=== PATIENT | female | born 1935 | race Caucasian/White ===

== ENCOUNTER → 2017-07-29 | Outpatient (CLI) | payer OTHER | LOC: RAD 11:14 | DX: M25.572 Pain in left ankle and joints of left foot (principal) ==

== ENCOUNTER → 2017-12-18 | Outpatient (CLI) | payer OTHER | LOC: MRI 11:58 | DX: I70.90 Unspecified atherosclerosis (principal); R60.0 Localized edema ==

== ENCOUNTER → 2018-03-09 | Outpatient (CLI) | payer OTHER | LOC: HYPER 06:41 | DX: I70.243 Atherosclerosis of native arteries of left leg with ulceration of ankle (principal); L97.321 Non-pressure chronic ulcer of left ankle limited to breakdown of skin; I73.9 Peripheral vascular disease, unspecified; I10 Essential (primary) hypertension; F17.200 Nicotine dependence, unspecified, uncomplicated ==

== ENCOUNTER → 2018-03-25 | Outpatient (CLI) | payer OTHER | LOC: HYPER 06:45 | DX: I70.243 Atherosclerosis of native arteries of left leg with ulceration of ankle (principal); L97.321 Non-pressure chronic ulcer of left ankle limited to breakdown of skin; I87.2 Venous insufficiency (chronic) (peripheral); I10 Essential (primary) hypertension; F17.200 Nicotine dependence, unspecified, uncomplicated; Z95.1 Presence of aortocoronary bypass graft ==

== ENCOUNTER → 2018-04-15 | Outpatient (CLI) | payer OTHER | LOC: HYPER 07:03 | DX: I70.243 Atherosclerosis of native arteries of left leg with ulceration of ankle (principal); L97.321 Non-pressure chronic ulcer of left ankle limited to breakdown of skin; I10 Essential (primary) hypertension; I25.10 Atherosclerotic heart disease of native coronary artery without angina pectoris; L84 Corns and callosities; F17.200 Nicotine dependence, unspecified, uncomplicated; Z95.1 Presence of aortocoronary bypass graft ==

== ENCOUNTER → 2018-05-12 | Outpatient (CLI) | payer OTHER | LOC: HYPER 06:40 | DX: I70.243 Atherosclerosis of native arteries of left leg with ulceration of ankle (principal); L97.321 Non-pressure chronic ulcer of left ankle limited to breakdown of skin; I10 Essential (primary) hypertension; L84 Corns and callosities; I25.10 Atherosclerotic heart disease of native coronary artery without angina pectoris; F17.200 Nicotine dependence, unspecified, uncomplicated; Z95.0 Presence of cardiac pacemaker ==

== ENCOUNTER 2018-05-23 11:16 | Emergency (ER) | payer OTHER ==
[~2018-05-23] VITALS: Ht 165.1 cm; Wt 53.1 kg
--- NOTE | ~2018-05-23 | EKG ---
[place] [address] [facility] [place] [address] ELECTROCARDIOGRAM REPORT Name: NEIDA TYSON Room #: [facility]#: [id number] Admission: 05/23/18 Attend Phys: Discharge: Date of : 34 Report #: [id number] THIS REPORT FOR: //name// [facility] ED Test Date: 2018-05-23 Test Time: 11:45:04 Pat Name: NEIDA TYSON Department: Room: Gender: F Pier Hand Helper: KRISTOPHER : 1935 Requested By: Ezio Donovan Order Number: [id number] MD: Darrel Ayoub Measurements Intervals [place] Rate: 58 P: 86 HI: 157 QRS: 35 QRSD: 97 T: 33 QT: 438 QTc: 431 Interpretive Statements Sinus bradycardia Probable left atrial enlargement Otherwise no significant abnormality Compared to ECG 11/24/2003 21:34:17 No significant change was found Electronically Signed On 05-23-2018 13:57:27 CDT by Darrel Ayoub [email or web address] <ELECTRONICALLY SIGNED> By: Darrel Ayoub MD, [facility] 05/23/18 1357 1145 1145 Darrel Ayoub MD, FACC /EPI
[2018-05-23 11:39] LABS: ABSOLUTE NEUTROPHILS 3.4 thou/uL (1.4-8.2); BASOPHILS 0.6 % (0.0-2.0); EOSINOPHILS 1.4 % (0.0-3.0); HEMATOCRIT 34.4 % (37.0-47.0); HEMOGLOBIN 11.5 gm/dL (12.0-15.0); LYMPHOCYTES 20.8 % (24.0-44.0); MCH 27.3 pg (26.0-34.0); MCHC 33.4 g/dL (28.0-37.0); MCV 81.8 fL (80.0-100.0); MONOCYTES 11.8 % (1.0-8.0); PLATELET COUNT 237 thou/uL (150-400); POLYS 65.4 % (36.0-66.0); RDW 16.1 % (10.5-14.5); WBC 5.3 thou/uL (4.0-11.0)
[2018-05-23 11:49] LABS: ANION GAP 8 mmol/L (7-16); BUN 19 mg/dL (7-18); CALCIUM 9.1 mg/dL (8.5-10.1); CHLORIDE 100 mmol/L (98-107); CO2 24 mmol/L (21-32); CREATININE 0.9 mg/dL (0.6-1.0); GLUCOSE 109 mg/dL (74-106); POTASSIUM 4.6 mmol/L (3.5-5.1); SODIUM 132 mmol/L (136-145)
[2018-05-23 11:50] LABS: URINE BILIRUBIN NEGATIVE (Negative); URINE BLOOD NEGATIVE (Negative); URINE CLARITY CLEAR; URINE COLOR YELLOW; URINE GLUCOSE-RANDOM* NEGATIVE (Negative); URINE KETONES 1+ (Negative); URINE LEUKOCYTES-REFLEX NEGATIVE (Negative); URINE NITRITE-REFLEX NEGATIVE (Negative); URINE PROTEIN (DIPSTICK) TRACE (Negative); URINE SPECIFIC GRAVITY 1.015 (1.005-1.035); URINE UROBILINOGEN 0.2 E.U./dl (0.2-1.0)
[2018-05-23 11:56] LABS: TROPONIN-I <0.06 ng/mL (<0.06)
[2018-05-23 15:47] VITALS: BP 155/87
== END 2018-05-23 15:49 | disposition home or self-care (01) ==
LOC: ER 11:16
PROVIDERS: Emergency Medicine
DX: E86.0 Dehydration (principal); F17.210 Nicotine dependence, cigarettes, uncomplicated

== ENCOUNTER → 2018-08-06 | Outpatient (CLI) | payer OTHER | LOC: HYPER 08:09 | DX: I70.243 Atherosclerosis of native arteries of left leg with ulceration of ankle (principal); L97.321 Non-pressure chronic ulcer of left ankle limited to breakdown of skin; L84 Corns and callosities; I10 Essential (primary) hypertension; F17.200 Nicotine dependence, unspecified, uncomplicated; Z95.828 Presence of other vascular implants and grafts ==

== ENCOUNTER → 2019-01-21 | Outpatient (CLI) | payer OTHER ==
[~2019-01-21] VITALS: Ht 162.6 cm; Wt 53.1 kg
[~2019-01-21] MED LIST: ASPIR 8181 MG PO; CENTRUM SILVER1 EAC4 PO; CLONIDINE0.1 PO; GABAPENTIN 100100 MG PO; NORVASC5 MG PO; PLAVIX 75 MG TA75 M1 PO; TYLENOL EXTRA500 MG PO
[2019-01-21 08:35] VITALS: BP 101/47
== END | disposition home or self-care (01) ==
LOC: SPEC 07:48
DX: I70.213 Atherosclerosis of native arteries of extremities with intermittent claudication, bilateral legs (principal); I70.1 Atherosclerosis of renal artery; I74.3 Embolism and thrombosis of arteries of the lower extremities; R00.1 Bradycardia, unspecified; Z98.890 Other specified postprocedural states; I10 Essential (primary) hypertension; Z87.891 Personal history of nicotine dependence

== ENCOUNTER 2019-04-16 07:38 | Inpatient (IN) | payer OTHER ==
[~2019-04-16] VITALS: Ht 162.6 cm; Wt 54.6 kg
--- NOTE | ~2019-04-16 | H ---
[facility] [place] [address] HISTORY AND PHYSICAL Name: NEIDA TYSON Room #: 210-P ADM IN M.R.#: [id number] Admission: 04/16/19 ������������������ Attend Phys: Blaine Long MD Discharge: ������������������ Date of : 34 Report #: [id number] THIS REPORT FOR: //name// CC: Chevy Long DATE OF SERVICE: 04/16/2019 ATTENDING PHYSICIAN: Dr. Long. CHIEF COMPLAINT: Feeling lightheaded and having episode of near passing out. HISTORY OF PRESENT ILLNESS: The patient is an 83-year-old lady with known history of severe peripheral vascular disease and hypertension, who was complaining of having intermittent dizziness for the last 2 days. She woke up the morning of 04/16 and while she was making coffee, she has felt like she was going to pass out and had episode of diaphoresis. She denied having any chest pain, but did report that she had to sit down and was feeling lightheaded. The patient was brought to the Emergency Room and noted to have atrial fibrillation. The patient does not give any prior history of AFib. In view of her new onset of AFib, she was admitted to the hospital and admitted to telemetry and started on a Cardizem drip. This morning, she is feeling fine. Denies having any breathing difficulty. PAST MEDICAL HISTORY: Significant for history of the knee arthritis, history of rib fracture, carotid artery stenosis, status post right endarterectomy, essential hypertension, left lateral ankle ulcer, mesenteric artery stenosis and peripheral vascular disease. PAST SURGICAL HISTORY: Tonsillectomy, adenectomy, carotid endarterectomy. ALLERGIES: She is not known to be allergic to medications. MEDICATIONS: She was currently on was mag oxide, Tylenol, amlodipine, aspirin, clonidine 0.1 mg twice a day, Plavix, gabapentin and multivitamin. SOCIAL HISTORY: The patient does smoke. She drinks alcohol daily. She lives alone independently. REVIEW OF SYSTEMS: She denied any cough, fever, nausea, vomiting or chest pain. The patient did complain of having dizziness, did not report any abdominal pain or any urinary symptoms. PHYSICAL EXAMINATION: GENERAL: Pleasant lady who was resting in bed, did not appear to be in distress. She is awake, alert to place and person. [address] [address] HISTORY AND PHYSICAL Name: NEIDA TYSON Room #: [address] [place] [address]#: [id number] Admission: 04/16/19 ������������������ Attend Phys: Blaine Long MD Discharge: ������������������ Date of : 34 Report #: [id number] VITAL SIGNS: She was febrile with a temperature 36.7, pulse of 72, which was irregular, respiratory rate 18, blood pressure 148/67, oxygen saturation 100% on room air. HEENT: Skull was atraumatic. There is no pallor, no icterus. Mucosa was moist. NECK: Supple. LUNGS: Clear to auscultation bilaterally, no wheeze or crackles. HEART: First and second heart sound, which is regular. ABDOMEN: Soft, nontender. Bowel sounds normally heard. EXTREMITIES: Did not reveal edema. NEUROLOGIC: Nonfocal. LABORATORY DATA: On admission showed a sodium of 136, potassium 4.6, chloride 101, bicarbonate 26, BUN of 21, creatinine of 1, glucose was 122. White cell count was 6.1, hemoglobin 13.3, hematocrit 40.3 and a platelet count of 247. EKG showed atrial fibrillation with a rate of 100, normal axis, normal intervals, and there are no acute ST-segment changes noted. Urine was clear. Chest x-ray was clear, no acute process was noted on chest x-ray. ASSESSMENT: 1. New onset of atrial fibrillation. 2. Hypertension. 3. Peripheral vascular disease. PLAN: To admit her to telemetry, started on Cardizem drip and have a cardiology consultation. ��������������������������������������������� ���������������������������������������� By: ��������������������������������������������� 1001 1032 Alfred Monzon MD /nt
[2019-04-16 07:39] VITALS: BP 142/103
[2019-04-16] MEDS ORDERED: MAGOX 400400 MG PO (07:48)
[2019-04-16 07:49] LABS: ABSOLUTE NEUTROPHILS 4.3 thou/uL (1.4-8.2); BASOPHILS 0.3 % (0.0-2.0); EOSINOPHILS 1.2 % (0.0-3.0); HEMATOCRIT 40.3 % (37.0-47.0); HEMOGLOBIN 13.3 gm/dL (12.0-15.0); LYMPHOCYTES 17.2 % (24.0-44.0); MCH 27.4 pg (26.0-34.0); MCHC 33.1 g/dL (28.0-37.0); MCV 82.6 fL (80.0-100.0); MONOCYTES 10.1 % (1.0-8.0); PLATELET COUNT 247 thou/uL (150-400); POLYS 71.2 % (36.0-66.0); RBC 4.88 mil/uL (4.20-5.00); RDW 16.1 % (10.5-14.5); WBC 6.1 thou/uL (4.0-11.0)
[2019-04-16 07:57] LABS: ANION GAP 9 mmol/L (7-16); BUN 21 mg/dL (7-18); CALCIUM 9.4 mg/dL (8.5-10.1); CHLORIDE 101 mmol/L (98-107); CO2 26 mmol/L (21-32); GLUCOSE 122 mg/dL (74-106); POTASSIUM 4.6 mmol/L (3.5-5.1); SODIUM 136 mmol/L (136-145)
[2019-04-16 08:05] LABS: TROPONIN-I <0.06 ng/mL (<0.06)
[2019-04-16 09:04] LABS: URINE BILIRUBIN NEGATIVE (Negative); URINE BLOOD TRACE (Negative); URINE CLARITY CLEAR; URINE COLOR YELLOW; URINE GLUCOSE-RANDOM* NEGATIVE (Negative); URINE KETONES NEGATIVE (Negative); URINE NITRITE-REFLEX NEGATIVE (Negative); URINE PROTEIN (DIPSTICK) NEGATIVE (Negative); URINE UROBILINOGEN 0.2 E.U./dl (0.2-1.0)
[2019-04-16 09:05] LABS: URINE LEUKOCYTES-REFLEX 1+ (Negative)
[2019-04-16 09:15] LABS: BACTERIA-REFLEX 1-9 Few /HPF (None Seen); CASTS None Seen /LPF (None Seen); CRYSTALS None Seen /LPF (None Seen); SQUAMOUS 0-3 Few /LPF (0-3); URINE RBC 0-2 Rare /HPF (0-2); URINE WBC-REFLEX 0-5 Rare /HPF (0-5)
[2019-04-16 10:22] VITALS: BP 127/53
[2019-04-16 11:00] VITALS: BP 156/64
[2019-04-16 16:00] VITALS: BP 115/56
--- NOTE | 2019-04-16 16:57 | 2DMMODE ---
[facility] [address] [place] [address] 2 D/M-MODE ECHOCARDIOGRAM Name: NEIDA TYSON Room #: 210-P ADM IN .R.#: [id number] ������������� Admission: 04/16/19 ������������� Attend Phys: Hammad Chamorro Discharge: ��� ������������� ��� Date of : 34 Date of Service: 04/16/19 1657 �� Report #: [id number] �������� ��������������������������������������������[id number] THIS REPORT FOR: //name// APPROVED REPORT Study performed: 04/16/2019 15:29:46 EXAM: Comprehensive 2D, Doppler, and color-flow Echocardiogram Patient Location: In-Patient Room #: 210 Status: routine BSA: 1.59 HR: 92 bpm BP: 127/53 mmHg Other Information Study Quality: Adequate Risk Factors: Cardiac Risk Factors: HTN, Smoking Indications Atrial Fibrillation 2D Dimensions IVSd: 8.72 (7-11mm) LVOT Diam: 18.57 (18-24mm) LVDd: 39.40 mm PWd: 9.23 (7-11mm) Ascending Ao: 21.40 (22-36mm) LVDs: 21.08 (25-40mm) Left Atrium: 30.16 (27-40mm) Aortic Root: 31.64 mm IVC: 19.00 mm Aortic Valve AoV Peak Dell.: 1.26 m/s AO Peak Gr.: 6.91 mmHg LVOT Max P.60 mmHg LVOT Max V: 0.95 m/s MACY Vmax: 2.04 cm2 Mitral Valve E/A Ratio: 3.6 MV Decel. Time: 176.66 ms MV E Max Dell.: 0.97 m/s MV A Dell.: 0.27 m/s MV PHT: 51.23 ms [facility] [place] [address] 2 D/M-MODE ECHOCARDIOGRAM Name: NEIDA TYSON Room #: 210-P [facility].#: [id number] ������������� Admission: 04/16/19 ������������� Attend Phys: Hammad Chamorro Discharge: ��� ������������� ��� Date of : 34 Date of Service: 04/16/19 1657 �� Report #: [id number] �������� ��������������������������������������������[id number] Pulmonary Valve PV Peak Dell.: 1.02 m/s PV Peak Gr.: 4.15 mmHg Pulmonary Vein P Vein S: 0.35 m/s P Vein D: 0.57 m/s P Vein S/D Ratio: 0.61 Tricuspid Valve TR Peak Dell.: 3.02 m/s TR Peak Gr.: 36.36 mmHg Left Ventricle The left ventricle is normal size. There is normal LV segmental wall motion. There is normal left ventricular wall thickness. The left ventricular systolic function is normal. The left ventricular ejection fraction is within the normal range. LVEF is >55%. The left ventricular diastolic function is normal. Right Ventricle The right ventricle is normal size. There is normal right ventricular wall thickness. The right ventricular systolic function is normal. Atria The left atrium size is normal. The interatrial septum is intact with no evidence for an atrial septal defect. The right atrium size is normal. Aortic Valve The aortic valve is not well visualized. No aortic regurgitation is present. There is no aortic valvular stenosis. Mitral Valve The mitral valve is normal in structure. Trace mitral regurgitation. No evidence of mitral valve stenosis. There is no evidence of mitral valve prolapse. Tricuspid Valve The tricuspid valve is normal in structure. There is no tricuspid valve stenosis. Trace tricuspid regurgitation with an estimated PAP of 39 mmHg. Pulmonic Valve Pulmonic valve is not well visualized. There is no pulmonic valvular regurgitation. [place] [id number] 2 D/M-MODE ECHOCARDIOGRAM Name: NEIDA TYSON Room #: 210-P [facility] IN .R.#: [id number] ������������� Admission: 04/16/19 ������������� Attend Phys: Hammad Chamorro Discharge: ��� ������������� ��� Date of : 33 Date of Service: 04/16/19 1657 �� Report #: [id number] �������� ��������������������������������������������[id number] [employer] The aortic root is normal in size. IVC is normal in size and collapses >50% with inspiration. Pericardium There is no pericardial effusion. Critical Notification Critical Value: No <Conclusion> The left ventricle is normal size. LVEF is >55%. The aortic valve is not well visualized. The mitral valve is normal in structure. The tricuspid valve is normal in structure. Trace tricuspid regurgitation with an estimated PAP of 39 mmHg. There is no pericardial effusion. ��������������������������������������������� <ELECTRONICALLY SIGNED> ���������������������������������������� By: Jean Carlos Lowe MD ��������������������������������������������� 04/16/191656 56 56 Jean Carlos Lowe MD /INF
--- NOTE | 2019-04-16 17:18 | NUR ---
83 YO FEMALE ADMITTED TO 210 FROM ED, VSS, AFIB ON TELE, ALERT AND ORIENTED X 4, COMPLAINS OF SYNCOPE WHEN STANDING UP, NO COMPLAINTS OF PAIN, WILL CONTINUE TO MONITOR
[2019-04-16 20:17] VITALS: BP 112/49
[2019-04-17] VITALS: BP 133/69
[2019-04-17 04:06] VITALS: BP 158/68
--- NOTE | 2019-04-17 05:05 | NUR ---
ASSUMED PT CARE AT 1900 WITH NO SIGN OF DISTRESS NOTED IN PT. PT IS LAYING IN BED COMFORTABLE. NO FAMILY AT BEDSIDE. PT IS ALERT AND ORIENTED, ROOM AIR. VITAL SIGNS STABLE. AFIB IS PRESENT AND CARDIZEM DRIP IS BEEN GIVE. NO SCHEDULE HS MEDS ADMINISTERED TO PT. NO COMPLAINTS OF PAIN BY PATIENT, FALL PRECAUTION IN PLACE. NO SIGN OF DISTRESS NOTED THROUGHOUT THE NIGHT, DENIES ANY NEEDS AT THIS TIME.
[2019-04-17 08:31] VITALS: BP 148/67
--- NOTE | 2019-04-17 14:13 | NUR ---
ASSUMED CARE AT 0700, SHIFT ASSESSMENT DONE, VSS. REMAINS ON CARDIZEM DRIP, STILL AFIB ON THE MONITOR, RATE CONTROLLED, OCCASIONAL TACYCARDIA WITH ACTIVITY. DENIES ANY NAUSEA, VOMITING, PAIN. CALLS APPROPRIATELY, ROOM AIR. WILL CONTINUE TO ASSESS AND ASSIST WITH ADLs NEEDED.
[2019-04-17 16:00] VITALS: BP 130/63
[2019-04-17 19:42] VITALS: BP 146/64
--- NOTE | 2019-04-18 05:03 | NUR ---
ASSUMED PT CARE AT 1900 WITH NO SIGN OF DISTRESS NOTED IN PT, PT IS ALERT AND ORIENTED AND DENIES ANY NEED AT THIS TIME. ASSESSMENT COMPLETED AND CHARTED. VITAL SIGNS STABLE. SCHEDULED MEDS ADMINISTERED TO PT. PT IS EDUCATED ON STRESS TEST TO BE DONE, PT VERBALIZES UNDERSTANDING. DENIES ANY FURTHER NEEDS AT THIS TIME.
[2019-04-18 05:16] VITALS: BP 130/62
[2019-04-18 07:16] VITALS: BP 141/72
[2019-04-18 08:00] VITALS: BP 139/75
--- NOTE | 2019-04-18 09:05 | EKG ---
[place] [address] [facility] [place] [address] ELECTROCARDIOGRAM REPORT Name: TRICIA TYSONN Rodriguez Room #: 210-P ADM IN M.R.#: [id number] ������������������ Admission: 04/16/19 ������������������ Attend Phys: Blaine Long MD Discharge: ������������������ Date of : 34 Report #: [id number] ����������������������������������������������������������������� [id number] THIS REPORT FOR: //name// [facility] ED Test Date: 2019-04-16 Test Time: 07:48:47 Pat Name: NEIDA TYSON Department: Room: 210 Gender: F Service Delivery Management Consultant: Rosanne BOND RN : 1935 Requested By: Ezio Donovan Order Number: [id number] MD: Darrel Ayoub Measurements Intervals [place] Rate: 105 P: [place]: QRS: 45 QRSD: 93 T: -80 QT: 309 QTc: 409 Interpretive Statements Atrial fibrillation Borderline repolarization abnormality Compared to ECG 05/23/2018 11:45:04 Sinus bradycardia no longer present Electronically Signed On 04-18-2019 9:04:44 CDT by Darrel Ayoub [email or web address] ��������������������������������������������� <ELECTRONICALLY SIGNED> ���������������������������������������� By: Darrel Ayoub MD, [facility] ��������������������������������������������� 04/18/19 0904 7 Darrel Ayoub MD, [facility] /EPI
[2019-04-18 15:28] VITALS: BP 115/51
[2019-04-18 17:49] VITALS: BP 115/51
--- NOTE | 2019-04-20 12:25 | D ---
[facility] [place] [address] DISCHARGE SUMMARY Name: NEIDA TYSON Room #: 210-P [facility] IN M.R.#: [id number] Admission: 04/16/19 ������������������ Attend Phys: Blaine Long MD Discharge: 04/18/19 ������������������ Date of : 34 Report #: [id number] THIS REPORT FOR: //name// CC: Chevy Long DATE OF SERVICE: 04/18/2019 FINAL DIAGNOSIS: Atrial fibrillation. HOSPITAL COURSE: The patient was admitted with tachycardia and was found to have atrial fibrillation. She had some mild prerenal azotemia with elevated BUN, but this was minimal in extent. She was treated medically and followed by the Cardiology Service. Echocardiogram and nuclear stress test were obtained, which were fairly unremarkable. Rate control was obtained and she was placed on Eliquis for stroke prevention. DISPOSITION: She is discharged to home with diet and activity as tolerated. Follow up with Dr. Davis in a week. MEDICATIONS: Tylenol, aspirin 81 mg, clonidine 0.1 mg b.i.d., Plavix 75 mg, gabapentin 100 mg, multivitamin, magnesium, amlodipine is discontinued and she will have verapamil 180 mg a day and Eliquis 5 mg twice a day. ��������������������������������������������� <ELECTRONICALLY SIGNED> ���������������������������������������� By: Blaine Long MD ��������������������������������������������� 04/20/19 1225 1031 1050 Blaine Long MD /nt
== END 2019-04-18 18:46 | disposition home or self-care (01) | DRG 310 ==
LOC: ER 07:38 → 2N 09:21 → EROBS 09:21 → 2N 10:39
PROVIDERS: Emergency Medicine; ADMIT Internal Medicine Geriatric Medicine
DX: I48.91 Unspecified atrial fibrillation (principal); I10 Essential (primary) hypertension; I73.9 Peripheral vascular disease, unspecified; F17.210 Nicotine dependence, cigarettes, uncomplicated; Z87.81 Personal history of (healed) traumatic fracture; Z79.02 Long term (current) use of antithrombotics/antiplatelets; Z79.82 Long term (current) use of aspirin; Z79.899 Other long term (current) drug therapy
CPT/HCPCS: 10081

== ENCOUNTER 2019-04-20 10:50 | Inpatient (IN) | payer OTHER ==
[2019-04-20] VITALS (33 sets, daily range): BP systolic 70–163; BP diastolic 31–98
[~2019-04-20] VITALS: Ht 162.6 cm; Wt 58.7 kg
--- NOTE | ~2019-04-20 | HC ---
[facility] [place] [address] CONSULTATION Name: NEIDA TYSON Room #: 246-P ADM IN M.R.#: [id number] Admission: 04/20/19 ������������������ Attend Phys: Blaine Long MD Discharge: ������������������ Date of : 34 Report #: [id number] THIS REPORT FOR: //name// CC: Chevy Long DATE OF SERVICE: 04/21/2019 SURGICAL CONSULTATION REASON FOR CONSULTATION: Weakness and hypotension and abnormal CT scan, possible hemorrhage in the abdomen. HISTORY OF PRESENT ILLNESS: The patient is an 83-year-old who is known to me. 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 The patient was recently hospitalized on Thursday, the . The patient came in because of feeling lightheaded and near syncopal episode. The patient was noted to have atrial fibrillation with RVR. The patient went home on Thursday on Eliquis and another medication. The patient was feeling good yesterday and she took her pills and then she started to feel bad. The patient also happened to be on aspirin and Plavix also. The patient started to see things and then had an episode of diarrhea. She has reportedly some back pain. She denies any abdominal pain, no nausea or vomiting. The patient came to the Emergency Room and apparently she was given fluid in the transport by EMS and also atropine. She was given some more fluids in the ER and then blood pressure was low 88/44. The patient was started on a pressor. The patient had a CT performed, which is quite extensive. There is some free fluid. The radiologist thought that there maybe a little bit of fluid in pelvis , but the CT scan was done without contrast. The patient is being on a new blood thinner. The nurse from the ICU called for evaluation. The patient was recommended to be typed and crossed just in case her hemoglobin drops and actually overnight her hemoglobin has stayed fine. White count is normal, lactic acid is normal. Her creatinine is fine. The patient this morning is feeling better, but she is still quite weak. She does not have any complaining of abdominal pain. She has not had any prior surgeries to speak of except for cataracts. The patient does smoke and then she does drink couple of small scotch. PHYSICAL EXAMINATION: GENERAL: The patient is alert and oriented. She is not in distress. LUNGS: Clear. ABDOMEN: She is soft, nondistended, nontender. No guarding or rigidity. Laboratory was evaluated and her hemoglobin is stable at 10.2, white count 9000, platelets are 210. Creatinine 0.9, BUN 20. The patient did not require any pressors. After talking to the nurse from the [address] [address] CONSULTATION Name: NEIDA TYSON Room #: 246-P ADM IN M.R.#: [id number] Admission: 04/20/19 ������������������ Attend Phys: Blaine Long MD Discharge: ������������������ Date of : 34 Report #: [id number] ICU, about 5 o'clock she weaned her off the pressors. She did have significant hypotension early afternoon yesterday. I am not quite sure maybe she was quite dehydrated. 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 Unfortunately, he did pass away last year in September. She is still pretty active. She did have some difficulty last Thursday and hospitalized with diagnosis of atrial fibrillation with rapid ventricular response. The patient sent home on verapamil and Eliquis. She is also on Plavix and aspirin, which does raise the possibility that she has some bleeding may be possible spontaneous bleeding. I do not see anything in bleeding in the retroperitoneum. She does have some ascites. It is hard to tell that is blood. The patient's hemoglobin has not dropped any, so I doubt that she has had any bleeding complication. I do not find anything on exam to suggest any acute process. No evidence of peritonitis. She did have an episode of diarrhea. I do not know if it is worth doing a colonoscopy. GI is here looking at her. My impression was discussed with GI and also Dr. Edy Davis. At this point, I do not think a contrast CT scan of the abdomen and pelvis much. We will follow. ��������������������������������������������� ���������������������������������������� By: ��������������������������������������������� 1034 1519 Vlad Morgan MD /nt
[~2019-04-20 10:50] MED LIST changes: +MAGOX 400400 MG PO
[2019-04-20 11:30] LABS: BASOPHILS 0.3 % (0.0-2.0); EOSINOPHILS 0.3 % (0.0-3.0); HEMOGLOBIN 9.7 gm/dL (12.0-15.0); LYMPHOCYTES 9.2 % (24.0-44.0); MCH 27.2 pg (26.0-34.0); MCHC 32.5 g/dL (28.0-37.0); MCV 83.8 fL (80.0-100.0); MONOCYTES 8.7 % (1.0-8.0); PLATELET COUNT 219 thou/uL (150-400); POLYS 81.5 % (36.0-66.0); RBC 3.57 mil/uL (4.20-5.00); RDW 16.3 % (10.5-14.5); WBC 7.3 thou/uL (4.0-11.0)
[2019-04-20 11:32] LABS: ANION GAP 10 mmol/L (7-16); BUN 24 mg/dL (7-18); CALCIUM 8.2 mg/dL (8.5-10.1); CHLORIDE 101 mmol/L (98-107); CO2 23 mmol/L (21-32); CREATININE 1.1 mg/dL (0.6-1.0); GLUCOSE 155 mg/dL (74-106); POTASSIUM 4.5 mmol/L (3.5-5.1); SODIUM 134 mmol/L (136-145)
[2019-04-20 11:32] LABS: URINE BILIRUBIN NEGATIVE (Negative); URINE BLOOD NEGATIVE (Negative); URINE CLARITY CLEAR; URINE COLOR YELLOW; URINE GLUCOSE-RANDOM* NEGATIVE (Negative); URINE KETONES NEGATIVE (Negative); URINE LEUKOCYTES-REFLEX NEGATIVE (Negative); URINE NITRITE-REFLEX NEGATIVE (Negative); URINE PROTEIN (DIPSTICK) NEGATIVE (Negative); URINE UROBILINOGEN 0.2 E.U./dl (0.2-1.0)
[2019-04-20 11:37] LABS: APTT 25.4 Seconds (24.5-32.8); INR 1.1; PROTIME 11.3 Seconds (9.3-11.4)
[2019-04-20 11:42] LABS: ALBUMIN 2.9 g/dL (3.4-5.0); MAGNESIUM 1.9 mg/dL (1.8-2.4); SGOT 67 U/L (15-37); SGPT 56 U/L (30-65); TOTAL BILIRUBIN 0.3 mg/dL (<0.1-1.0); TOTAL PROTEIN 5.9 g/dL (6.4-8.2); TROPONIN-I <0.06 ng/mL (<0.06)
[2019-04-20] MEDS ORDERED: ELIQUIS5 MG PO (11:51)
[2019-04-20] MEDS ORDERED: CLONIDINE HCL0.1 MG PO (11:51)
[2019-04-20] MEDS ORDERED: VERAPAMIL HCL180 M2 PO (11:51)
--- NOTE | 2019-04-20 13:37 | NUR ---
PER SHALOM IN ICU, JALEESA WILL BE RN; OFF UNIT PRIOR TO ROOM ASSIGNMENT; JALEESA WILL CALL ME BACK ONCE RETURNS TO ICU
--- NOTE | 2019-04-20 18:42 | NUR ---
ORDER VERIFIED. CONSENT OBTAINED. TL PICC PLACED TO R BASILIC VEIN WITH U.S GUIDANCE PER HOSPITAL P&P. LIDOCAINE 2ML SQ GIVEN. VEIN ACCESSED WITH 1 STICK. GUIDEWIRE ADVANCED EASILY. VEIN DILATED. GUIDEWIRE REMOVED INTACT. LINE TRIMMED TO 40CM. LINE PLACED WITH 3CM EXTERNAL. CXR OBTAINED. LINE IN THE SVC. PICC OK TO USE
[2019-04-20 18:46] LABS: HEMATOCRIT 31.6 % (37.0-47.0); HEMOGLOBIN 10.4 gm/dL (12.0-15.0); MCH 27.3 pg (26.0-34.0); MCV 82.9 fL (80.0-100.0); RBC 3.82 mil/uL (4.20-5.00); RDW 16.3 % (10.5-14.5); WBC 10.9 thou/uL (4.0-11.0)
[2019-04-20 18:53] LABS: CALCIUM 7.7 mg/dL (8.5-10.1); CREATININE 1.4 mg/dL (0.6-1.0); POTASSIUM 4.8 mmol/L (3.5-5.1)
--- NOTE | 2019-04-20 19:30 | NUR ---
Pt was admitted to the ICU from ED. Reported low back pain of 10/10. Dr Long was notified and CT Scan of Abd/Pelvis was obtained. Dr Long notified of results and additional orders obtained. Pt was medicated with one dose of Fentanyl 12.5 mg IV with minimal pain relief. Consults called. Weaning Levopehd gtt down. Report given to RN assuming care.
[2019-04-21] VITALS (40 sets, daily range): BP systolic 120–194; BP diastolic 34–89
[2019-04-21 00:16] LABS: HEMATOCRIT 28.6 % (37.0-47.0); HEMOGLOBIN 9.5 gm/dL (12.0-15.0)
[2019-04-21 05:36] LABS: HEMOGLOBIN 10.2 gm/dL (12.0-15.0); MCH 27.4 pg (26.0-34.0); MCHC 32.9 g/dL (28.0-37.0); MCV 83.2 fL (80.0-100.0); RBC 3.73 mil/uL (4.20-5.00); RDW 16.2 % (10.5-14.5)
[2019-04-21 05:44] LABS: CALCIUM 7.5 mg/dL (8.5-10.1); CREATININE 0.9 mg/dL (0.6-1.0); POTASSIUM 4.3 mmol/L (3.5-5.1)
--- NOTE | 2019-04-21 07:28 | EKG ---
[place] [address] [facility] [place] [address] ELECTROCARDIOGRAM REPORT Name: TRICIA TYSONN Rodriguez Room #: 246-P ADM IN M.R.#: [id number] ������������������ Admission: 04/20/19 ������������������ Attend Phys: Blaine Long MD Discharge: ������������������ Date of : 34 Report #: [id number] ����������������������������������������������������������������� [id number] THIS REPORT FOR: //name// [facility] ED Test Date: 2019-04-20 Test Time: 10:57:32 Pat Name: NEIDA TYSON Department: Room: 246 Gender: F Van Loader: LILA : 1935 Requested By: Santiago Casarez Order Number: [id number] MD: Darrel Ayoub Measurements Intervals [place] Rate: 53 P: [place]: QRS: 48 QRSD: 111 T: 40 QT: 511 QTc: 480 Interpretive Statements Atrial fibrillation RSR' in V1 or V2, probably normal variant Compared to ECG 04/16/2019 07:48:47 Heart rate has slowed Electronically Signed On 04-21-2019 7:28:24 CDT by Darrel Ayoub [email or web address] ��������������������������������������������� <ELECTRONICALLY SIGNED> ���������������������������������������� By: Darrel Ayoub MD, [facility] ��������������������������������������������� 04/21/19 0728 1057 105 Darrel Ayoub MD, [facility] /EPI
--- NOTE | 2019-04-21 07:43 | NUR ---
PT ADMITTED YESTERDAY AFTERNOON. PT INITALLY ON LEVO GTT FOR BP SUPPORT, BUT WAS TURNED OFF AT 2049 LAST NIGHT AND WAS NOT REQUIRED AGAIN. PT IS NOW HYPERTENSIVE. SPOKE WITH DR. CLEVELAND FOR ID CONSULT, ORDERS FOR VANC, STOOL CX, AND C-DIFF ORDERED. PT DID NOT HAVE A BM OVERNIGHT. PT DENIES NAUSEA AND PAIN, AND REPORTS "FEELING BETTER" THAN WHEN SHE CAME TO THE HOSPITAL. WILL CONTINUE TO MONITOR.
--- NOTE | 2019-04-21 09:48 | H ---
[facility] [place] [address] HISTORY AND PHYSICAL Name: NEIDA TYSON Room #: 246-P [facility] IN .R.#: [id number] Admission: 04/20/19 ������������������ Attend Phys: Blaine Long MD Discharge: ������������������ Date of : 34 Report #: [id number] THIS REPORT FOR: //name// CC: Chevy Long DATE OF SERVICE: 04/20/2019 CHIEF COMPLAINT: Weakness. HISTORY OF PRESENT ILLNESS: The patient is an 83-year-old female who came back to the Emergency Room today with weak and dizzy spell. There was an apparent complaint of abdominal pain and diarrhea that started this morning and she was dizzy. She felt a very dry mouth and was just weak all over. She had a recent stay for rapid atrial fibrillation and was just discharged with anticoagulation including Eliquis and rate control of verapamil. She denied any fever, chills, productive cough or dysuria. PAST MEDICAL HISTORY: Hypertension, peripheral artery disease. 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 She had a carotid endarterectomy. PAST SURGICAL HISTORY: As above. FAMILY HISTORY: Noncontributory. SOCIAL HISTORY: She lives at home. No chronic alcohol use. She has a 30-shev-rfoh history of smoking, but quit several years ago. ALLERGIES: None. MEDICATIONS: Eliquis 5 mg twice a day, verapamil ER 180 mg a day, clonidine 0.1 mg a day, magnesium, Tylenol, aspirin, Plavix 75 mg, Neurontin 100 mg at bedtime, multivitamin. REVIEW OF SYSTEMS: She just complains of feeling weak all over. No headache, chest pain, shortness of breath. Denies current nausea, abdominal pain, dysuria, syncope. OBJECTIVE: VITAL SIGNS: Temperature 35.4, pulse 44, respirations 13, blood pressure 88/44, O2 sat 98% on room air. GENERAL: She is awake, but drowsy, resting in bed, appears weak, recognizes me. HEAD AND NECK: She has dry mucus membranes, some pallor of the lips. LUNGS: Clear bilateral. HEART: Bradycardic, regular. No murmur. [facility] [address] [place] [address] HISTORY AND PHYSICAL Name: NEIDA TYSON Room #: 246-P [facility] IN ..#: [id number] Admission: 04/20/19 ������������������ Attend Phys: Blaine Long MD Discharge: ������������������ Date of : 34 Report #: [id number] ABDOMEN: Soft, normoactive bowel sounds. No rebound or guarding. EXTREMITIES: No cyanosis, clubbing or edema. NEUROLOGIC: She moves all extremities. She is aware of being at the hospital. LABORATORY REVIEW: Urinalysis was negative. White count normal, hemoglobin 9.7. Coagulation studies normal. Creatinine 1.1, lactic acid was 2. LFTs were normal. Troponin was negative. Blood and urine cultures are pending. Chest x-ray shows diffuse interstitial opacities similar to a few days ago and similar to 2 years ago. ASSESSMENT: 1. Hypotension. 2. Bradycardia. 3. Atrial fibrillation with slow ventricular response. 4. History of peripheral vascular disease. 5. History of hypertension. PLAN: She will be admitted to ICU. She received 3 liters of IV fluid in the ER and remains hypotensive. Levophed will be initiated, this may be a medication effect. She did give initial reports of abdominal symptoms and KUB will be ordered for now. Cardiology service is consulted. ��������������������������������������������� <ELECTRONICALLY SIGNED> ���������������������������������������� By: Blaine Long MD ��������������������������������������������� 04/21/19 0948 1325 1336 Blaine Long MD /nt
[2019-04-21 10:34] LABS: % SATURATION 6 % (20-39); IRON 19 ug/dL (50-170); TIBC 344 ug/dL (250-450)
--- NOTE | 2019-04-21 15:07 | NUR ---
INITIAL ASSESSMENT: SW reviewed chart. Pt was admitted from home due to weakness/abdominal pain/ diarrhea. Pt was recently discharged home on 04/18 after being admitted for A-fib. Pt discharged home on Eliquis. Eliquis is currently on hold for possible EGD/colonoscopy per GI. SW met with pt at bedside. Introduced role of SW. Pt is alert/orientated x 4. Pt reports she lives at home alone. Pt has 7 steps to enter her home from the garage. 7 steps up to her bedroom and then 7 steps up to the loft. Prior to admission, pt was independent with ADLs. No use of DME. No hx of service or SNF/Rehab placement. Pt's spouse recently . Pt's sons, Soham and Romain are supportive and involved in pt's care. Pt's PCP is Dr. Inocente Davis. Pt's goal is to return home when medically stable. SW is following to assist as needed with discharge planning.
--- NOTE | 2019-04-21 16:06 | NUR ---
1510 DR JUAREZ PAGED, PT STILL REQUIRING 5LNC SATS 92%, FINE CRACKES IN BILAT POSTERIOR BASES, COUGHING UP BLOOD TINGED SPUTUM. AWAITING RETURN CALL. 1525 LARRY RETURNED PAGE, ORDERS TO GIVE 40MG LASIX IVP, AND DRAW BMP 1800.
--- NOTE | 2019-04-21 17:46 | NUR ---
PT ALERT AND ORIENTED X4, BP ELEVATED AT TIMES, CARDIOLOGY ON THE CASE, NOTIFIED OF ELEVATED PRESSURES. NO COMPLAINTS OF PAIN. DISCUSSED WITH FAMILY PLANS FOR GI SCOPE 04/22/19, FAMILY AND PT AGREES WITH PLAN. WILL CONTINUE TO MONITOR.
[2019-04-21 17:53] LABS: CALCIUM 8.2 mg/dL (8.5-10.1); CREATININE 0.7 mg/dL (0.6-1.0); POTASSIUM 3.4 mmol/L (3.5-5.1)
[2019-04-22] VITALS (20 sets, daily range): BP systolic 107–182; BP diastolic 35–81
--- NOTE | 2019-04-22 03:44 | NUR ---
ASSUMED CARE OF PT AT 1900 YESTERDAY. REPLACED PT'S POTASSIUM WITH 40 MEQ OF KCL, GIVEN PO. INITIALLY PT WAS C/O LOWER BACK PAIN. ORDER FOR FENTANYL ONETIME OBTAINED AND GIVEN. PT REPORTED PAIN RELIEF AND DENIED PAIN THE REST OF THE NIGHT. PT ON 5L O2 NC, PT'S O2 SAT HAS IMPROVED, NOW RANGING FROM 94-98%. HEART RHYTHM IS SINUS WITH PACs AND PVCs. BP HAS BEEN ELEVATED INTERMITTENTLY THROUGHOUT THE NIGHT, BUT LOWERS WITHOUT MEDICATION AND IS STABLE. PT IS SCHEDULED TO HAVE FLEX SIG DONE TODAY, CONSENT FOR PROCEDURE HAS BEEN SIGNED. ENEMAS ARE TO BE GIVEN AROUND 1000, A FEW HOURS PRIOR TO THE PROCEDURE. WILL CONTINUE TO MONITOR.
[2019-04-22 05:28] LABS: HEMATOCRIT 30.1 % (37.0-47.0); HEMOGLOBIN 10.2 gm/dL (12.0-15.0); MCH 27.7 pg (26.0-34.0); MCV 81.6 fL (80.0-100.0); RBC 3.69 mil/uL (4.20-5.00); WBC 9.5 thou/uL (4.0-11.0)
[2019-04-22 05:40] LABS: CALCIUM 8.1 mg/dL (8.5-10.1); CREATININE 0.6 mg/dL (0.6-1.0)
--- NOTE | 2019-04-22 07:46 | EKG ---
[address] [address] ELECTROCARDIOGRAM REPORT Name: CARISSAGUSTAVOSELENANEIDA J Room #: 246-P ADM IN M.R.#: [id number] ������������������ Admission: 04/20/19 ������������������ Attend Phys: Blaine Long MD Discharge: ������������������ Date of : 34 Report #: [id number] ����������������������������������������������������������������� [id number] THIS REPORT FOR: //name// [facility] Test Date: 2019-04-21 Test Time: 09:38:43 Pat Name: NEIDA TYSON Department: Room: 246 P Gender: F Critical Care Specialist: KATELIN : 1935 Requested By: Maryjo Cabello Order Number: [id number] MD: Darrel Ayoub Measurements Intervals [place] Rate: 81 P: 77 IA: 156 QRS: 30 QRSD: 89 T: 27 QT: 389 QTc: 452 Interpretive Statements Sinus rhythm Atrial premature complex Probable left atrial enlargement Nonspecific ST segment abnormality Compared to ECG 04/20/2019 10:57:32 Atrial premature complex(es) now present Atrial fibrillation no longer present Electronically Signed On 04-22-2019 7:46:31 CDT by Darrel Ayoub [email or web address] ��������������������������������������������� <ELECTRONICALLY SIGNED> ���������������������������������������� By: Darrel Ayoub MD, [facility] ��������������������������������������������� 04/22/19 0746 0938 0938 Darrel Ayoub MD, [facility] /EPI
--- NOTE | 2019-04-22 15:50 | NUR ---
SW reviewed chart. Pt to have flex-sig today and will transfer out of ICU. PT ordered to evaluate pt. Plan is for pt to discharge home when medically stable. SW is following to assist as needed with discharge planning.
--- NOTE | 2019-04-22 17:14 | NUR ---
PT IS ALERT AND ORIENTED X4. LUNGS ARE CLEAR TO DIMINISHED. ON 2 LITERS OXYGEN WATCHING TV THIS EVENING. SINUS RHYTHM ON THE TRANSFER WORKER. STABLE BLOOD PRESSURE AND VITALS. FAMILY AT BEDSIDE TO DAY. PEÑA TO DD WITH HORACE URINE PRESENT. FLEX SIG THIS AM WITH ENEMAS PRIOR TO GOING TO GI LAB. NO ISSUES OR CONCERNS NOTED AT THIS TIME. WILL TRANSFER TO ROOM 201 AND REPORT GIVEN TO RN TO ASSUME CARE OF PT
--- NOTE | 2019-04-22 17:48 | NUR ---
TO UNIT BY WC FROM ICU, REPORT FROM DIXIE CHRISTINA. NO COMPLAINTS. SR PER TELE. O2 AT 2L PER NC. SITTING UP AT SIDE OF THE BED FOR DINNER. VSS. WILL CONTINUE TO MONITOR.
[2019-04-23 04:12] VITALS: BP 151/56
[2019-04-23 05:10] LABS: HEMATOCRIT 31.6 % (37.0-47.0); HEMOGLOBIN 10.4 gm/dL (12.0-15.0); MCHC 32.9 g/dL (28.0-37.0); MCV 82.2 fL (80.0-100.0); RBC 3.85 mil/uL (4.20-5.00); RDW 15.9 % (10.5-14.5); WBC 7.2 thou/uL (4.0-11.0)
--- NOTE | 2019-04-23 05:18 | NUR ---
ASSUMED PATIENT CARE AT 1900. REVIEWED LABS, MEDS, ORDERS, AND CARE PLAN. PATIENT IS AAOX4 AND NOTED TO BE ON 2 L NC. PATIENT RESTED WELL THROUGHOUT THE NIGHT AND NO ACUTE EVENTS OCCURRED DURING THIS SHIFT. HOURLY ROUNDING AND ASSESSMENTS COMPLETED. PATIENT PROGRESSING TOWARD GOAL.
[2019-04-23 05:27] LABS: CALCIUM 8.2 mg/dL (8.5-10.1); CREATININE 0.6 mg/dL (0.6-1.0); POTASSIUM 3.8 mmol/L (3.5-5.1)
[2019-04-23 07:07] VITALS: BP 151/40
--- NOTE | 2019-04-23 09:36 | NUR ---
ASSUMED CARE OF PT APPROX 0715, A&0X4, IS NOT IMPULSIVE, AMB AT HOME INDEPENDENTLY, SBA HERE FOR SAFETY REASONS. BED ALARM ENGAGED NONETHELESS. SEE INTERVENTION FOR ASSESSMENT, ON 2L HERE, SATS AT 93%, ENCOURAGED HER WITH THE DEEP BREATHING, SLOW EXHALE AND WILL CONTINUE TO MONITOR. ENCOURAGED HER TO USE CALL LIGHT FOR ANY NEEDS. NSR PVC 70S THIS A.M.
[2019-04-23 11:36] VITALS: BP 171/50
[2019-04-23 16:10] VITALS: BP 171/61
--- NOTE | 2019-04-23 18:21 | NUR ---
PT AMBULATED IN HALLS FOR ABOUT TEN MINUTES, NO NEED FOR 02, NORVASC ORDERED FOR HTN LATE AFTERNOON. PT IN GOOD SPIRITS
[2019-04-23 19:30] VITALS: BP 141/63
--- NOTE | 2019-04-24 03:43 | NUR ---
ASSESSMENTS CHARTED. PATIENT RESTING DURING SHIFT. WAITING FOR BIOPSY RESULTS FROM FLEX SIG. SINUS RHYTHM DURING SHIFT.
[2019-04-24 04:06] VITALS: BP 166/58
[2019-04-24 05:18] LABS: CALCIUM 8.5 mg/dL (8.5-10.1); CREATININE 0.6 mg/dL (0.6-1.0); MAGNESIUM 1.5 mg/dL (1.8-2.4); POTASSIUM 3.3 mmol/L (3.5-5.1)
[2019-04-24 07:16] VITALS: BP 150/50
[2019-04-24 17:17] VITALS: BP 155/60
--- NOTE | 2019-04-24 17:39 | NUR ---
ASSUMED CARE OF PT AT SHIFT CHANGE. ASSESSMENTS CHARTED. MEDS GIVEN PER MAR. PT ALERT AND ORIENTED, VSS, DENIES PAIN, O2 SATS WNL ON 2L, PT WEENED TO RA PER DR ORDERS, TOLERATING WELL, PT NOW ON RA. NO S/SX OF CARD OR RESP DISTRESS NOTED, DENIES SOB. PEÑA REMOVED PER PHYSICIAN ORDERS, PT UP SBA AND WALKED AROUND UNIT TOLERATING WELL. APPETITE FAIR, DENIES CONCERNS AT THIS TIME. PT HOPEFUL FOR DC TOMORROW. WILL CONT TO MONITOR AND FOLLOW POC.
[2019-04-24 19:15] VITALS: BP 158/53; BP 184/49
[2019-04-25 04:15] VITALS: BP 153/54
[2019-04-25 06:43] LABS: CALCIUM 8.8 mg/dL (8.5-10.1); CREATININE 0.7 mg/dL (0.6-1.0); MAGNESIUM 1.9 mg/dL (1.8-2.4)
--- NOTE | 2019-04-25 08:45 | NUR ---
ASSESSMENTS CHARTED. PATIENT UP TO BATHROOM ON HER OWN WITH STAFF STANDING BY. PATIENT HAD BOWEL MOVEMENT DURING SHIFT, BUT NO HAT WAS IN THE TOLIET FOR A LAB SAMPLE. HAT CURRENTLY IN PLACE. PATIENT IS PLANNING TO GO HOME TODAY,
--- NOTE | 2019-04-25 12:10 | NUR ---
SW reviewed chart and spoke with nursing. Pt was transferred to CCU from ICU and is progressing towards goals for discharge. Plan is for pt to dc home when medically stable. No SW needs identified at this time, but is available to assist should needs arise.
[2019-04-25] MEDS ORDERED: ELIQUIS2.5 MG PO (12:53)
[2019-04-25] MEDS ORDERED: AMLODIPINE BESY10 MG PO (12:54)
[2019-04-25] MEDS ORDERED: METOPROLOL SUCC25 M1 PO (12:54)
[2019-04-25 13:42] VITALS: BP 153/54
--- NOTE | 2019-04-25 16:01 | NUR ---
assessment as charted - meds as per dec - no co's of pain or nausea. jennifer diet and fluids. up ad timi in room - seen by [hys therapy and released from [facility] and was staeady to be up. pt home this afternoon - picc line and monitor removed - instrcution re home meds/ care and follow up given to patient stated understanding of instruction given. left uniot via wheelchair - home vie pvt vehicle accompanied by son. pt to cotton picker scripts on the way out at pharmacy. no co's at time of d.c.
--- NOTE | 2019-04-26 09:52 | D ---
[facility] [place] [address] [address] [place] [address] DISCHARGE SUMMARY Name: NEIDA TYSON Room #: 201-P [facility] IN M.R.#: [id number] Admission: 04/20/19 ������������������ Attend Phys: Blaine Long MD Discharge: 04/25/19 ������������������ Date of : 34 Report #: [id number] THIS REPORT FOR: //name// CC: Chevy Long FINAL DIAGNOSES: 1. Hypotensive episode. 2. Bradycardia. 3. Syncope. 4. Atrial fibrillation. 5. Hypertension. 6. Anemia of chronic disease. 7. Pulmonary edema. HOSPITAL COURSE: The patient was admitted to ICU through ER with hypotensive, bradycardic episode. Initial impression was that this was medication related to a new dose of verapamil for AFib and her clonidine. She was treated with IV fluid resuscitation and pressors for a brief period. Overnight, heart rate and blood pressure stabilized. She received about 4 liters of fluid and developed pulmonary edema. She received additional doses of IV Lasix during the course of her stay for this and showed improvement. She was weaned off oxygen 24 hours prior to discharge approximately. Multiple consultants saw her and through workup and those related notes, sepsis, colitis and intra-abdominal hemorrhage were all ruled out. She had no other interval complication. PHYSICAL EXAMINATION: GENERAL: On the day of discharge, she was awake and alert. VITAL SIGNS: Stable. Heart rate was in the 60s, blood pressure was 130/60, O2 sat 92% on room air. LUNGS: Clear. HEART: Regular. ABDOMEN: Soft, normoactive bowel sounds. EXTREMITIES: No edema. DISPOSITION: She is going to be discharged to home with diet and activity as tolerated. Follow up with Dr. Davis at the end of the month. She will follow up with [facility] on 05/06/2019. DISCHARGE MEDICATIONS: Eliquis 2.5 mg a day, metoprolol XL 25 mg half tab daily, amlodipine 10 mg daily, aspirin 81 mg daily, gabapentin 100 mg at [address] [address] DISCHARGE SUMMARY Name: MARBELLANEIDA J Room #: 201-P [facility].#: [id number] Admission: 04/20/19 ������������������ Attend Phys: Blaine Long MD Discharge: 04/25/19 ������������������ Date of : 34 Report #: [id number] bedtime, Tylenol as needed, multivitamin daily, magnesium 400 mg daily. She is instructed to discontinue verapamil, clonidine, Plavix. ��������������������������������������������� <ELECTRONICALLY SIGNED> ���������������������������������������� By: Blaine Long MD ��������������������������������������������� 04/26/19 0952 1300 1354 Blaine Long MD /nt
--- NOTE | 2019-04-26 11:06 | PATH ---
[facility] [address] [address] PATHOLOGY RPT PROCEDURE Name: DREWNEIDA RIVERA Room #: 201-P DIS IN M.R.#: [id number] ������������������ Admission: 04/20/19 ������������������ Date of : 34 Discharge: 04/25/19 Report #: [id number] Path Case #: [id number] [facility] Accession Number: [id number] . 01 Material submitted: . PART A: colon - BX POLYP AT TRANSVERSE COLON. Modifiers: transverse PART B: colon - RANDOM COLON BX R/O COLITIS PART C: rectum - POLYP AT RECTUM . 01 Clinical history: . Colon polyp, rectal polyp, colitis. . 02 Diagnosis: A. Polyp, transverse colon, endoscopic biopsy: - Tubular adenoma arising in a background of serrated polyp. - Negative for high grade dysplasia. . B. Large intestinal mucosa, random colon rule out colitis, endoscopic biopsy: - Mild acute colitis. - Negative for microscopic colitis. - Negative for dysplasia or malignancy. . C. Polyp, rectal polyp, endoscopic biopsy: - Hyperplastic polyp. - Negative for dysplasia. LB/04/25/2019 . 02 Comment: Sections of the colonic mucosa designated "random colon" show focal cryptitis, and a moderately cellular lamina propria composed predominantly of lymphocytes and plasma cells and occasional eosinophils. Surface ulceration is not present. There are no crypt abscesses, granulomas or viral inclusions. The process affects all the fragments with a similar intensity. Given the description, the differential diagnosis includes mild non-specific acute colitis, acute self limited episode of colitis, early infectious-type of colitis, early inflammatory bowel disease, focal acute diverticulitis, as well as medication induced colitis. Please correlate clinically and follow-up as indicated. (IUV/db; 04/25/2019) . 02 Electronically signed: . Wanda Brown MD, Pathologist NPI- [id number] . 01 Gross description: . A. Received in formalin labeled "Neida Monterroso, biopsy polyp at [address] [address] PATHOLOGY RPT PROCEDURE Name: NEIDA MONTERROSO Room #: 201-P DIS IN M.R.#: [id number] ������������������ Admission: 04/20/19 ������������������ Date of : 34 Discharge: 04/25/19 Report #: [id number] Path Case #: [id number] transverse colon" is a 1.6 x 0.5 x 0.1 cm aggregate of rogers-brown mucosa fragments. The specimen is submitted in A1. . B. Received in formalin labeled "Neida Monterroso, random colon BX rule out colitis" is a 0.5 x 0.4 x 0.1 cm aggregate of rogers-brown mucosa fragments. The specimen is submitted in B1. . C. Received in formalin labeled "Neida Monterroso, polyp at rectum" is a 0.6 x 0.4 x 0.3 cm fragment of rogers-brown nodular mucosa. The specimen is submitted in C1. ([facility]; 04/24/2019) SYC/SYC . 02 Pathologist provided ICD-10: D12.3, K52.9, K62.1 . 02 CPT . 408633, 174773, 564612 Specimen Comment: A courtesy copy of this report has been sent to Specimen Comment: [phone], , . Specimen Comment: Report sent to ,DR CLEVELAND / DR JUAREZ Performed at: [address] [facility], [place] [id number] MD Bernardo Meadows MD Phone: [phone] Performed at: [address] [id number] MD Wanda Brown MD Phone: [phone]
--- NOTE | 2019-04-27 10:38 | P ---
[facility] [place] [address] [address] [place] [address] PROCEDURE REPORT Name: NEIDA TYSON Room #: 201-P [facility] IN M.R.#: [id number] Admission: 04/20/19 ������������������ Attend Phys: Blaine Long MD Discharge: 04/25/19 ������������������ Date of : 34 Report #: [id number] THIS REPORT FOR: //name// CC: Chevy Long MD DATE OF SERVICE: 04/22/2019 PROCEDURE PERFORMED: Flexible sigmoidoscopy with biopsies. HISTORY OF PRESENT ILLNESS: The patient is an 83-year-old female who was admitted with hypotension, diarrhea, and bradycardia. CT scan of the abdomen and pelvis showed a large amount of stool in the cecum, also possible colitis. The patient denies any rectal bleeding, denies any abdominal pain. Her diarrhea has actually resolved. Plan is for flexible sigmoidoscopy. DESCRIPTION OF PROCEDURE: The risks and benefits of the procedure were explained to the patient, those risks including but not limited to bleeding, perforation and the risk of sedation. She understood these risks and gave informed consent. Sedation was given using propofol per anesthesia. Next, a digital rectal exam was initially performed, which was normal. Next, using a standard Olympus colonoscope, the scope was placed in the patient's anus and advanced under direct vision to the ascending colon. The prep was poor in the ascending colon, although I could see the ileocecal valve. The areas that were visualized in the ascending colon were normal. In the transverse colon, there was a 5 mm sessile polyp. This was removed with cold forceps, otherwise normal. The descending and sigmoid colon were normal. Random biopsies were obtained to rule out the possibility of microscopic colitis. There was no evidence of colitis throughout the exam today. In the rectum, there was a 6 mm sessile polyp. This was removed by snare cautery. On retroflexion, small nonbleeding internal hemorrhoids were noted. External hemorrhoids were also noted. The scope was then withdrawn and the procedure terminated. The patient tolerated the procedure well. IMPRESSION: 1. Two small colonic polyps. 2. No evidence of colitis. 3. Small internal hemorrhoids and medium-sized external hemorrhoids, nonbleeding. RECOMMENDATIONS: 1. Await biopsy results. 2. Advance diet. [address] [address] PROCEDURE REPORT Name: MARBELLANEIDA J Room #: 201-P DIS IN .R.#: [id number] Admission: 04/20/19 ������������������ Attend Phys: Blaine Long MD Discharge: 04/25/19 ������������������ Date of : 34 Report #: [id number] Thank you for allowing me to participate in her care. ��������������������������������������������� <ELECTRONICALLY SIGNED> ���������������������������������������� By: Buzz Oakes MD ��������������������������������������������� 04/27/19 1038 1351 38 Buzz Oakes MD /nt
--- NOTE | 2019-04-27 14:01 | HC ---
[facility] [place] [address] [place] [address] CONSULTATION Name: NEIDA TYSON Room #: 201-P [facility] IN M.R.#: [id number] Admission: 04/20/19 ������������������ Attend Phys: Blaine Long MD Discharge: 04/25/19 ������������������ Date of : 34 Report #: [id number] THIS REPORT FOR: //name// CC: Chevy Long DATE OF SERVICE: 04/21/2019 REASON FOR CONSULTATION: I was asked to evaluate concerning possible colitis and sepsis. HISTORY OF PRESENT ILLNESS: The patient is an 83-year-old, underlying history of peripheral vascular disease, hypertension who was diagnosed with atrial fibrillation last week. She was treated with anticoagulation and placed on verapamil. Initially did well on this program. She did state that she doubled the dose of Eliquis yesterday, took all of her medications in the morning and within 2 hours, she developed lightheadedness with some nausea, mild upset stomach and one episode of diarrhea with bowel incontinence. She called 911, was found to be bradycardic, hypotensive and brought into the Emergency Room. She was fluid resuscitated. Placed in Intensive Care Unit. Did receive low dose vasopressors for a short period of time. She has had no cough or sputum production. No chest pain or palpitations. The nausea has resolved. No further stools. No dysuria or frequency. No blood in her urine or stool. No rashes or decubiti. No palpable adenopathy. No arthritis symptoms. No seizure symptoms or unilateral weakness. REVIEW OF SYSTEMS: A 10-point review of systems was negative other than what has been described above. ALLERGIES: None. MEDICATIONS: As noted on her MAR, now on enteral vancomycin and meropenem. PAST MEDICAL HISTORY: Hypertension, peripheral vascular disease, mesenteric and celiac stents, carotid endarterectomy, atrial fibrillation. FAMILY HISTORY: Noncontributory. SOCIAL HISTORY: Smoker of cigarettes. No significant alcohol intake. PHYSICAL EXAMINATION: GENERAL: She was alert and cooperative, sitting up in a chair. VITAL SIGNS: Afebrile, blood pressure now is stable. Pulse is 76, respirations 25, blood pressure 166/53, pulse ox of 92% on 8 liters of oxygen. When she presented, she was on no oxygen. [address] [address] CONSULTATION Name: NEIDA TYSON Room #: 201-P [facility] IN .R.#: [id number] Admission: 04/20/19 ������������������ Attend Phys: Blaien Long MD Discharge: 04/25/19 ������������������ Date of : 34 Report #: [id number] SKIN: Without rash or decubitus. No peripheral edema. No palpable adenopathy. HEENT: Eyes unremarkable with no scleral icterus or conjunctivitis. Mouth without mucositis. NECK: Supple. LUNGS: Decreased breath sounds in the bases posteriorly. HEART: Regular without appreciable murmur, gallop or rub. ABDOMEN: Soft, nontender, no hepatosplenomegaly or mass. EXTREMITIES: Without clubbing or cyanosis. NEUROLOGIC: Cranial nerves intact. Strength in upper and lower extremities is normal. Mood normal. BACK: Nontender. No CVA tenderness. GENITORECTAL: Not performed. LABORATORY STUDIES: Sodium 133, potassium 4.3, bicarbonate 23 and creatinine 0.9. AST 67, ALT 56, alkaline phosphatase 80, bilirubin 0.3, lactate was 2. BNP 5183. Hemoglobin 10, platelet count 210,000, white count 9000 with 81% segs. TSH 5. Urinalysis unremarkable. Blood cultures were negative to date. CT scan showed small bilateral effusions with some atelectasis. Diffuse colonic thickening consistent with edema. Small amount of peritoneal fluid. Compression fractures, L1 through L4, anasarca throughout the abdomen. IMPRESSION: An 83-year-old with: 1. Acute change in condition after taking multiple medications including verapamil and her anticoagulation medications in addition to clonidine and Neurontin. I am suspecting that this was more a hypotensive episode relative to her medication use. Seems to have improved following admission. Now, we are dealing with more fluid shifts. I did obtain a repeat chest x-ray, which showed evidence of bilateral infiltrates, most consistent with edema. Although she had one stool, I do not get the sense we are dealing with colitis or other infectious process. She has had no fever, her white count is normal and she was not toxic at this point. 2. Atrial fibrillation. 3. Peripheral vascular disease. 4. Tobacco use. RECOMMENDATION: We will continue monitoring in the Intensive Care Unit until fluid management has been addressed. I have discussed with attending and General Surgery. Diuresis will be started. We will discontinue her antibiotics. Follow serial chest x-rays. ��������������������������������������������� <ELECTRONICALLY SIGNED> ���������������������������������������� By: Edy Davis MD ��������������������������������������������� 04/27/19 1401 1041 1252 Edy Davis MD /nt
== END 2019-04-25 14:59 | disposition home or self-care (01) | DRG 315 ==
LOC: ER 10:50 → ICU 13:06 → EROBS 13:06 → ICU 13:50 → 2N 04-22 17:27 → ENTRNSPT 04-25 14:39 → EDTRNSPTSTS 04-25 14:53 → 2N 04-25 14:59
PROVIDERS: Emergency Medicine; Nurse Practitioner; Surgery; ADMIT Internal Medicine Geriatric Medicine
DX: I95.9 Hypotension, unspecified (principal); E87.1 Hypo-osmolality and hyponatremia; R18.8 Other ascites; E46 Unspecified protein-calorie malnutrition; J81.1 Chronic pulmonary edema; I48.91 Unspecified atrial fibrillation; R00.1 Bradycardia, unspecified; I10 Essential (primary) hypertension; I73.9 Peripheral vascular disease, unspecified; F17.210 Nicotine dependence, cigarettes, uncomplicated; D63.8 Anemia in other chronic diseases classified elsewhere; K63.5 Polyp of colon; K64.8 Other hemorrhoids; K64.4 Residual hemorrhoidal skin tags; R19.7 Diarrhea, unspecified; Z80.0 Family history of malignant neoplasm of digestive organs; Z90.89 Acquired absence of other organs; Z72.89 Other problems related to lifestyle; Z79.899 Other long term (current) drug therapy; Z79.82 Long term (current) use of aspirin; Z79.01 Long term (current) use of anticoagulants; Z68.22 Body mass index [BMI] 22.0-22.9, adult
CPT/HCPCS: 10078; 10081; 27000; 62110; 62900; 70005

== ENCOUNTER → 2019-12-15 | Outpatient (CLI) | payer OTHER ==
[~2019-12-15] MED LIST changes: +AMLODIPINE BESY10 MG PO; +CLONIDINE HCL0.1 MG PO; +ELIQUIS2.5 MG PO; +ELIQUIS5 MG PO; +METOPROLOL SUCC25 M1 PO; +VERAPAMIL HCL180 M2 PO
== END ==
LOC: SJCVC 11:39
DX: I48.0 Paroxysmal atrial fibrillation (principal); I73.9 Peripheral vascular disease, unspecified; K55.1 Chronic vascular disorders of intestine; I10 Essential (primary) hypertension; D68.59 Other primary thrombophilia; F17.200 Nicotine dependence, unspecified, uncomplicated; Z79.899 Other long term (current) drug therapy

== ENCOUNTER → 2019-12-27 | Outpatient (CLI) | payer OTHER | LOC: SJCVCIMAG 08:32 | DX: I65.23 Occlusion and stenosis of bilateral carotid arteries (principal); I48.91 Unspecified atrial fibrillation; I73.9 Peripheral vascular disease, unspecified; I10 Essential (primary) hypertension; K55.1 Chronic vascular disorders of intestine ==

== ENCOUNTER → 2020-03-20 | Outpatient (CLI) | payer OTHER | LOC: HYPER 09:02 | DX: I70.233 Atherosclerosis of native arteries of right leg with ulceration of ankle (principal); L97.312 Non-pressure chronic ulcer of right ankle with fat layer exposed; L84 Corns and callosities; I10 Essential (primary) hypertension; H26.9 Unspecified cataract; F17.200 Nicotine dependence, unspecified, uncomplicated; Z79.01 Long term (current) use of anticoagulants; Z95.828 Presence of other vascular implants and grafts ==

== ENCOUNTER → 2020-03-27 | Outpatient (CLI) | payer OTHER | LOC: HYPER 09:17 | DX: L97.312 Non-pressure chronic ulcer of right ankle with fat layer exposed (principal); L84 Corns and callosities; I73.9 Peripheral vascular disease, unspecified; I10 Essential (primary) hypertension; F17.200 Nicotine dependence, unspecified, uncomplicated; Z95.5 Presence of coronary angioplasty implant and graft ==

== ENCOUNTER → 2020-04-10 | Outpatient (CLI) | payer OTHER | LOC: HYPER 09:49 | PROVIDERS: ATTEND Emergency Medicine | DX: I70.233 Atherosclerosis of native arteries of right leg with ulceration of ankle (principal); L97.312 Non-pressure chronic ulcer of right ankle with fat layer exposed; L84 Corns and callosities; I10 Essential (primary) hypertension; H26.9 Unspecified cataract; F17.200 Nicotine dependence, unspecified, uncomplicated; Z79.01 Long term (current) use of anticoagulants; Z95.828 Presence of other vascular implants and grafts ==

== ENCOUNTER → 2020-04-17 | Outpatient (CLI) | payer OTHER | LOC: HYPER 10:13 | PROVIDERS: ATTEND Emergency Medicine | DX: I70.233 Atherosclerosis of native arteries of right leg with ulceration of ankle (principal); L97.312 Non-pressure chronic ulcer of right ankle with fat layer exposed; L84 Corns and callosities; I10 Essential (primary) hypertension; H26.9 Unspecified cataract; F17.200 Nicotine dependence, unspecified, uncomplicated; Z95.828 Presence of other vascular implants and grafts; Z79.01 Long term (current) use of anticoagulants ==

== ENCOUNTER → 2020-04-24 | Outpatient (CLI) | payer OTHER | LOC: HYPER 08:05 | PROVIDERS: ATTEND Emergency Medicine | DX: I70.233 Atherosclerosis of native arteries of right leg with ulceration of ankle (principal); L97.312 Non-pressure chronic ulcer of right ankle with fat layer exposed; H26.9 Unspecified cataract; I10 Essential (primary) hypertension; F17.200 Nicotine dependence, unspecified, uncomplicated; Z95.828 Presence of other vascular implants and grafts ==

== ENCOUNTER → 2020-05-01 | Outpatient (CLI) | payer OTHER | LOC: HYPER 06:32 | PROVIDERS: ATTEND Emergency Medicine | DX: I70.233 Atherosclerosis of native arteries of right leg with ulceration of ankle (principal); L97.312 Non-pressure chronic ulcer of right ankle with fat layer exposed; H26.9 Unspecified cataract; I10 Essential (primary) hypertension; F17.200 Nicotine dependence, unspecified, uncomplicated; Z95.828 Presence of other vascular implants and grafts ==

== ENCOUNTER → 2020-05-08 | Outpatient (CLI) | payer OTHER | LOC: HYPER 10:29 | PROVIDERS: ATTEND Emergency Medicine | DX: I70.233 Atherosclerosis of native arteries of right leg with ulceration of ankle (principal); L97.312 Non-pressure chronic ulcer of right ankle with fat layer exposed; L84 Corns and callosities; I10 Essential (primary) hypertension; H26.9 Unspecified cataract; F17.200 Nicotine dependence, unspecified, uncomplicated; Z95.828 Presence of other vascular implants and grafts; Z79.01 Long term (current) use of anticoagulants ==

== ENCOUNTER → 2020-05-15 | Outpatient (CLI) | payer OTHER | LOC: HYPER 10:58 | PROVIDERS: ATTEND Emergency Medicine | DX: I70.233 Atherosclerosis of native arteries of right leg with ulceration of ankle (principal); L97.312 Non-pressure chronic ulcer of right ankle with fat layer exposed; L84 Corns and callosities; I10 Essential (primary) hypertension; H26.9 Unspecified cataract; F17.200 Nicotine dependence, unspecified, uncomplicated; Z79.01 Long term (current) use of anticoagulants; Z95.828 Presence of other vascular implants and grafts ==

== ENCOUNTER → 2020-05-22 | Outpatient (CLI) | payer OTHER | LOC: HYPER 10:59 | PROVIDERS: ATTEND Emergency Medicine | DX: I70.233 Atherosclerosis of native arteries of right leg with ulceration of ankle (principal); L97.312 Non-pressure chronic ulcer of right ankle with fat layer exposed; H26.9 Unspecified cataract; I10 Essential (primary) hypertension; F17.200 Nicotine dependence, unspecified, uncomplicated; Z95.828 Presence of other vascular implants and grafts ==

== ENCOUNTER → 2020-05-30 | Outpatient (CLI) | payer OTHER | LOC: HYPER 10:28 | PROVIDERS: ATTEND Emergency Medicine | DX: I70.233 Atherosclerosis of native arteries of right leg with ulceration of ankle (principal); L97.312 Non-pressure chronic ulcer of right ankle with fat layer exposed; L84 Corns and callosities; I10 Essential (primary) hypertension; H26.9 Unspecified cataract; F17.200 Nicotine dependence, unspecified, uncomplicated ==

== ENCOUNTER → 2020-06-13 | Outpatient (CLI) | payer OTHER | LOC: HYPER 10:28 | PROVIDERS: ATTEND Emergency Medicine | DX: I70.233 Atherosclerosis of native arteries of right leg with ulceration of ankle (principal); L97.312 Non-pressure chronic ulcer of right ankle with fat layer exposed; H26.9 Unspecified cataract; I10 Essential (primary) hypertension; F17.200 Nicotine dependence, unspecified, uncomplicated; Z95.820 Peripheral vascular angioplasty status with implants and grafts ==

== ENCOUNTER → 2020-06-20 | Outpatient (CLI) | payer OTHER | LOC: HYPER 10:44 | PROVIDERS: ATTEND Emergency Medicine | DX: I70.233 Atherosclerosis of native arteries of right leg with ulceration of ankle (principal); L97.312 Non-pressure chronic ulcer of right ankle with fat layer exposed; I10 Essential (primary) hypertension; H26.9 Unspecified cataract; F17.200 Nicotine dependence, unspecified, uncomplicated; Z95.828 Presence of other vascular implants and grafts ==

== ENCOUNTER → 2020-07-04 | Outpatient (CLI) | payer OTHER ==
[~2020-07-04] MED LIST changes: +CLONIDINE HCL0.2 M2 PO; +MECLIZINE HCL25 MG PO
== END ==
LOC: HYPER 10:24
PROVIDERS: ATTEND Emergency Medicine
DX: I70.233 Atherosclerosis of native arteries of right leg with ulceration of ankle (principal); L97.312 Non-pressure chronic ulcer of right ankle with fat layer exposed; H26.9 Unspecified cataract; I10 Essential (primary) hypertension; F17.200 Nicotine dependence, unspecified, uncomplicated; Z95.828 Presence of other vascular implants and grafts

== ENCOUNTER 2020-07-05 08:56 | Emergency (ER) | payer OTHER ==
[~2020-07-05] VITALS: Ht 162.6 cm; Wt 51.3 kg
--- NOTE | ~2020-07-05 | EMS ---
[address] [address] EMS Patient Care Report Name: NEIDA TYSON Room #: PRE M.R.#: [id number] Admission: Attend Phys: Discharge: Date of : 34 Report #: [id number] THIS REPORT FOR: //name// Report Transmitted: 07/05/2020 08:37 EMS Care Summary [facility] MED-ACT Incident [id number] @ 07/05/2020 08:02 Incident Location [address] [place] [address] Patient NEIDA TYSON Female, 84 Years 1935 Patient Address [address] [place] [address] Patient History Hypertension (HTN), Patient Allergies No known allergies, Patient Medications Tylenol, Eliquis, Amlodipine, Clonidine, Magnesium Oxide, Gabapentin, Other, Chief Complaint "I feel so dizzy" Disposition Transported No Lights/[place] Dispatch Reason Sick Person Transported To [facility] Narrative upon our arrival located pt seated inside living area with FD at her side. pt explained she had been dizzy for the past week, increasingly so this morning. pt confirmed she had been NPO since the previous day at 17:30 in anticipation of an appointment today. pt relayed while preparing for the appointment she [facility] [address] [place] [address] EMS Patient Care Report Name: NEIDA TYSON Room #: PRE Ana#: [id number] Admission: Attend Phys: Discharge: Date of : 34 Report #: [id number] found herself to be increasingly dizzy, specifically while ambulatory within her home. pt denied any syncope in addition to RUSSELL, visual changes, CP, dyspnea, or general weakness. v/s obtained in addition to blood glucose. pt assisted in gathering her belongings and ambulated to EMS cot where she was secured in a POC with appropriate seatbelts applied. 412 Lead EKG obtained in EMS unit. pt expressed increased sensation of dizziness with movement of her head side to side. pt talkative during transport without further complaint. pt reported resolve of dizziness en route. report called to ED without incident. upon arrival report given to ED DIXIE Horne without incident. pt assisted to ED bed 8 with rails upx2 and staff at her side. Initial Vitals @08:23P: 60,SpO2: 99, @08:44P: 61,SpO2: 85, @08:22P: 65,R: 18,BP: 140/55,GCS: 15,SpO2: 97,Revised Trauma: 12, @08:34P: 61,R: 18,BP: 128/69,GCS: 15,SpO2: 96,Revised Trauma: 12, @08:14P: 60,R: 18,BP: 112/62,Pain: 0/10,GCS: 15,Temp: 95.8F,SpO2: 96,Revised Trauma: 12, @08:44P: 60,R: 18,BP: 116/44,GCS: 15,SpO2: 93,Revised Trauma: 12, @PTAP: 60,R: 18,BP: 110/60,GCS: 15,Glucose: 118,Revised Trauma: 12, Assessments @08:22MENTAL:Person Oriented,Place Oriented,Time Oriented,Event Oriented,SKIN:HEENT:Eyes: No Abnormalities,LUNG SOUNDS:ABDOMEN:PELVIS//GI:EXTREMITIES:Right Leg: Other,PULSE:Radial: 2+ Normal,NEURO: Impression Dizziness Procedures @08:2312-Lead ECGResponse: UnchangedSucceeded@08:4412-Lead ECG@08:15Surgical Mask on PatientResponse: Unchanged Timeline ENGINEERING VICE PRESIDENT,BP: 110/60 M,PULSE: 60,RR: 18 R,SPO2: Ox,ETCO2: ,B,PAIN: ,GCS: 15, 08:01,Call Received 08:01,Psap Call 08:02,Dispatched 08:04,En Route 08:10,On Scene 08:13,At Patient 08:14,BP: 112/62 M,PULSE: 60,RR: 18 R,SPO2: 96 Ox,ETCO2: ,BG: ,PAIN: 0,GCS: 15, 08:15,Surgical Mask on Patient,Response: Unchanged 08:22,BP: 140/55 M,PULSE: 65,RR: 18 R,SPO2: 97 Ox,ETCO2: ,BG: ,PAIN: ,GCS: 15, 08:23,12-Lead ECG,Response: UnchangedSucceeded, [facility] [address] [place] [address] EMS Patient Care Report Name: NEIDA TYSON Room #: PRE M.R.#: [id number] Admission: Attend Phys: Discharge: Date of : 34 Report #: [id number] 08:23,BP: / M,PULSE: 60,RR: R,SPO2: 99 Ox,ETCO2: ,BG: ,PAIN: ,GCS: , 08:27,Depart Scene 08:34,BP: 128/69 M,PULSE: 61,RR: 18 R,SPO2: 96 Ox,ETCO2: ,BG: ,PAIN: ,GCS: 15, 08:44,12-Lead ECG, 08:44,BP: / M,PULSE: 61,RR: R,SPO2: 85 Ox,ETCO2: ,BG: ,PAIN: ,GCS: , 08:44,BP: 116/44 M,PULSE: 60,RR: 18 R,SPO2: 93 Ox,ETCO2: ,BG: ,PAIN: ,GCS: 15, 08:52,At Destination 09:12,Call Closed Disclaimer v1.1 Copyright 2020 [employer] This EMS Care Summary contains data elements from the applicable legal record (which may be displayed differently). It is designed to provide pertinent information for the following purposes: continuity of care, clinical quality, and state data reporting. The complete legal record is available to ED staff and administrators of the receiving hospital in [employer]'s Patient Tracker. All data is provided "as is."
[~2020-07-05 08:56] MED LIST changes: -CLONIDINE HCL0.2 M2 PO; -MECLIZINE HCL25 MG PO
[2020-07-05 09:17] LABS: ABSOLUTE NEUTROPHILS 7.5 thou/uL (1.4-8.2); BASOPHILS 0.3 % (0.0-2.0); EOSINOPHILS 0.4 % (0.0-3.0); HEMOGLOBIN 14.1 gm/dL (12.0-15.0); MCH 32.1 pg (26.0-34.0); MCHC 34.4 g/dL (28.0-37.0); MCV 93.3 fL (80.0-100.0); MONOCYTES 6.4 % (1.0-8.0); PLATELET COUNT 264 thou/uL (150-400); POLYS 85.9 % (36.0-66.0); RBC 4.39 mil/uL (4.20-5.00); RDW 13.6 % (10.5-14.5); WBC 8.7 thou/uL (4.0-11.0)
[2020-07-05 09:24] LABS: ANION GAP 8 mmol/L (7-16); BUN 16 mg/dL (7-18); CALCIUM 9.4 mg/dL (8.5-10.1); CHLORIDE 99 mmol/L (98-107); CO2 29 mmol/L (21-32); CREATININE 1.2 mg/dL (0.6-1.0); GLUCOSE 94 mg/dL (74-106); POTASSIUM 4.4 mmol/L (3.5-5.1); SODIUM 136 mmol/L (136-145)
--- NOTE | 2020-07-05 09:28 | EKG ---
[facility] [place] [address] [place] [address] ELECTROCARDIOGRAM REPORT Name: NEIDA TYSON Room #: PRE [facility]..#: [id number] Admission: Attend Phys: Discharge: Date of : 34 Report #: [id number] THIS REPORT FOR: cc: Chevy Davis MD, Christopher B. MD Lundgren,Darrel Soriano MD [facility] ~ THIS REPORT FOR: //name// [facility] ED Test Date: 2020-07-05 Test Time: 09:02:09 Pat Name: NEIDA TYSON Department: Room: Gender: F Corporate Director Of Pharmacy: FATMATA AN : 1935 Requested By: Rob Timmons Order Number: [id number] MD: Darrel Ayoub Measurements Intervals [place] Rate: 64 P: 84 HI: 156 QRS: 27 QRSD: 95 T: 49 QT: 421 QTc: 435 Interpretive Statements Sinus rhythm Left atrial enlargement RSR' in V1 or V2, probably normal variant Compared to ECG 04/21/2019 09:38:43 RSR' in V1 or V2 now present Atrial premature complex(es) no longer present Electronically Signed On 07-05-2020 9:28:05 CDT by Darrel Ayoub [email or web address] <ELECTRONICALLY SIGNED> By: Darrel Ayoub MD, [facility] 07/05/20927 1 1 Darrel Ayoub MD, [facility] /EPI
[2020-07-05 09:34] LABS: SGOT 25 U/L (15-37); SGPT 26 U/L (30-65); TOTAL BILIRUBIN 0.6 mg/dL (0.2-1.0); TOTAL PROTEIN 8.4 g/dL (6.4-8.2); TROPONIN-I <0.06 ng/mL (<0.06)
[2020-07-05] MEDS ORDERED: CLONIDINE HCL0.2 M2 PO (10:41)
[2020-07-05 12:13] LABS: URINE BILIRUBIN NEGATIVE (Negative); URINE BLOOD NEGATIVE (Negative); URINE CLARITY CLEAR; URINE COLOR YELLOW; URINE GLUCOSE-RANDOM* NEGATIVE (Negative); URINE KETONES TRACE (Negative); URINE LEUKOCYTES-REFLEX TRACE (Negative); URINE NITRITE-REFLEX NEGATIVE (Negative); URINE PROTEIN (DIPSTICK) TRACE (Negative); URINE UROBILINOGEN 0.2 E.U./dl (0.2-1.0)
[2020-07-05] MEDS ORDERED: MECLIZINE HCL25 MG PO (14:25)
[2020-07-05 15:45] VITALS: BP 133/53
== END 2020-07-05 15:45 | disposition home or self-care (01) ==
LOC: ER 08:56
PROVIDERS: Emergency Medicine
DX: R42 Dizziness and giddiness (principal); I10 Essential (primary) hypertension; I48.91 Unspecified atrial fibrillation; I73.9 Peripheral vascular disease, unspecified; F17.210 Nicotine dependence, cigarettes, uncomplicated; Z98.51 Tubal ligation status; Z79.899 Other long term (current) drug therapy

== ENCOUNTER → 2020-07-18 | Outpatient (CLI) | payer OTHER ==
[~2020-07-18] MED LIST changes: +CLONIDINE HCL0.2 M2 PO; +MECLIZINE HCL25 MG PO
== END ==
LOC: HYPER 09:45
PROVIDERS: ATTEND Emergency Medicine
DX: I70.233 Atherosclerosis of native arteries of right leg with ulceration of ankle (principal); L97.312 Non-pressure chronic ulcer of right ankle with fat layer exposed; L97.212 Non-pressure chronic ulcer of right calf with fat layer exposed; I87.8 Other specified disorders of veins; I10 Essential (primary) hypertension; H26.9 Unspecified cataract; F17.200 Nicotine dependence, unspecified, uncomplicated; Z95.828 Presence of other vascular implants and grafts

== ENCOUNTER → 2020-07-18 | Outpatient (CLI) | payer OTHER | LOC: SJCVCIMAG 13:53 → SJCVC 13:53 | PROVIDERS: ATTEND Emergency Medicine | DX: I70.8 Atherosclerosis of other arteries (principal); L97.929 Non-pressure chronic ulcer of unspecified part of left lower leg with unspecified severity; K55.1 Chronic vascular disorders of intestine; D68.59 Other primary thrombophilia; R42 Dizziness and giddiness; I11.9 Hypertensive heart disease without heart failure; I73.9 Peripheral vascular disease, unspecified; I48.91 Unspecified atrial fibrillation; Z72.0 Tobacco use; Z79.899 Other long term (current) drug therapy ==

== ENCOUNTER → 2020-07-23 | Outpatient (CLI) | payer OTHER ==
[~2020-07-23] VITALS: Ht 162.6 cm; Wt 51.3 kg
[~2020-07-23] MED LIST changes: +AMOXICILLIN 50500 MG PO; +NORVASC5 M1 PO; +PLAVIX 75 MG TA75 MG PO
[2020-07-23 09:00] VITALS: BP 119/35
[2020-07-23 09:20] LABS: HEMATOCRIT 36.6 % (37.0-47.0); HEMOGLOBIN 12.5 gm/dL (12.0-15.0); MCH 31.5 pg (26.0-34.0); MCHC 34.2 g/dL (28.0-37.0); MCV 92.1 fL (80.0-100.0); RBC 3.97 mil/uL (4.20-5.00); RDW 13.1 % (10.5-14.5); WBC 8.2 thou/uL (4.0-11.0)
[2020-07-23 09:29] LABS: CALCIUM 9.3 mg/dL (8.5-10.1); CREATININE 1.2 mg/dL (0.6-1.0); POTASSIUM 4.3 mmol/L (3.5-5.1)
--- NOTE | 2020-07-23 18:03 | CATHLAB ---
[facility] [place] [address] [address] [place] [address] INVASIVE PROCEDURE REPORT Name: TRICIA TYSONBrooke Frias Room #: REG ANSHUL Escalante.#: [id number] Admission: 07/23/20 Attend Phys: Blaine Barr MD Discharge: Date of : 34 Report #: [id number] THIS REPORT FOR: cc: Chevy Davis MD, Christopher B. MD Mancuso, Gerald M. MD [facility] ~ APPROVED REPORT Study performed: 07/23/2020 13:02:28 Patient Details Patient Status: Out-Patient Room #: The patient is a 84 year-old female Event Personnel Javi Sanchez Pearler, Erick Peñaloza RN RN, Jacklyn Vizcarra RT(R) Procedures Performed Left Heart Cath w/or w/o Coronaries [id number] [facility] Hemostasis w/ Mynx 66280 Initial Mod Sed Same Phys/QHP Gr5y [id number] 11351 Mod Sed Same Phys/QHP Ea [id number] Indication Chest pain Procedure Narrative A 6f sheath was inserted into the LFA^. Coronary angiography was performed using coronary diagnostic catheters. The right coronary system was accessed and visualized with a JR4 catheter. The left coronary system was accessed and visualized with a JL4 catheter. The left ventricle was accessed and visualized with a STR PIG catheter. Left ventriculogram was performed in 30 degree projection. There was no hematoma. Intraoperative Conscious Sedation Sedation start time: 1326 Case end Time: 1350 Fentanyl mcg Versed 0.5 mg Fluoro Time: 19.80 minutes Dose: DAP 97603.07 cGycm2 787 mGy Contrast Type and Amount: Visipaque 116 ml [facility] [address] [place] [address] INVASIVE PROCEDURE REPORT Name: NEIDA TYSON Room #: REG [facility]#: [id number] Admission: 07/23/20 Attend Phys: Blaien Barr, Discharge: Date of : 34 Report #: [id number] Hemodynamics The aortic pressure is 178/53 mmHg with a mean of 85 mmHg. The left ventricular pressure is 173/10 mmHg with a mean of mmHg. The left ventricular end diastolic pressure is 29 mmHg. PCI Technique Lesion Percutaneous coronary intervention was performed on the Mid sup femoral. Conclusion #1. Normal left ventricular size and systolic function EF 60% #2 moderately heavily calcified left main with mild irregularity giving rise to LAD and circumflex #3 the LAD proximal calcification diffusely diseased distally smaller caliber attenuated vessel at the apex moderately large diagonal branch widely patent #4 circumflex OM nondominant mildly diseased #5 dominant right coronary with mild irregularities and heavily calcified proximal and mid vessel but not occlusive PDA LINDA well preserved Recommendations and plan: Continue aggressive risk factor modification. Peripheral intervention to follow per Dr. Barr. Will follow-up. <ELECTRONICALLY SIGNED> By: Javi Sanchez MD, [facility] 07/23/201802 02 02 Javi Sanchez MD, [facility] /INF
== END | disposition home or self-care (01) ==
LOC: CATH 07:48
PROVIDERS: ATTEND Nuclear Medicine Nuclear Cardiology
DX: R07.9 Chest pain, unspecified (principal); I25.10 Atherosclerotic heart disease of native coronary artery without angina pectoris; I70.238 Atherosclerosis of native arteries of right leg with ulceration of other part of lower leg; L97.919 Non-pressure chronic ulcer of unspecified part of right lower leg with unspecified severity; I70.1 Atherosclerosis of renal artery; I10 Essential (primary) hypertension; I48.91 Unspecified atrial fibrillation; F17.210 Nicotine dependence, cigarettes, uncomplicated; Z98.890 Other specified postprocedural states; Z79.899 Other long term (current) drug therapy; Z98.51 Tubal ligation status; Z79.01 Long term (current) use of anticoagulants; Z82.49 Family history of ischemic heart disease and other diseases of the circulatory system; Z87.19 Personal history of other diseases of the digestive system

== ENCOUNTER → 2020-07-26 | Outpatient (CLI) | payer OTHER | LOC: HYPER 09:47 | PROVIDERS: ATTEND Emergency Medicine | DX: I70.233 Atherosclerosis of native arteries of right leg with ulceration of ankle (principal); L97.312 Non-pressure chronic ulcer of right ankle with fat layer exposed; L97.211 Non-pressure chronic ulcer of right calf limited to breakdown of skin; H26.9 Unspecified cataract; I10 Essential (primary) hypertension; I87.8 Other specified disorders of veins; F17.200 Nicotine dependence, unspecified, uncomplicated; Z95.828 Presence of other vascular implants and grafts ==

== ENCOUNTER → 2020-08-02 | Outpatient (CLI) | payer OTHER | LOC: HYPER 09:30 | PROVIDERS: ATTEND Emergency Medicine | DX: I70.233 Atherosclerosis of native arteries of right leg with ulceration of ankle (principal); L97.312 Non-pressure chronic ulcer of right ankle with fat layer exposed; L97.211 Non-pressure chronic ulcer of right calf limited to breakdown of skin; H26.9 Unspecified cataract; I10 Essential (primary) hypertension; F17.200 Nicotine dependence, unspecified, uncomplicated; Z95.820 Peripheral vascular angioplasty status with implants and grafts ==

== ENCOUNTER → 2020-08-09 | Outpatient (CLI) | payer OTHER | LOC: HYPER 10:38 | PROVIDERS: ATTEND Emergency Medicine | DX: I70.232 Atherosclerosis of native arteries of right leg with ulceration of calf (principal); L97.212 Non-pressure chronic ulcer of right calf with fat layer exposed; I70.233 Atherosclerosis of native arteries of right leg with ulceration of ankle; L97.312 Non-pressure chronic ulcer of right ankle with fat layer exposed; I70.238 Atherosclerosis of native arteries of right leg with ulceration of other part of lower leg; L97.811 Non-pressure chronic ulcer of other part of right lower leg limited to breakdown of skin; L84 Corns and callosities; I10 Essential (primary) hypertension; H26.9 Unspecified cataract; Z95.828 Presence of other vascular implants and grafts; F17.200 Nicotine dependence, unspecified, uncomplicated; Z79.01 Long term (current) use of anticoagulants ==

== ENCOUNTER → 2020-08-16 | Outpatient (CLI) | payer OTHER | LOC: HYPER 10:18 | PROVIDERS: ATTEND Emergency Medicine | DX: I70.233 Atherosclerosis of native arteries of right leg with ulceration of ankle (principal); L97.312 Non-pressure chronic ulcer of right ankle with fat layer exposed; I70.232 Atherosclerosis of native arteries of right leg with ulceration of calf; L97.211 Non-pressure chronic ulcer of right calf limited to breakdown of skin; L84 Corns and callosities; I10 Essential (primary) hypertension; H26.9 Unspecified cataract; F17.200 Nicotine dependence, unspecified, uncomplicated; Z95.828 Presence of other vascular implants and grafts; Z79.01 Long term (current) use of anticoagulants ==

== ENCOUNTER → 2020-08-23 | Outpatient (CLI) | payer OTHER | LOC: HYPER 10:01 | PROVIDERS: ATTEND Emergency Medicine | DX: I70.233 Atherosclerosis of native arteries of right leg with ulceration of ankle (principal); L97.312 Non-pressure chronic ulcer of right ankle with fat layer exposed; L97.211 Non-pressure chronic ulcer of right calf limited to breakdown of skin; R21 Rash and other nonspecific skin eruption; R60.0 Localized edema; H26.9 Unspecified cataract; I10 Essential (primary) hypertension; F17.200 Nicotine dependence, unspecified, uncomplicated; Z95.828 Presence of other vascular implants and grafts ==

== ENCOUNTER → 2020-08-30 | Outpatient (CLI) | payer OTHER | LOC: HYPER 10:13 | PROVIDERS: ATTEND Emergency Medicine | DX: I70.233 Atherosclerosis of native arteries of right leg with ulceration of ankle (principal); L97.312 Non-pressure chronic ulcer of right ankle with fat layer exposed; L97.211 Non-pressure chronic ulcer of right calf limited to breakdown of skin; R21 Rash and other nonspecific skin eruption; R60.0 Localized edema; H26.9 Unspecified cataract; I10 Essential (primary) hypertension; F17.200 Nicotine dependence, unspecified, uncomplicated; Z95.828 Presence of other vascular implants and grafts ==

== ENCOUNTER → 2020-09-06 | Outpatient (CLI) | payer OTHER | LOC: HYPER 10:17 | PROVIDERS: ATTEND Emergency Medicine | DX: I70.233 Atherosclerosis of native arteries of right leg with ulceration of ankle (principal); L97.312 Non-pressure chronic ulcer of right ankle with fat layer exposed; I70.238 Atherosclerosis of native arteries of right leg with ulceration of other part of lower leg; L97.811 Non-pressure chronic ulcer of other part of right lower leg limited to breakdown of skin; L84 Corns and callosities; R21 Rash and other nonspecific skin eruption; R60.0 Localized edema; H26.9 Unspecified cataract; Z79.01 Long term (current) use of anticoagulants; Z95.828 Presence of other vascular implants and grafts ==

== ENCOUNTER → 2020-09-13 | Outpatient (CLI) | payer OTHER | LOC: HYPER 10:00 | PROVIDERS: ATTEND Emergency Medicine | DX: I70.233 Atherosclerosis of native arteries of right leg with ulceration of ankle (principal); L97.312 Non-pressure chronic ulcer of right ankle with fat layer exposed; I70.238 Atherosclerosis of native arteries of right leg with ulceration of other part of lower leg; L97.811 Non-pressure chronic ulcer of other part of right lower leg limited to breakdown of skin; L84 Corns and callosities; R21 Rash and other nonspecific skin eruption; R60.0 Localized edema; H26.9 Unspecified cataract; I10 Essential (primary) hypertension; F17.200 Nicotine dependence, unspecified, uncomplicated; Z79.01 Long term (current) use of anticoagulants; Z95.828 Presence of other vascular implants and grafts ==

== ENCOUNTER → 2020-10-04 | Outpatient (CLI) | payer OTHER | LOC: HYPER 09-27 15:16 | PROVIDERS: ATTEND Emergency Medicine | DX: I70.233 Atherosclerosis of native arteries of right leg with ulceration of ankle (principal); L97.312 Non-pressure chronic ulcer of right ankle with fat layer exposed; I70.238 Atherosclerosis of native arteries of right leg with ulceration of other part of lower leg; L97.811 Non-pressure chronic ulcer of other part of right lower leg limited to breakdown of skin; R60.0 Localized edema; L84 Corns and callosities; I10 Essential (primary) hypertension; H26.9 Unspecified cataract; Z79.01 Long term (current) use of anticoagulants; Z95.828 Presence of other vascular implants and grafts ==

== ENCOUNTER → 2020-10-11 | Outpatient (CLI) | payer OTHER | LOC: HYPER 10:54 | PROVIDERS: ATTEND Emergency Medicine | DX: I70.233 Atherosclerosis of native arteries of right leg with ulceration of ankle (principal); L97.312 Non-pressure chronic ulcer of right ankle with fat layer exposed; I70.238 Atherosclerosis of native arteries of right leg with ulceration of other part of lower leg; L97.811 Non-pressure chronic ulcer of other part of right lower leg limited to breakdown of skin; L84 Corns and callosities; R60.0 Localized edema; I10 Essential (primary) hypertension; H26.9 Unspecified cataract; Z79.01 Long term (current) use of anticoagulants; Z95.828 Presence of other vascular implants and grafts ==

== ENCOUNTER → 2020-10-30 | Outpatient (CLI) | payer OTHER | LOC: SJCVCIMAG 10-23 09:43 | PROVIDERS: ATTEND Internal Medicine Cardiovascular Disease | DX: I70.203 Unspecified atherosclerosis of native arteries of extremities, bilateral legs (principal); L97.929 Non-pressure chronic ulcer of unspecified part of left lower leg with unspecified severity; I25.10 Atherosclerotic heart disease of native coronary artery without angina pectoris; I48.91 Unspecified atrial fibrillation; I77.9 Disorder of arteries and arterioles, unspecified; I10 Essential (primary) hypertension; K55.1 Chronic vascular disorders of intestine; F17.200 Nicotine dependence, unspecified, uncomplicated; Z95.828 Presence of other vascular implants and grafts; Z79.899 Other long term (current) drug therapy ==

== ENCOUNTER → 2020-11-01 | Outpatient (CLI) | payer OTHER | LOC: HYPER 10:17 | PROVIDERS: ATTEND Emergency Medicine | DX: I70.233 Atherosclerosis of native arteries of right leg with ulceration of ankle (principal); L97.312 Non-pressure chronic ulcer of right ankle with fat layer exposed; I70.238 Atherosclerosis of native arteries of right leg with ulceration of other part of lower leg; L97.811 Non-pressure chronic ulcer of other part of right lower leg limited to breakdown of skin; R60.0 Localized edema; L84 Corns and callosities; I10 Essential (primary) hypertension; H26.9 Unspecified cataract; F17.200 Nicotine dependence, unspecified, uncomplicated; Z95.828 Presence of other vascular implants and grafts; Z79.01 Long term (current) use of anticoagulants ==

== ENCOUNTER → 2020-11-08 | Outpatient (CLI) | payer OTHER | LOC: MRI 14:11 | PROVIDERS: ATTEND Emergency Medicine | DX: G40.009 Localization-related (focal) (partial) idiopathic epilepsy and epileptic syndromes with seizures of localized onset, not intractable, without status epilepticus (principal) ==

== ENCOUNTER → 2020-11-08 | Outpatient (CLI) | payer OTHER | LOC: HYPER 09:50 | PROVIDERS: ATTEND Emergency Medicine | DX: I70.233 Atherosclerosis of native arteries of right leg with ulceration of ankle (principal); L97.312 Non-pressure chronic ulcer of right ankle with fat layer exposed; I70.238 Atherosclerosis of native arteries of right leg with ulceration of other part of lower leg; L97.811 Non-pressure chronic ulcer of other part of right lower leg limited to breakdown of skin; R60.0 Localized edema; I10 Essential (primary) hypertension; H26.9 Unspecified cataract; F17.200 Nicotine dependence, unspecified, uncomplicated; Z95.828 Presence of other vascular implants and grafts ==

== ENCOUNTER → 2020-11-15 | Outpatient (CLI) | payer OTHER | LOC: HYPER 10:59 | PROVIDERS: ATTEND Emergency Medicine | DX: I70.233 Atherosclerosis of native arteries of right leg with ulceration of ankle (principal); L97.312 Non-pressure chronic ulcer of right ankle with fat layer exposed; I70.238 Atherosclerosis of native arteries of right leg with ulceration of other part of lower leg; L97.811 Non-pressure chronic ulcer of other part of right lower leg limited to breakdown of skin; R60.0 Localized edema; I10 Essential (primary) hypertension; H26.9 Unspecified cataract; F17.200 Nicotine dependence, unspecified, uncomplicated; Z95.828 Presence of other vascular implants and grafts ==

== ENCOUNTER → 2020-11-22 | Outpatient (CLI) | payer OTHER | LOC: HYPER 14:09 | PROVIDERS: ATTEND Emergency Medicine | DX: I70.233 Atherosclerosis of native arteries of right leg with ulceration of ankle (principal); L97.312 Non-pressure chronic ulcer of right ankle with fat layer exposed; I70.238 Atherosclerosis of native arteries of right leg with ulceration of other part of lower leg; L97.811 Non-pressure chronic ulcer of other part of right lower leg limited to breakdown of skin; R60.0 Localized edema; I10 Essential (primary) hypertension; H26.9 Unspecified cataract; F17.200 Nicotine dependence, unspecified, uncomplicated; Z95.828 Presence of other vascular implants and grafts ==

== ENCOUNTER → 2020-11-29 | Outpatient (CLI) | payer OTHER | LOC: HYPER 11:39 | PROVIDERS: ATTEND Emergency Medicine | DX: I70.233 Atherosclerosis of native arteries of right leg with ulceration of ankle (principal); L97.312 Non-pressure chronic ulcer of right ankle with fat layer exposed; I70.238 Atherosclerosis of native arteries of right leg with ulceration of other part of lower leg; L97.811 Non-pressure chronic ulcer of other part of right lower leg limited to breakdown of skin; R60.0 Localized edema; I10 Essential (primary) hypertension; H26.9 Unspecified cataract; F17.200 Nicotine dependence, unspecified, uncomplicated; Z95.828 Presence of other vascular implants and grafts ==

== ENCOUNTER → 2020-12-06 | Outpatient (CLI) | payer OTHER | LOC: HYPER 09:41 | PROVIDERS: ATTEND Emergency Medicine | DX: I70.233 Atherosclerosis of native arteries of right leg with ulceration of ankle (principal); L97.312 Non-pressure chronic ulcer of right ankle with fat layer exposed; I70.238 Atherosclerosis of native arteries of right leg with ulceration of other part of lower leg; L97.811 Non-pressure chronic ulcer of other part of right lower leg limited to breakdown of skin; R60.0 Localized edema; I10 Essential (primary) hypertension; H26.9 Unspecified cataract; F17.200 Nicotine dependence, unspecified, uncomplicated; Z95.828 Presence of other vascular implants and grafts ==

== ENCOUNTER → 2020-12-13 | Outpatient (CLI) | payer OTHER | LOC: HYPER 09:45 | PROVIDERS: ATTEND Emergency Medicine | DX: I70.233 Atherosclerosis of native arteries of right leg with ulceration of ankle (principal); L97.312 Non-pressure chronic ulcer of right ankle with fat layer exposed; I70.238 Atherosclerosis of native arteries of right leg with ulceration of other part of lower leg; L97.811 Non-pressure chronic ulcer of other part of right lower leg limited to breakdown of skin; L84 Corns and callosities; R60.0 Localized edema; I10 Essential (primary) hypertension; H26.9 Unspecified cataract; F17.200 Nicotine dependence, unspecified, uncomplicated; Z95.828 Presence of other vascular implants and grafts ==

== ENCOUNTER → 2020-12-20 | Outpatient (CLI) | payer OTHER | LOC: HYPER 09:43 | PROVIDERS: ATTEND Emergency Medicine | DX: I70.233 Atherosclerosis of native arteries of right leg with ulceration of ankle (principal); L97.312 Non-pressure chronic ulcer of right ankle with fat layer exposed; L84 Corns and callosities; R60.0 Localized edema; I10 Essential (primary) hypertension; H26.9 Unspecified cataract; F17.200 Nicotine dependence, unspecified, uncomplicated; Z95.828 Presence of other vascular implants and grafts ==

== ENCOUNTER → 2020-12-27 | Outpatient (CLI) | payer OTHER | LOC: HYPER 13:00 | PROVIDERS: ATTEND Emergency Medicine | DX: I70.233 Atherosclerosis of native arteries of right leg with ulceration of ankle (principal); L97.312 Non-pressure chronic ulcer of right ankle with fat layer exposed; L84 Corns and callosities; R60.0 Localized edema; I10 Essential (primary) hypertension; H26.9 Unspecified cataract; F17.200 Nicotine dependence, unspecified, uncomplicated; Z95.828 Presence of other vascular implants and grafts ==

== ENCOUNTER → 2021-01-03 | Outpatient (CLI) | payer OTHER | LOC: HYPER 13:38 | PROVIDERS: ATTEND Emergency Medicine | DX: I70.233 Atherosclerosis of native arteries of right leg with ulceration of ankle (principal); L97.312 Non-pressure chronic ulcer of right ankle with fat layer exposed; R60.0 Localized edema; L84 Corns and callosities; I10 Essential (primary) hypertension; H26.9 Unspecified cataract; F17.200 Nicotine dependence, unspecified, uncomplicated; Z72.89 Other problems related to lifestyle; Z79.01 Long term (current) use of anticoagulants; Z79.899 Other long term (current) drug therapy; Z95.828 Presence of other vascular implants and grafts ==

== ENCOUNTER → 2021-01-10 | Outpatient (CLI) | payer OTHER | LOC: HYPER 12:22 | PROVIDERS: ATTEND Emergency Medicine | DX: I70.233 Atherosclerosis of native arteries of right leg with ulceration of ankle (principal); L97.312 Non-pressure chronic ulcer of right ankle with fat layer exposed; R60.0 Localized edema; L84 Corns and callosities; I10 Essential (primary) hypertension; H26.9 Unspecified cataract; F17.200 Nicotine dependence, unspecified, uncomplicated; Z72.89 Other problems related to lifestyle; Z79.01 Long term (current) use of anticoagulants; Z79.899 Other long term (current) drug therapy; Z85.828 Personal history of other malignant neoplasm of skin ==

== ENCOUNTER → 2021-01-24 | Outpatient (CLI) | payer OTHER | LOC: HYPER 08:59 | PROVIDERS: ATTEND Emergency Medicine | DX: I70.233 Atherosclerosis of native arteries of right leg with ulceration of ankle (principal); L97.312 Non-pressure chronic ulcer of right ankle with fat layer exposed; R60.0 Localized edema; L84 Corns and callosities; I10 Essential (primary) hypertension; H26.9 Unspecified cataract; F17.200 Nicotine dependence, unspecified, uncomplicated; Z72.89 Other problems related to lifestyle; Z79.01 Long term (current) use of anticoagulants; Z79.899 Other long term (current) drug therapy; Z85.828 Personal history of other malignant neoplasm of skin ==

== ENCOUNTER → 2021-01-29 | Outpatient (CLI) | payer OTHER | LOC: SJCVCIMAG 07:22 | PROVIDERS: ATTEND Internal Medicine Cardiovascular Disease | DX: I65.23 Occlusion and stenosis of bilateral carotid arteries (principal); I70.202 Unspecified atherosclerosis of native arteries of extremities, left leg; T82.856D Stenosis of peripheral vascular stent, subsequent encounter; K55.9 Vascular disorder of intestine, unspecified; I77.9 Disorder of arteries and arterioles, unspecified; I48.91 Unspecified atrial fibrillation; I25.10 Atherosclerotic heart disease of native coronary artery without angina pectoris; I10 Essential (primary) hypertension; F17.200 Nicotine dependence, unspecified, uncomplicated; Z95.828 Presence of other vascular implants and grafts; Z98.890 Other specified postprocedural states; Z79.899 Other long term (current) drug therapy; Y83.8 Other surgical procedures as the cause of abnormal reaction of the patient, or of later complication, without mention of misadventure at the time of the procedure ==

== ENCOUNTER → 2021-01-31 | Outpatient (CLI) | payer OTHER | LOC: HYPER 08:45 | PROVIDERS: ATTEND Emergency Medicine | DX: I70.233 Atherosclerosis of native arteries of right leg with ulceration of ankle (principal); L97.312 Non-pressure chronic ulcer of right ankle with fat layer exposed; R60.0 Localized edema; L84 Corns and callosities; I10 Essential (primary) hypertension; H26.9 Unspecified cataract; F17.200 Nicotine dependence, unspecified, uncomplicated; Z72.89 Other problems related to lifestyle; Z79.01 Long term (current) use of anticoagulants; Z85.828 Personal history of other malignant neoplasm of skin ==

== ENCOUNTER → 2021-02-07 | Outpatient (CLI) | payer OTHER | LOC: HYPER 14:43 | PROVIDERS: ATTEND Emergency Medicine | DX: I70.233 Atherosclerosis of native arteries of right leg with ulceration of ankle (principal); L97.312 Non-pressure chronic ulcer of right ankle with fat layer exposed; R60.0 Localized edema; L84 Corns and callosities; I10 Essential (primary) hypertension; H26.9 Unspecified cataract; F17.200 Nicotine dependence, unspecified, uncomplicated; Z79.01 Long term (current) use of anticoagulants; Z79.899 Other long term (current) drug therapy; Z95.828 Presence of other vascular implants and grafts ==

== ENCOUNTER → 2021-02-14 | Outpatient (CLI) | payer OTHER | LOC: HYPER 07:41 | PROVIDERS: ATTEND Emergency Medicine | DX: I70.233 Atherosclerosis of native arteries of right leg with ulceration of ankle (principal); L97.312 Non-pressure chronic ulcer of right ankle with fat layer exposed; R60.0 Localized edema; L84 Corns and callosities; I10 Essential (primary) hypertension; H26.9 Unspecified cataract; F17.200 Nicotine dependence, unspecified, uncomplicated; Z79.01 Long term (current) use of anticoagulants; Z95.828 Presence of other vascular implants and grafts ==

== ENCOUNTER 2021-02-21 09:29 | Inpatient (IN) | payer OTHER ==
[~2021-02-21] VITALS: Ht 162.6 cm; Wt 54.5 kg
--- NOTE | ~2021-02-21 | EMS ---
[address] [address] EMS Patient Care Report Name: NEIDA TYSON Room #: REG RICARDO Perez#: [id number] Admission: 02/21/21 Attend Phys: Discharge: Date of : 34 Report #: [id number] THIS REPORT FOR: //name// Report Transmitted: 02/21/2021 11:15 EMS Care Summary [facility] MED-ACT Incident [id number] @ 02/21/2021 08:36 Incident Location [address] [place] [address] Patient NEIDA TYSON Female, 85 Years 1935 Patient Address [address] [place] [address] Patient History Hypertension (HTN),Atrial Fibrillation, Patient Allergies Verapamil, Patient Medications Diltiazem, Eliquis, Clopidogrel, Gabapentin, Clonidine, Amlodipine, Chief Complaint Dizziness Disposition Transported No Lights/[place] Dispatch Reason Allergic Reaction/[place] Transported To [facility] Narrative [id number] dispatched to above address for Allergic reaction, Code 1 response. upon arrival we found and 85 year old female sitting in a chair. She stated she was prescribed Diltiazem yesterday by her fiber designer for chronic A-fib. She took the prescribed dose last night and this morning. After taking it this morning [facility] [address] [place] [address] EMS Patient Care Report Name: NEIDA TYSON [id number] Admission: 02/21/21 Attend Phys: Discharge: Date of : 34 Report #: [id number] she began feeling lightheaded and weak. Pt stated she had a similar reaction 2 years ago to Verapamil. Assessment and treatment as noted. Pt stood and sat on stretcher, loaded in ambulance. Vitals and 4-lead monitored throughout transport. Normal saline fluid bolus given for hypotension. Pt insisted on transport to [facility] which was about a [address] Pt was made aware of the risks of not going to a closer facility due to her vital signs. She remained stable throughout transport. Pt transported to [facility] per her request. She arrived alert with stable vitals. Care transferred to REVENUE CYCLE ADMINISTRATOR in room 8. Initial Vitals @09:17P: 45,R: 16,BP: 93/52,SpO2: 98, @09:08P: 49,R: 16,BP: 79/38,SpO2: 97, @08:52P: 47,R: 16,SpO2: 91,PA Suspected: false @08:59P: 46,R: 16,BP: 82/47,SpO2: 92, @08:49R: 16,BP: 59/34,SpO2: 92, @08:48R: 16,SpO2: 93,PA Suspected: false @08:47P: 46,R: 16,BP: 55/32,Pain: 0/10,GCS: 15,Temp: 97.2F,Glucose: 146,SpO2: 92,Revised Trauma: 10, @09:25P: 43,R: 16,BP: 80/45,Pain: 0/10,GCS: 15,SpO2: 96,Revised Trauma: 11, Assessments @08:46MENTAL:Person Oriented,Time Oriented,Event Oriented,Place Oriented,SKIN:Pale,HEENT:Neck/Airway: No Abnormalities,LUNG SOUNDS:General: Nausea,ABDOMEN:General: Nausea,PELVIS//GI:No Abnormalities,EXTREMITIES:Left Arm: No Abnormalities,Right Arm: No Abnormalities,Left Leg: No Abnormalities,Right Leg: No Abnormalities,PULSE:NEURO: Impression Hypotension Procedures @09:00Surgical Mask on PatientResponse: Unchanged@09:04General Comments@08:5212-Lead ECGResponse: UnchangedSucceeded@09:01Normal Saline (.9% NaCl) 400cc (18 ga) Site: Antecubital-RightResponse: ImprovedSucceeded@09:04Oxygen FlowRate: 2 Device: Nasal Cannula (NC) Response: ImprovedSucceeded Timeline 08:35,Call Received 08:35,Psap Call 08:36,Dispatched 08:37,En Route [address] [address] EMS Patient Care Report Name: NEIDA TYSON Room #: REG Ana#: [id number] Admission: 02/21/21 Attend Phys: Discharge: Date of : 34 Report #: [id number] 08:43,On Scene 08:45,At Patient 08:47,BP: 55/32 M,PULSE: 46,RR: 16 R,SPO2: 92 Ox,ETCO2: ,B,PAIN: 0,GCS: 15, 08:48,BP: / M,PULSE: ,RR: 16 R,SPO2: 93 Ox,ETCO2: ,BG: ,PAIN: ,GCS: , 08:49,BP: 59/34 M,PULSE: ,RR: 16 R,SPO2: 92 Ox,ETCO2: ,BG: ,PAIN: ,GCS: , 08:52,12-Lead ECG,Response: UnchangedSucceeded, 08:52,BP: / M,PULSE: 47,RR: 16 R,SPO2: 91 Ox,ETCO2: ,BG: ,PAIN: ,GCS: , 08:59,BP: 82/47 M,PULSE: 46,RR: 16 R,SPO2: 92 Ox,ETCO2: ,BG: ,PAIN: ,GCS: , 09:00,Surgical Mask on Patient,Response: Unchanged 09:01,Normal Saline (.9% NaCl) 400cc 18 ga Site: Antecubital-Right,Response: ImprovedSucceeded, 09:03,Depart Scene 09:04,Oxygen FlowRate: 2 Device: Nasal Cannula (NC) Response: ImprovedSucceeded, 09:04,General Comments, 09:08,BP: 79/38 M,PULSE: 49,RR: 16 R,SPO2: 97 Ox,ETCO2: ,BG: ,PAIN: ,GCS: , 09:17,BP: 93/52 M,PULSE: 45,RR: 16 R,SPO2: 98 Ox,ETCO2: ,BG: ,PAIN: ,GCS: , 09:25,BP: 80/45 M,PULSE: 43,RR: 16 R,SPO2: 96 Ox,ETCO2: ,BG: ,PAIN: 0,GCS: 15, 09:25,At Destination 09:45,Call Closed Disclaimer v1.1 Copyright 2020 [employer] This EMS Care Summary contains data elements from the applicable legal record (which may be displayed differently). It is designed to provide pertinent information for the following purposes: continuity of care, clinical quality, and state data reporting. The complete legal record is available to ED staff and administrators of the receiving hospital in [employer]'s Patient Tracker. All data is provided "as is."
[2021-02-21 09:30] VITALS: BP 92/38
[2021-02-21 10:01] LABS: BASOPHILS 0.7 % (0.0-2.0); EOSINOPHILS 0.4 % (0.0-3.0); HEMATOCRIT 29.8 % (37.0-47.0); HEMOGLOBIN 9.6 gm/dL (12.0-15.0); LYMPHOCYTES 11.3 % (24.0-44.0); MCH 27.5 pg (26.0-34.0); MCHC 32.1 g/dL (28.0-37.0); MCV 85.6 fL (80.0-100.0); MONOCYTES 13.3 % (1.0-8.0); PLATELET COUNT 288 thou/uL (150-400); POLYS 74.3 % (36.0-66.0); RBC 3.48 mil/uL (4.20-5.00); RDW 14.7 % (10.5-14.5)
[2021-02-21 10:07] LABS: ANION GAP 11 mmol/L (7-16); BUN 20 mg/dL (7-18); CHLORIDE 98 mmol/L (98-107); CO2 22 mmol/L (21-32); CREATININE 1.1 mg/dL (0.6-1.0); GLUCOSE 153 mg/dL (74-106); POTASSIUM 4.4 mmol/L (3.5-5.1); SODIUM 131 mmol/L (136-145)
[2021-02-21 10:14] LABS: ALBUMIN 2.8 g/dL (3.4-5.0); SGOT 37 U/L (15-37); SGPT 36 U/L (14-59); TOTAL BILIRUBIN 0.4 mg/dL (0.2-1.0); TOTAL PROTEIN 6.2 g/dL (6.4-8.2); TROPONIN-I <0.06 ng/mL (<0.06)
[2021-02-21 10:18] LABS: APTT 27.2 Seconds (24.5-32.8); INR 1.09; PROTIME 11.8 Seconds (10.5-12.1)
--- NOTE | 2021-02-21 13:03 | EKG ---
[place] [address] [facility] [place] [address] ELECTROCARDIOGRAM REPORT Name: DREWMIGUELSELNEANEIDA Rodriguez Room #: REG [facility]#: [id number] Admission: 02/21/21 Attend Phys: Discharge: Date of : 34 Report #: [id number] [facility] ED Test Date: 2021-02-21 Test Time: 09:35:39 Pat Name: NEIDA TYSON Department: Room: Gender: F [employer] Senior Project Manager: DIXIE BIRD : 1935 Requested By: Blaine Garcia Order Number: [id number] MD: Agustín Jacobs Measurements Intervals [place] Rate: 49 P: MT: QRS: 41 QRSD: 98 T: 54 QT: 520 QTc: 470 Interpretive Statements Atrial fibrillation Borderline low voltage, extremity leads Compared to ECG 07/05/2020 09:02:09 Sinus rhythm no longer present Atrial abnormality no longer present Electronically Signed On 02-21-2021 13:03:40 CDT by Agustín Jacobs [email or web address] <ELECTRONICALLY SIGNED> By: Agustín Jacobs MD, [facility] 02/21/21 1303 0935 4 Agustín Jacobs MD, FACC /EPI
[2021-02-21 13:28] VITALS: BP 140/51
[2021-02-21 13:42] VITALS: BP 118/59
--- NOTE | 2021-02-21 14:33 | NUR ---
RECEIVED PT FROM ER. PT HAS 2 ADULT SONS WITH HER. PT WAS LEFT BY ER XFR TEAM WITHOUT RN NOTICE. PT HAS DOPAMINE DRIP, FLUIDS, AND AMIODARONE GTT. FALL PRECAUTIONS IN PLACE.
[2021-02-21 15:12] LABS: % SATURATION 6 % (20-39); IRON 20 ug/dL (50-170); TIBC 348 ug/dL (250-450)
[2021-02-21 16:00] LABS: FOLIC ACID 45.2 ng/mL (8.6-58.9)
[2021-02-21 19:48] VITALS: BP 120/50
[2021-02-21 23:32] VITALS: BP 141/64
[2021-02-21 23:50] VITALS: BP 141/64
[2021-02-22] VITALS (7 sets, daily range): BP systolic 104–1151; BP diastolic 59–77
--- NOTE | 2021-02-22 03:05 | NUR ---
PATIENT OBSERVED GOING INTO ACCELERATED SUSTAINED ATRIAL FIB INTO 130-140'S. CARDIOLOGY CONTACTED WITH ORDERS RECEIVED FOR IV PUSH LOPRESSOR WHICH HAS BEEN EFFECTIVE FOR RATE CONTROL. FOLLOW UP BLOOD PRESSURES HAVE BEEN SATISFACTORY. PATIENT ALSO EXHIBITED CRACKLES WITH ORDERS RECEIVED FOR IV LASIX AND PEÑA CATHETER. MINIMAL URINARY OUTPUT SO FAR. CONTINUE PLAN OF CARE.
[2021-02-22 05:04] LABS: ABSOLUTE NEUTROPHILS 13.1 thou/uL (1.4-8.2); BASOPHILS 0.1 % (0.0-2.0); HEMATOCRIT 33.3 % (37.0-47.0); HEMOGLOBIN 10.7 gm/dL (12.0-15.0); LYMPHOCYTES 2.7 % (24.0-44.0); MCH 27.4 pg (26.0-34.0); MCHC 32.1 g/dL (28.0-37.0); MCV 85.5 fL (80.0-100.0); MONOCYTES 8.1 % (1.0-8.0); PLATELET COUNT 317 thou/uL (150-400); POLYS 89.1 % (36.0-66.0); RDW 15.2 % (10.5-14.5); WBC 14.7 thou/uL (4.0-11.0)
[2021-02-22 05:20] LABS: CALCIUM 8.6 mg/dL (8.5-10.1); MAGNESIUM 2.1 mg/dL (1.8-2.4); POTASSIUM 4.2 mmol/L (3.5-5.1)
--- NOTE | 2021-02-22 08:30 | NUR ---
AROUND 0400 ORDER RECEIVED FOR PATIENT TO BE PLACED ON BIPAP FOR BREATHING DUE TO HYPOXIA. PATIENT WAS ABLE TO TOLERATE WELL WITH OXYGEN SATURATIONS NOTED AROUND 98-100%.
--- NOTE | 2021-02-22 10:37 | 2DMMODE ---
[facility] [place] [address] 2 D/M-MODE ECHOCARDIOGRAM Name: TRICIA TYSONBrooke Frias Room #: 203-P ADM IN ..#: [id number] Admission: 02/21/21 Attend Phys: Jeferson Dempsey MD Discharge: Date of : 34 Report #: [id number] THIS REPORT FOR: cc: Chevy Davis MD, Christopher B. MD Santiago, Patrick MD [facility] ~ APPROVED REPORT Study performed: 02/22/2021 09:50:54 EXAM: Comprehensive 2D, Doppler, and color-flow Echocardiogram Patient Location: Bedside Room #: 203 Status: routine BSA: 1.65 HR: 104 bpm BP: 128/68 mmHg Rhythm: Atrial Fibrillation Other Information Study Quality: Adequate/Off axis apicals. Not all measurements taken. Technically limited study due to lung disease. Indications Tachy-Antonio. Hx: Afib, PVD, COPD, HTN. 2D Dimensions RVDd: 33.15 mm IVSd: 9.29 (7-11mm) LVOT Diam: 19.50 (18-24mm) LVDd: 35.07 mm PWd: 8.44 (7-11mm) LVDs: 25.94 (25-40mm) Left Atrium: 40.78 (27-40mm) Aortic Root: 28.64 mm Aortic Valve AoV Peak Dell.: 1.22 m/s AO Peak Gr.: 5.93 mmHg LVOT Max P.85 mmHg LVOT Max V: 0.68 m/s MACY Vmax: 1.67 cm2 [facility] [address] [place] [address] 2 D/M-MODE ECHOCARDIOGRAM Name: NEIDA TYSON Room #: 203-P [facility]#: [id number] Admission: 02/21/21 Attend Phys: Jeferson Dempsey MD Discharge: Date of : 34 Report #: [id number] Pulmonary Valve PV Peak Dell.: 0.63 m/s PV Peak Gr.: 1.58 mmHg Tricuspid Valve TR Peak Dell.: 2.73 m/s RAP Estimate: 15.00 mmHg TR Peak Gr.: 30.00 mmHg PA Pressure: 45.00 mmHg Left Ventricle The left ventricle is normal size. There is normal LV segmental wall motion. There is normal left ventricular wall thickness. Left ventricular systolic function is normal. LVEF is 60%. This study is not technically sufficient to allow evaluation of the LV diastolic function due to atrial fibrillation. Right Ventricle The right ventricle is normal size. The right ventricular systolic function is normal. Atria Biatrial enlargement. Aortic Valve Aortic valve leaflets are mildly thickened and calcified. Trace aortic regurgitation. There is no aortic valvular stenosis. Mitral Valve Mitral valve leaflets are mildly thickened. Mild mitral annular calcification. Moderate mitral regurgitation. Tricuspid Valve The tricuspid valve is normal in structure. Mild tricuspid regurgitation. Estimated PAP is 40-45mmHg. Pulmonic Valve Pulmonic valve is not well visualized. There is no pulmonic valvular regurgitation. Great Vessels The aortic root is normal in size. Ascending aorta is not well visualized. IVC is dilated and collapses <50% with inspiration. Pericardium There is no pericardial effusion. Bilateral pleural effusions. [facility] [address] [place] [address] 2 D/M-MODE ECHOCARDIOGRAM Name: NEIDA TYSON Room #: 203-P [facility] IN [facility]#: [id number] Admission: 02/21/21 Attend Phys: Jeferson Dempsey MD Discharge: Date of : 34 Report #: [id number] <Conclusion> Normal left ventricular size/wall thickness Ejection fraction 60% Normal right ventricular size/function Unable to perform diastolic assessment due to atrial fibrillation Mild biatrial enlargement Color-flow Doppler study was performed of the aortic/mitral/tricuspid/pulmonary valve Mild aortic valve calcification Trace if aortic valve insufficiency Moderate posteriorly directed mitral valve insufficiency Mild tricuspid valve insufficiency Moderate pulmonary hypertension PA pressure estimated 45 mmHg No pericardial effusion Normal aortic root size. <ELECTRONICALLY SIGNED> By: Agustín Jacobs MD, [facility] 02/22/21 1036 1036 1036 Agustín Jacobs MD, FACC /INF
--- NOTE | 2021-02-22 16:11 | NUR ---
Case opened to follow for dc planning. Pt admitted with cardiac issues and an episode of V tach in the ER. She is on amnio and dopamine gtt. PT/OT/ST evaling. Pt is sleeping this afternoon but reportedly a&ox4. Benzol Still Operator spoke with her son Soham who was here earlier today. He indicates that she is a widowx 2yrs and lives alone. She is fiercely indep and still manages all of her adl's, Iadl's and drives on the side streets. Her pcp is Dr Inocente Davis. She has no dme or prior hh or snf stays. She has 6 steps into her split level home with steps in every direction. He notes she has had her first covid vaccine. No weekend dc anticipated. Will await therapy recommendations. Possible HH referral at dc for cardiopulm assess and home saftey checks. Will follow.
--- NOTE | 2021-02-22 17:29 | NUR ---
RECEIVED PT'S CARE AROUND 0740; PT. ON BED; RESTING WITH EYES CLOSED; ON BYPAP; 02 SAT 100%; AFIB ON THE MONITOR; DURING AM ASSESSMENT PT. AOX4; REQUESTED BYPAP OFF; RT ROUNDING; 0N 6L 02; 92%; EDUCATED ABOUT GOALS THROUGH THE DAY; CALLING BEFORE GETTING UP; ST[facility] UND[facility]STAND[facility]; COVID TEST PERFORMED; SHABANA CARY ROUNDING ON PT; UPDATED ABOUT PT'S HEALTH STATUS DURING THE NIGHT; [facility]; AM PO MEDICATIONS GIVEN AFTER PT. WORKING WITH PT AND OT; URINE AND [facility] SAMPLE SENT; DR. RUBIO NOTIFIED ABOUT PT'S C/O NAUSEA AFTER PO ANTIBIOTIC; IV ANTIBIOTIC STARTED; PT. GONE FOR CT; SON AT THE BED SIDE; UPDATED ABOUT POC; ST. UNDERSTANDING; DR. MOREAU NOTIFIED ABOUT PT'S SOB DURING THE NIGHT; ORDERS RECEIVED; DR. MOREAU AND SH[facility]NA CARY NOTIFIED ABOUT XRAY RESULTS; ORDERS ON PLACED; IV LASIX GIVEN; MONITORING; AFIB ON THE MONITOR; TACHY WITH EXERTION; NO C/O AFTER AM MEDICATION GIVEN; ASSESSMENT CHARGED; FOLLOWING POC; WILL PASS ON REPORT;
[2021-02-23 03:54] VITALS: BP 140/80
[2021-02-23 04:23] LABS: CALCIUM 8.6 mg/dL (8.5-10.1); CREATININE 0.8 mg/dL (0.6-1.0); HEMATOCRIT 31.8 % (37.0-47.0); HEMOGLOBIN 10.3 gm/dL (12.0-15.0); MCH 27.2 pg (26.0-34.0); MCHC 32.4 g/dL (28.0-37.0); MCV 83.9 fL (80.0-100.0); RBC 3.8 mil/uL (4.20-5.00); RDW 14.3 % (10.5-14.5); WBC 13.3 thou/uL (4.0-11.0)
[2021-02-23 07:49] VITALS: BP 145/96
[2021-02-23 12:14] VITALS: BP 129/71
[2021-02-23 15:16] VITALS: BP 132/78
--- NOTE | 2021-02-23 17:19 | NUR ---
RECEIVED PT'S CARE AROUND 724; PT. ON BED; ALERT; AFIB ON THE MONITOR; HANNAH WAHL HEEL PRICKER ROUNDING IN THE HOSPITAL; NOTIFIED; NO NEW ORDERS; AM MEDICATION GIVEN; NO C/O PAIN; EDUCATED ABOUT CALLING BEFORE GETTING UP FROM BED; [facility] UNDERSTAND[facility]; NEEDED TO BE REMAINED ABOUT IT THROUGH THE DAY; PER CARDIOLOGY METOPROLOL GM INCREASED; ORDERS ON PLACED; MEDICATION GIVEN; PT. NOTIFIED AND EDUCATED; ST. UNDERSTANDING; THROUGH THE DAY PT'S HR BETWEEN 110-160s; NON SUSTAIN; DR. MATTSON NOTIFIED; ST. NOT CHANGES UNLESS HR SUSTAIN ABOVE 150s FOR AT LEAST 15 MIN; DIRECTOR EMPLOYEE SAFETY AND HEALTH ST. UNDERSTANDING; PRN MEDICATION GIVEN; HR ABOVE 110s; PT. NOT C/O DIZZINESS OR PALPITATIONS; ASSESSMENT CHARGED; FOLLOWING POC; WILL PASS ON REPORT;
[2021-02-23 19:13] VITALS: BP 130/76
[2021-02-24 03:11] VITALS: BP 143/69
--- NOTE | 2021-02-24 06:04 | NUR ---
ASSUME CARE 2100. PT/VITALS STABLE. INTERMITTENT NON CARDIAC CHEST PAIN WITH MODERATE RELIEF FROM TYLENOL. MODERATE TOLERANCE TO ACTIVITY. ASSESSMENT CHARTED. PROGRESSING MODERATELY WITH POC. PT RUNS AFIB/TACHY ON MONITOR WITH HR SUSTAINING IN ONE-TEENS TO 120s. METOPROLOL 25MG SCHEDULED LATASHA RATE CONTROL. PLAN IS THE POSSIBILITY OF PACEMAKER PLACEMENT ON THURSDAY, IF MEDS DON'T STABILIZE HR. WILL CONTINUE TO MONITOR AND FOLLOW WITH POC
[2021-02-24 07:40] VITALS: BP 172/90
[2021-02-24 11:45] VITALS: BP 143/72
[2021-02-24 15:35] VITALS: BP 130/72
--- NOTE | 2021-02-24 16:50 | NUR ---
RECEIVED PT'S CARE AROUND 0710; PT. ON SITTING AT THE BED SIDE; AOX4; C/O L. SIDE CHEST PAIN DUE CPR PERFORMED IN THE ER; ST. INCREASE PAIN WHEN COUGHING; OFFER PRN PAIN WITH AM MEDICATIONS; AGREED; DR. BRIANNA CARMICHAEL ON PT.; ORDERS RECEIVED; ORDERS ON PLACED; AM MEDICATIONS GIVEN; SCHEDULED PAIN MEDICATION GIVEN; REASSESSMENT PT. ST. DECREASE PAIN; HR BETWEEN 90-130s; ABLE TO RES DURING THE AFTERNOON; ASSESSMENT CHARGED; FOLLOWING POC; WILL PASS ON REPORT;
[2021-02-24 19:44] VITALS: BP 151/86
[2021-02-25 03:54] LABS: CALCIUM 8.2 mg/dL (8.5-10.1); CREATININE 0.6 mg/dL (0.6-1.0); POTASSIUM 3.3 mmol/L (3.5-5.1)
[2021-02-25 03:59] VITALS: BP 151/89
[2021-02-25 04:08] LABS: HEMATOCRIT 32.4 % (37.0-47.0); HEMOGLOBIN 10.7 gm/dL (12.0-15.0); MCH 27.4 pg (26.0-34.0); MCHC 32.9 g/dL (28.0-37.0); MCV 83.1 fL (80.0-100.0); RBC 3.9 mil/uL (4.20-5.00); RDW 15.2 % (10.5-14.5); WBC 10.7 thou/uL (4.0-11.0)
[2021-02-25 07:28] VITALS: BP 140/57
--- NOTE | 2021-02-25 07:42 | HC ---
[facility] [place] [address] CONSULTATION Name: NEIDA TYSON Room #: 203-P ADM IN M.R.#: [id number] Admission: 02/21/21 Attend Phys: Jeferson Dempsey MD Discharge: Date of : 34 Report #: [id number] THIS REPORT FOR: cc: Chevy Davis MD, Christopher B. MD Barry, Joseph W. MD ~ DOC #: [id number] John Pantoja MD DATE OF SERVICE: 02/21/2021 INFECTIOUS DISEASE CONSULTATION DATE OF ADMISSION: 02/21/2021. DATE OF CONSULTATION: 02/21/2021. ATTENDING PHYSICIAN: Dr. Dempsey. REASON FOR EVALUATION: Bimalleolar ulcerations, chronic in nature, involving the right lower extremity. HISTORY OF PRESENT ILLNESS: This is an 85-year-old with extensive medical history, has hypertension, severe peripheral vascular disease with previous stenting, has a bimalleolar ulcers involving the right ankle and that has been open for over a year. She has been followed at the wound care center. Apparently, she is on what sounds like a chronic suppressive approach with penicillin VK. She was admitted with bradycardia and hypotension. This is felt to be perhaps due to adverse drug effect with initiation of calcium channel kim in last 24 hours. She reports recent MRI was otherwise unremarkable. Did not show evidence of osteomyelitis. She had a followup chest x-ray today, which showed some mild to moderate scattered bilateral interstitial and alveolar infiltrates. She denies any pulmonary or gastrointestinal related complaints. She is generally lucid at this point. ALLERGIES: None known. MEDICATIONS: Include apixaban, clopidogrel, gabapentin, amoxicillin 500 p.o. b.i.d., magnesium oxide, clonidine, and multivitamin. PAST MEDICAL HISTORY: Hypertension, atrial fibrillation, severe peripheral vascular disease, post multiple procedures with stenting involving the lower extremities, chronic ulcerations. SOCIAL HISTORY: Smokes cigarettes. Occasional ethanol. No illicit drug use. FAMILY HISTORY: Noncontributory. [facility] [address] [place] [address] CONSULTATION Name: NEIDA TYSON Room #: 203-[facility] IN M.R.#: [id number] Admission: 02/21/21 Attend Phys: Jeferson Dempsey MD Discharge: Date of : 34 Report #: [id number] REVIEW OF SYSTEMS: Otherwise, unremarkable. PHYSICAL EXAMINATION: GENERAL: She is pleasant, alert, cooperative, somewhat chronically ill appearing, mildly undernourished. VITAL SIGNS: Afebrile, pulse 92, respirations 16, and blood pressure 118/59. SKIN: Warm, dry, no rashes. HEENT: Unremarkable. Normocephalic. Extraocular muscles intact. NECK: Supple. LUNGS: Diminished breath sounds. Few scattered crackles. HEART: Regular does have a systolic murmur. ABDOMEN: Soft and nontender. EXTREMITIES: Right lower extremity has bimalleolar ulcers involving medial is larger than the lateral with adequate granulation tissue. There are some areas of slough. Around the margin is a centimeter of, what appears to be hyperemic type changes of the skin. GENITOURINARY AND RECTAL: Deferred. LABORATORY DATA: TSH is 5.462. Chest x-ray as described above. Electrolytes: Sodium 131, potassium 4.4, chloride 90, bicarbonate is 22, anion gap of 11, BUN and creatinine 20 and 1.1. LFTs unremarkable. Albumin of 2.8. Total protein 6.2. Estimated GFR of 47. CBC: White count of 8.0, H and H 9.6 and 29.8, platelets of 288. ASSESSMENT: Bilateral malleolar ulcerations, right lower extremity. PLAN: At this point, we will continue the amoxicillin 500 p.o. b.i.d. as prescribed. Discussed with the wound care. Wounds are generally fairly clean. We will try to get the background. She was encouraged to optimize nutritional status. We will add incentive spirometry. I would expect an abbreviated stay due to actually an adverse drug effect with orthostatic hypotension that should resolve within a short period of time. Continue wound care as prescribed. MD HEMAL Maya/NURA <ELECTRONICALLY SIGNED> By: John Pantoja MD 02/25/21 0742 [id number] John Pantoja MD /nt
[2021-02-25 11:17] VITALS: BP 119/74
--- NOTE | 2021-02-25 15:23 | NUR ---
Patient evaled by [facility] acute rehab and accepted. Requested COVID.
[2021-02-25 19:00] VITALS: BP 128/64
--- NOTE | 2021-02-25 19:36 | NUR ---
ASSUMED CARE SHIFT CHANGE. ASSESSMENTS CHARTED.MEDS GIVEN. VSS. C/O PAIN MANAGED WITH SCHEDULED MEDS. O2 SATS WNL 2-3L O2. UP MIN ASSIST TOLERATING WELL. NPO FOR PACEMAKER PLACEMENT. PT RETURNED FROM PROCEDURE APPROX 1700. PACEMAKER LEFT CHEST, PRESSURE DRESSING APPLIED, INCISION NOT VISIBLE. VSS POST OP. SONS UPDATED ON POC. POSSIBLE REHAB CONSULT. CONTINUING POC. REPORT PASSED TO MAURO COLIN.
[2021-02-25 23:21] VITALS: BP 137/66
[2021-02-26 04:15] VITALS: BP 152/64
--- NOTE | 2021-02-26 05:14 | NUR ---
ASSUMED PT CARE AROUND 1900. A&OX4. PT C/O SORENESS TO LEFT CHEST BUT DENIES ANY CARDIAC CHEST PAIN. SCHEDULED PAIN MEDICATION GIVEN. PT STATED THE SORENESS IS BETTER THIS MORNING. PT SLEPT MOST OF THE NIGHT. RESPIRATIONS EVEN AND UNLABORED. SHE REMAINS ON 3L NC. LEFT CHEST PACEMAKER SITE WITH PRESSURE DRESSING INTACT. LEFT ARM IMMOBILIZER IN PLACE. PEÑA TO DD W/ ADEQUATE URINE OUTPUT. FALL PRECAUTIONS IN PLACE. PROGRESSING TOWARD POC GOALS. WILL CONTINUE TO MONITOR.
[2021-02-26 07:23] VITALS: BP 138/68
[2021-02-26 11:43] VITALS: BP 106/43
[2021-02-26] MEDS ORDERED: DIGOXIN125 MCG PO (13:34)
[2021-02-26] MEDS ORDERED: MELATONIN5 M1 PO (13:34)
[2021-02-26] MEDS ORDERED: HYDROCODONE-CH115 ML PO (13:34)
[2021-02-26] MEDS ORDERED: MIRALAX17 GM PO (13:34)
[2021-02-26] MEDS ORDERED: GENTAMICIN SULF15 GM TOP (13:34)
[2021-02-26] MEDS ORDERED: METOPROLOL SUCC50 MG PO (13:34)
[2021-02-26] MEDS ORDERED: ACETAMINOPHEN325 M1 PO (13:34)
[2021-02-26] MEDS ORDERED: CEFDINIR300 MG PO (13:34)
[2021-02-26] MEDS ORDERED: LASIX 40 MG TAB40 MG PO (14:48)
--- NOTE | 2021-02-26 16:30 | NUR ---
patient accepted to [facility]. patient and family in agreement.
--- NOTE | 2021-02-26 16:53 | NUR ---
BPCI letter provided in patient chart, admitted from home
== END 2021-02-26 16:05 | DRG 853 ==
LOC: ER 09:29 → EROBS 13:26 → 2N 13:26
PROVIDERS: Emergency Medicine; Internal Medicine; Nurse Practitioner; ADMIT Hospitalist; ATTEND Hospitalist
DX: A41.9 Sepsis, unspecified organism (principal); J96.21 Acute and chronic respiratory failure with hypoxia; J13 Pneumonia due to Streptococcus pneumoniae; N17.9 Acute kidney failure, unspecified; E87.1 Hypo-osmolality and hyponatremia; E44.0 Moderate protein-calorie malnutrition; I47.2 Ventricular tachycardia; L97.418 Non-pressure chronic ulcer of right heel and midfoot with other specified severity; L97.919 Non-pressure chronic ulcer of unspecified part of right lower leg with unspecified severity; I13.0 Hypertensive heart and chronic kidney disease with heart failure and stage 1 through stage 4 chronic kidney disease, or unspecified chronic kidney disease; J44.0 Chronic obstructive pulmonary disease with (acute) lower respiratory infection; I42.9 Cardiomyopathy, unspecified; I49.5 Sick sinus syndrome; I73.89 Other specified peripheral vascular diseases; Z20.822 Contact with and (suspected) exposure to COVID-19; N18.9 Chronic kidney disease, unspecified; G62.9 Polyneuropathy, unspecified; I65.21 Occlusion and stenosis of right carotid artery; Z66 Do not resuscitate; I95.2 Hypotension due to drugs; T50.905A Adverse effect of unspecified drugs, medicaments and biological substances, initial encounter; Z60.2 Problems related to living alone; I48.0 Paroxysmal atrial fibrillation; I49.9 Cardiac arrhythmia, unspecified; I87.2 Venous insufficiency (chronic) (peripheral); R53.81 Other malaise; E87.6 Hypokalemia; F17.201 Nicotine dependence, unspecified, in remission; S20.211A Contusion of right front wall of thorax, initial encounter; I50.9 Heart failure, unspecified; X58.XXXA Exposure to other specified factors, initial encounter; Y93.89 Activity, other specified; Z79.899 Other long term (current) drug therapy; Z87.81 Personal history of (healed) traumatic fracture; Z95.820 Peripheral vascular angioplasty status with implants and grafts; Z68.20 Body mass index [BMI] 20.0-20.9, adult; Y92.89 Other specified places as the place of occurrence of the external cause; Y99.8 Other external cause status
CPT/HCPCS: 10081; 62110; 62900; 70005

== ENCOUNTER 2021-02-26 11:07 | Inpatient (IN) | payer OTHER ==
[~2021-02-26] VITALS: Ht 162.6 cm; Wt 54.0 kg
--- NOTE | ~2021-02-26 | HC ---
[place] [address] CONSULTATION Name: NEIDA TYSON Room #: 509-P ADM IN M.R.#: [id number] Admission: 02/26/21 Attend Phys: Blaine Griffin MD Discharge: Date of : 34 Report #: [id number] THIS REPORT FOR: cc: Chevy Davis MD, Christopher B. MD Deutch, Neal B. PhD ~ DOC #: [id number] Jovani Howard, PhD DATE OF SERVICE: 03/02/2021 NEUROBEHAVIORAL STATUS EXAMINATION ATTENDING PHYSICIAN: Blaine Griffin MD CONSULTANTS: Jovani Howard, PhD. CLINICAL PRESENTATION: The patient is an 85-year-old female admitted to initially with bradycardia and hypotension. She carries a past medical history that included a pacemaker placement on 02/25/2021. Her assessment on admission to the rehabilitation unit is cardiac rehabilitation, severe bradycardia with hypotension, premorbid peripheral neuropathy, chronic ulcer, severe peripheral vascular disease, history of cardiomyopathy, atrial fibrillation, malnutrition, sick sinus syndrome, debilitation, chronic tobacco abuse, multi-stairs in her house. A complete description of her medical condition and history can be found in her medical record. Neuropsychological consultation was requested to provide assistance in the assessment of cognitive and emotional status and provide recommendations and services. The patient reports that she lives alone in her own home. She indicates being independent with basic and instrumental activities of daily living. She reports having taken all her medications in the morning and began to feel dizzy when she subsequently sought hospitalization. She had three children. Her son and her about 2-1/2 years ago. Two sons are living within the [place] area and provide support. The patient is a high school graduate with 3 years of college. 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 TECHNIQUES UTILIZED: Clinical interview, review of medical records, staff consultation and behavioral observation, mini mental status exam 2 standard version and verbal fluency assessment. EXAMINATION FINDINGS: The patient was alert and cooperative with the assessment. She actually described events surrounding her hospitalization. She reports having had weight loss along with feelings of depression and anxiety. [address] [place] [address] CONSULTATION Name: MARBELLANEIDA J Room #: 509-P [facility] IN ..#: [id number] Admission: 02/26/21 Attend Phys: Blaine Griffin MD Discharge: Date of : 34 Report #: [id number] She has not reported difficulty with memory and felt like her cognitive functioning is good. Performance on the MMSE 2 brief version was in the impaired range with the raw score of 12-16, which is a T score at 31 and percentile rank of 3. She is 3/3 for initial registration, 5/5 for orientation at time, and 3/[address] She was 1/3 for immediate recall of 3 items after a brief time delay and distraction. Her performance improved on the MMSE 2 standard version to a raw score of 26/30. She was 5/5 for serial sevens, was able to copy a simple geometric design and write a sentence. Auditory comprehension was satisfactory. Clock drawing is within normal limits. Verbal fluency assessment suggests mild difficulty with letter fluency with a T score of 48, percentile rank of 16. Category fluency was 62nd percentile and total fluency at the 27th percentile. The patient was presenting with a mild neurocognitive disorder, likely with deficits in executive functioning and memory. 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 Unspecified depressive disorder. RECOMMENDATIONS: The patient will likely require increased assistance in the management of medication and finances upon her return home. If driving, a followup neuropsych assessment or more careful evaluation of driving ability is recommended to improve safety. She may benefit from the use of an antidepressant medication with suggesting followup upon her return or followup upon discharge. Thank you very much for allowing me to provide consultation on this patient. Jovani Howard, PhD ADA/GALINDO By: [phone] Jovani Howard, PhD /
[2021-02-26] MEDS ORDERED: DIGOXIN125 MCG PO (13:34)
[2021-02-26] MEDS ORDERED: HYDROCODONE-CH115 ML PO (13:34)
[2021-02-26] MEDS ORDERED: CEFDINIR300 MG PO (13:34)
[2021-02-26] MEDS ORDERED: MIRALAX17 GM PO (13:34)
[2021-02-26] MEDS ORDERED: ACETAMINOPHEN325 M1 PO (13:34)
[2021-02-26] MEDS ORDERED: METOPROLOL SUCC50 MG PO (13:34)
[2021-02-26] MEDS ORDERED: MELATONIN5 M1 PO (13:34)
[2021-02-26] MEDS ORDERED: GENTAMICIN SULF15 GM TOP (13:34)
[2021-02-26] MEDS ORDERED: LASIX 40 MG TAB40 MG PO (14:48)
[2021-02-26 16:30] VITALS: BP 144/60
--- NOTE | 2021-02-26 18:00 | NUR ---
NEW ADMISSION FROM CCU, CAME IN VIA WC WITH HOSP STAFF. ALERT AND ORIENTATED X 3. DENIES ANY PAIN, DOES REPORT SOME SORENESS IN THE L UPPER CHEST POST PPM WITH IMMOBILIZER IN PLACE. VSS. ASSESSMENT DONE AND COMPLETED. 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 R LAT AND MEDIAL ANKLE DRESSING ON AND NURSE JUST DID PRIOR SENDING PT UP AND PT REFUSED THIS NURSE TO REMOVE DRESSING. PEDAL PULSES PALPABLE WITH GOOD CAP REFILL. PEÑA DRAINING ADEQ. ON PO LASIX. TRACE EDEMA IN BLE. UP WITH GAIT BELT TO BED. CALL LIGHT WITHIN REACH. ALL QUESTIONS AND CONCERNS ANSWERED.
[2021-02-26 19:17] VITALS: BP 151/72
--- NOTE | 2021-02-27 00:42 | NUR ---
PT ALERT AND ORIENTED X 4. PEÑA PATENT DRAINING CLEAR DARK YELLOW URINE. 02 ON AT 3L PER NC. LEFT CHEST INCISION C/D/I. NO BM SINCE 02/21. REFUSED LAXATIVES. DRESSINGS TO RIGHT LE C/D/I. SHOULDER IMMOBILIZER ON AT ALL TIMES. PT DENIES PAIN OR DISCOMFORT. BED ALARM ON FOR SAFETY. PT APPEARS TO BE SLEEPING ON HOURLY ROUNDS.
[2021-02-27 05:24] LABS: HEMATOCRIT 36.1 % (37.0-47.0); HEMOGLOBIN 11.7 gm/dL (12.0-15.0); MCH 27.1 pg (26.0-34.0); MCHC 32.3 g/dL (28.0-37.0); MCV 83.8 fL (80.0-100.0); RBC 4.31 mil/uL (4.20-5.00); RDW 14.5 % (10.5-14.5); WBC 8.2 thou/uL (4.0-11.0)
[2021-02-27 05:39] LABS: CALCIUM 8.1 mg/dL (8.5-10.1); CREATININE 0.6 mg/dL (0.6-1.0)
[2021-02-27 07:30] VITALS: BP 137/65
--- NOTE | 2021-02-27 08:06 | NUR ---
ASSUMED CARE AT 0700. PATIENT IS ALERT AND ORIENTED X4. PATIENT MALIN'S, SPORTS TEACHER ARE EQUAL. LUNGS ARE CLEAR. PATIENT HAS LEFT CHEST INCISION R/T PACEMAKER INSERTION. HR IS IRREGULAR. 02 AT 3L PER N/C. PATIENT IS UP WITH GAIT BELT AND ASSIST OF 1 STAFF. PATIENT HAS RIGHT LEG WOUND WITH OPTIFOAM IN PLACE. WILL CHANGE DRESSING AFTER O.T. TODAY. PATIENT HAS S.L. IN HER LEFT WRIST. PATIENT HAS PEÑA TO DD, DRAINING HORACE COLORED URINE. PATIENT HAS LEFT ARM IMMOBILIZER ON AND IN PLACE. FALL AND SAFETY PROTOCOLS IN PLACE. DENIES PAIN AT THIS TIME. CONTINUES TO PROGRESS SLOWLY TOWARDS D/C GOALS. WILL CONTINIUE TO MONITER.
--- NOTE | 2021-02-27 14:19 | NUR ---
chart review. cm tried to visit with her, she working with therapy and resting. noted she independent prior to hospital, manage own medication, drives short distances. lives alone in spilt level home with stairs to each level of home. has son. will cont following as needed for dc needs. BPCI.
[2021-02-27 20:00] VITALS: BP 110/59
--- NOTE | 2021-02-28 00:50 | NUR ---
PT ALERT AND ORIENTED X 4. AMB TO BR WITH GAIT BELT AND ASSIST X 1. LEFT CHEST INCISION C/D/I. DULCOLAX SUPP GIVEN AT START OF SHIFT. NO RESULTS YET. PT DENIES PAIN OR DISCOMFORT. BED ALARM ON FOR SAFETY. PT APPEARS TO BE SLEEPING ON HOURLY ROUNDS.
[2021-02-28 08:45] VITALS: BP 109/53
[2021-02-28 09:17] LABS: CALCIUM 9.1 mg/dL (8.5-10.1); CREATININE 0.9 mg/dL (0.6-1.0)
--- NOTE | 2021-02-28 12:31 | NUR ---
ASSUMED CARE AT 0700. SLEPT FAIRLY WELL. ALERT AND ORIENTATED X 3. PLESANT AND COOPERATIVE. L CHEST INCISION INTACT, NO SIGNS OF BLEEDING. PACEMAKER PRECAUTION MAINTAINED. WOUND TO R LAT AND MEDIAL ANKLE COMPLETED BY WOUND CARE. DENIES ANY PAIN BUT DOES REPORT SORENESS AROUND INCISION SITE. DULCOLAX SUPP GIVEN LAST NIGHT AND HAD A SMALL BM. DENIES ANY NAUSEA. APPETITE FAIR. UP WITH MIN ASSIST. PROGRESSING TOWARDS GOAL.
[2021-02-28 19:50] VITALS: BP 109/46
--- NOTE | 2021-03-01 02:15 | NUR ---
ASSUMED CARE OF PT AT 1915 ON 02/28/21. PT IS A&OX4. IS ON ROOM AIR. DENIES PAIN IN RIGHT ANKLE. DRSG C/D/I/. PT IS UP WITH KARY RENEE. FALL PRECAUTION & HOURLY ROUNDING CONTINUED THIS SHIFT. LABS & VITALS REVIEWED. PT IS STABLE. IS CURRENTLY IN BED ASLEEP. CALL LIGHT WITHIN REACH. WILL CONTINUE TO MONITOR.
[2021-03-01 07:15] VITALS: BP 126/60
--- NOTE | 2021-03-01 11:13 | NUR ---
Assumed pt care at 7am.Pt up in bed resting without c/o.Assessment completed. vss.Pt wanted to do more with therapists today.Am meds given with breakfast and well tolerated.Chair and bed alarm for safety.Pt pacemaker to left upper chest without redness or abnormal hr.Pt encouraged to call for needs.Tylenol po given for comfort as ordered.Will continue to monitor.
[2021-03-01 19:55] VITALS: BP 143/75
--- NOTE | 2021-03-02 02:45 | NUR ---
PT CARE ASSUMED AT 1910 WITH PT SITTING AT SIDE OF BED.PT IS A/O X4,PT IS UP WITH X1 ASSIST AND GAIT BELT .WOUND DRESSING ON LLE WITH BORDER FOAM C/D/I.PT IS ON ROOM AIR.PACEMAKE ON LT CHEST AREA.PT APPEARED TO BE IN NO ACUTE DISTRESS.WILL CONTINUE TO MONITOR PER POC
[2021-03-02 07:15] VITALS: BP 129/62
[2021-03-02 19:00] VITALS: BP 116/54
--- NOTE | 2021-03-02 20:04 | NUR ---
ASSUMED CARE AT 0700. A&OX4. PACEMAKER PRECAUTIONS ARE IN PLACE. LEFT CHEST INCISION INTACT, AND NO S/S O INFECTION NOTED. S1&S2 PRESENT, HEART RATE WNL, W. NOTED IRREGILAR RHYTHM INTERMITENTLY. ASSIST OF 1 WITH TRANSFERS AND AMBULATION USING GAIT BELT. NO C/O PAIN OR DISCOMFORT. NO CONCERNS AT THIS TIME, WILL CONTINUE TO MONITOR.
--- NOTE | 2021-03-03 03:52 | NUR ---
assumed pt care at around 1900, pt is awake, alert and oriented, laying down in bed, assessments as charted, soreness to the l.chest, left chest cdi, no hematoma or s/s of infection, up to the bathroom with stby assist, dulcolax given per pt request, states "it works for me", pt had a small bm, meds given as per dec, no needs at this time, will continue to monitor and follow poc
[2021-03-03 08:25] VITALS: BP 121/60
--- NOTE | 2021-03-03 19:17 | NUR ---
ASSUMED CARE AT 0700. PATIENT IS A&OX4. STAND BY ASSIST WITH TRASFERS AND AMBULATION, USING GAITBELT. REPORT MILD PAIN AROUND INCISION CITE, PAIN MANAGED WITH SCHEDULED HYDROCODONE. LEFT CHEST INCISION DRY AND INTACT. NO S/S OF INFECTION NOTED. NO CONCERNS AT THIS TIME. WILL CONT. MONITOR.
[2021-03-03 20:10] VITALS: BP 140/59
--- NOTE | 2021-03-04 01:54 | NUR ---
PT LYING IN BED. LORTAB PROVIDING PAIN RELIEF. AMBULATING TO BATHROOM WITH STANDBY ASSIST AND IS TOLERATING FAIR. RESTING COMFORTABLY. NO NEEDS VOICED. CALL LIGHT WITHIN REACH. FREQUENT OBSERVATION.
[2021-03-04 06:15] LABS: ABSOLUTE NEUTROPHILS 4.1 thou/uL (1.4-8.2); BASOPHILS 0.9 % (0.0-2.0); EOSINOPHILS 2.3 % (0.0-3.0); HEMATOCRIT 34.6 % (37.0-47.0); HEMOGLOBIN 11.1 gm/dL (12.0-15.0); LYMPHOCYTES 16.7 % (24.0-44.0); MCH 26.6 pg (26.0-34.0); MCHC 32.2 g/dL (28.0-37.0); MCV 82.5 fL (80.0-100.0); MONOCYTES 14.3 % (1.0-8.0); PLATELET COUNT 294 thou/uL (150-400); POLYS 65.8 % (36.0-66.0); RBC 4.19 mil/uL (4.20-5.00); RDW 14.8 % (10.5-14.5); WBC 6.3 thou/uL (4.0-11.0)
[2021-03-04 06:23] LABS: CALCIUM 8.4 mg/dL (8.5-10.1); CREATININE 0.9 mg/dL (0.6-1.0); MAGNESIUM 1.7 mg/dL (1.8-2.4); POTASSIUM 3.8 mmol/L (3.5-5.1)
[2021-03-04 08:04] VITALS: BP 142/71
--- NOTE | 2021-03-04 13:56 | NUR ---
Received awake on bed. Due medications given as prescribed, able to swallow meds w/o difficulty. On room air. Vital signs stable. S/P L chest pacemaker placement- on sternal precautions- pt informed and aware; reminded from time to time. On MS, not on telemetry; no complains and signs of chest pain, crushing sensation and heaviness. Assisted in ADLs. On heart healthy diet- tolerating well; no nausea, no vomiting and no abdominal pain noted. Continent of bowel and bladder, able to go to the toilet with standby assist; falls bundle in place. With wound at R ankle- wound care consult made; dressing C/D/I; changed today. No IV noted. Pt asking re: Mod I order- Dr Griffin informed; to verify with therapy team- pt seen and examined by physical therapist; patient not yet to be advanced to Mod I- PT explained reason. Post pacemaker site with dermabond, C/D/I. To continue monitoring patient.
[2021-03-04 20:00] VITALS: BP 112/67
--- NOTE | 2021-03-05 02:14 | NUR ---
PT WAS OBSERVED LYING ON HER BED WATCHING TV AT SHIFT CHANGE.PT ALERT/CALM AND COPERATIVE WITH CARE.PACEMAKER SITE ON L CHEST C/D/I.DRSG TO THE SIDES OF HER R ANKLE C/D/I,CHANGED BY AM NURSE.PT CALLED FOR HER HS MEDS WITHOUT ANY CUE.UP WITH SBA.PT SLEEPING ON HER BED AT THIS TIME.CALL LIGHT WITHIN [facility].
[2021-03-05 07:15] VITALS: BP 147/60
[2021-03-05 08:20] VITALS: BP 147/60
--- NOTE | 2021-03-05 11:36 | PLAN ---
[facility] [place] [address] REHAB UNIT PLAN OF CARE Name: NEIDA TYSON Room #: 509-P ADM IN M.R.#: [id number] Admission: 02/26/21 Attend Phys: Blaine Griffin MD Discharge: Date of : 34 Report #: [id number] THIS REPORT FOR: cc: Chevy Davis MD, Christopher B. MD Smithson,Blaine Morfin MD ~ DOC #: [id number] Blaine Griffin MD DATE OF SERVICE: 03/01/2021 PROGRESS NOTE AND OVERALL PLAN OF CARE SUBJECTIVE: The patient was seen back today in followup. She is in no distress. Temperature 36.3, pulse 96, respirations 16, blood pressure 126/60. Her pacemaker incision appears to be intact. Lungs sound clear. Physical therapy is working with her and monitoring her heart rate. Appreciate the hospitalist and Cardiology involvement. Notes that, her Toprol was escalated to 75 mg. She is on Eliquis for prophylaxis. She has pacemaker precautions. Functionally, she is transferring with min assist and gait is standby assistance 230 feet without a device. In occupational therapy, lower body dressing is supervision. In speech therapy, she has mild cognitive deficits with mild memory deficits. ASSESSMENT: 1. Mild hypoxic encephalopathy. The patient does have cognitive and memory deficits, although they are improving from a moderate to more of a mild level. She did receive short CPR. 2. Medical complexity with generalized debilitation. 3. Sick sinus syndrome, status post permanent pacemaker. 4. Chronic ulcerations, right lower extremity with bilateral malleoli. 5. Severe peripheral vascular disease with history of stents. 6. Pneumonitis, respiratory failure and chronic obstructive pulmonary disease acute exacerbation. 7. Hypokalemia. 8. Cardiomyopathy. 9. Atrial fibrillation. 10. Protein-calorie malnutrition. PLAN: The overall plan of care is based on the pre-admission screen and information garnered from therapy assessments. 1. Estimated length of stay is probably around 7-10 days. 2. Medical prognosis is reasonably good. 3. Anticipated interventions include the interdisciplinary acute inpatient rehabilitation program. 4. Anticipated functional outcomes would be for the patient to become modified independent with transfers, mobility, ADLs and cognition, so that the patient [address] [address] REHAB UNIT PLAN OF CARE Name: TRICIA TYSONBrooke Frias Room #: 509-P [facility] IN ..#: [id number] Admission: 02/26/21 Attend Phys: Blaine Griffin MD Discharge: Date of : 34 Report #: [id number] can return back to her home setting. 5. Discharge destination would be back to the home setting where she lives in a house. She was living alone, but does have a closely involved son who is currently visiting. 6. Expected therapy by discipline includes PT, OT and speech 1 hour per day each 5 days a week throughout the duration of the acute inpatient rehabilitation stay. The patient's prognosis for significant practical improvement within a reasonable period of time appears good. Given the patient's complex medical condition and risk of further medical complications, Rehabilitation Services could not be safely provided at the lower level of care such as a senior care facility. Blaine Griffin MD DGS <ELECTRONICALLY SIGNED> By: Blaine Griffin MD 03/05/21 [id number] Blaine Griffin MD /nt
--- NOTE | 2021-03-05 11:36 | H ---
[facility] [place] [address] HISTORY AND PHYSICAL Name: NEIDA TYSON Room #: 509-P ADM IN M.R.#: [id number] Admission: 02/26/21 Attend Phys: Blaine Griffin MD Discharge: Date of : 34 Report #: [id number] THIS REPORT FOR: cc: Chevy Davis MD, Christopher B. MD Smithson, David G. MD ~ DOC #: [id number] Blaine Griffin MD DATE OF SERVICE: 02/27/2021 HISTORY OF PRESENT ILLNESS: The patient is an 85-year-old white female, who was originally admitted to [facility] on 02/21/2021 with bradycardia and hypotension. She was started on Cardizem, complained of dizziness, lightheadedness. Heart rate was in the 30s with runs of V-tach. Seen by cardiology. She underwent a [employer] pacemaker on 02/25/2021. She is noted to have generalized weakness and debilitation with medical complexity and has been followed by multiple consultants physicians. She has peripheral vascular disease, complicated by chronic right lower extremity bimalleolar ulcerations. Infectious disease has been involved as well as wound care. These are noted to be venous type ulcers, right medial and lateral ankle. She does have a history of peripheral neuropathy, along with COPD and moderate protein calorie malnutrition. She has been admitted for acute in-hospital inpatient rehabilitation. PAST MEDICAL HISTORY: Delineated above. There is also note of hypertension. PAST SURGICAL HISTORY: She has had a right carotid endarterectomy, atrial fibrillation, tobacco abuse. She has had lower extremity stenting. MEDICATIONS: Please see the full medication listing. ALLERGIES: TRAMADOL. SOCIAL HISTORY: Lives alone in a house with 4 flights of stairs, each staircase has 7 stairs. Denied assistive devices, was driving and independent in all functions premorbidly, does have 2 involves sons and a [id number]. REVIEW OF SYSTEMS: Did not offer any current complaints of chest pain, shortness of breath or abdominal discomfort. Some mild discomfort of surgical site as expected. HABITS: As noted above. History of tobacco abuse. PHYSICAL EXAMINATION: GENERAL: She is a pleasant, thin 85-year-old white female in no obvious distress. [address] [address] HISTORY AND PHYSICAL Name: NEIDA TYSON Room #: 509-P [facility] IN [facility].#: [id number] Admission: 02/26/21 Attend Phys: Blaine Griffin MD Discharge: Date of : 34 Report #: [id number] VITAL SIGNS: Last recorded temperature 97.9, pulse 92, respirations 18, blood pressure 137/65. GENERAL: The patient is alert, oriented, follows basic commands without difficulty. HEENT: Appeared to be benign. Cranial nerves are grossly intact. CHEST: Some Decreased breath sounds throughout. Her pacemaker incision appears to be healing well. She is currently on 3 liters nasal cannula. CARDIAC: Sounded regular rate and rhythm. ABDOMEN: Bowel sounds positive, nontender. GENITOURINARY: Deferred RECTAL: Deferred. EXTREMITIES AND NEUROLOGIC: I did not range the left upper extremity with the recent pacemaker. Appears to have reasonable range of motion of elbow, wrist and hand with gentle strength appeared to be at least a grade 4-/5 right upper extremity functional range of motion with strength a grade 4-/5. Lower extremities: No focal calf swelling. Tone appeared to be intact. Functional range of motion with strength a grade 3+ to 4-/5. She has been needing min assist to stand and has done some short distance ambulation, min assist. ASSESSMENT: An 85-year-old white female with the following problem list: 1. Cardiac debilitation. 2. Severe bradycardia with hypotension, status post cardiac pacemaker 02/25/2021. 3. Premorbid peripheral neuropathy. 4. Chronic ulcerations, bilateral malleoli. 5. Severe Peripheral vascular disease. 6. History of cardiomyopathy. 7. Atrial fibrillation. 8. Malnutrition. 9. Sick sinus syndrome. 10. Debilitation. 11. Chronic tobacco abuse with smoking less than a pack a day. 12. Multiple stairs in her house. PLAN: The patient has been admitted for acute in-hospital inpatient rehabilitation. Please see the patient's previous and current functional status. As far as risk of complications, she has multiple medical comorbidities as noted above. Initial plan of care involves the interdisciplinary acute inpatient rehabilitation program. Measurable functional goals would be for the patient to become modified independent with transfers, mobility and ADLs, so she can hopefully return back to her prior living situation. Prognosis is reasonably good with estimated length of stay probably at least 7 to 10 days. Potential barriers would include her multiple medical comorbidities and decreased functional status. [facility] [address] [place] [address] HISTORY AND PHYSICAL Name: NEIDA TYSON Room #: 509-P [facility] IN M.R.#: [id number] Admission: 02/26/21 Attend Phys: Blaine Griffin MD Discharge: Date of : 34 Report #: [id number] The patient's diagnosis is appropriate. She does meet the medical necessity criteria and we will have the multiple apartment leasing consultant physicians continue to follow. She has the tolerance for therapies and has appropriate discharge goals back to the home setting. Blaine Griffin MD DGS/PUN <ELECTRONICALLY SIGNED> By: Blaine Griffin MD 03/05/21 1136 [id number] Blaine Griffin MD /nt
--- NOTE | 2021-03-05 14:17 | NUR ---
team meeting, recommendation: change to mod I in room, cont pacemaker/cardiac precaution. son will help with pills and bills. [facility] (pt, ot, st, nursing) will cont following as needed for dc needs. she out with son to get her 2nd covid vaccine.
[2021-03-05 20:03] VITALS: BP 144/71
--- NOTE | 2021-03-05 20:19 | NUR ---
ASSUMED CARE AT 0700. A&OX4. ABLE TO MAKE NEEDS KNOWN. PATIENT IS NOW MODIFIED INDEPENDENT IN HER ROOM. PATIENT WAS GIVEN A DAY PASS TO GO WITH HER SON TO GET THE SECOND DOSE OF HER COVID VACCINE. PATIENT CAME BACK TO UNIT AT 1450. PLANNING TO DISCHARGE ON 03/06. NO CONCERNS AT THIS TIME WILL CONTINUE TO MONITOR.
--- NOTE | 2021-03-05 23:31 | NUR ---
ASSUMED CARE OF PT AT 1915. PT IS A&OX4. IS STABLE. IS ON ROOM AIR. DENIES PAIN. DRSG C/D/I TO MEDIAL & LATERAL RIGH ANKLE. PT IS UP MOD I IN ROOM. HOURLY ROUNDING CONTINUED THIS SHIFT. LABS & VITALS REVIEWED. WILL CONTINUE TO MONITOR. CALL LIGHT WIHIN REACH.
[2021-03-06 07:15] VITALS: BP 133/63
[2021-03-06] MEDS ORDERED: METOPROLOL SUCC50 MG PO (10:19)
[2021-03-06] MEDS ORDERED: ELIQUIS2.5 MG PO (10:19)
[2021-03-06] MEDS ORDERED: MAGOX 400400 MG PO (10:19)
[2021-03-06] MEDS ORDERED: K-DUR 20 MEQ T20 MEQ PO ×2 (10:19→10:54)
[2021-03-06] MEDS ORDERED: NEURONTIN 300M300 M2 PO (10:28)
[2021-03-06] MEDS ORDERED: TYLENOL EXTRA500 MG PO (10:31)
[2021-03-06] MEDS ORDERED: VENTOLIN HFA 1818 GM INH ×2 (10:31→10:53)
[2021-03-06 10:46] VITALS: BP 133/63
[2021-03-06] MEDS ORDERED: LASIX 40 MG TAB40 MG PO (10:53)
[2021-03-06] MEDS ORDERED: TOPROL XL25 MG PO (11:54)
--- NOTE | 2021-03-06 12:49 | NUR ---
ASSUMED CARE AT SHIFT CHANGE. PT A/O X 4. WORKED WITH THERAPY THIS AM. PLAN TO DC THIS AFTERNOON. SON AT BEDSIDE FOR DC AND WILL ASSIST PT HOME. WOUND CARES COMPLETED PRIOR TO DC. PHOTO IN CHART.
== END 2021-03-06 13:15 | disposition home health service (06) | DRG 91 ==
PROVIDERS: Nurse Practitioner; Nurse Practitioner Family; ADMIT Physical Medicine & Rehabilitation; ATTEND Physical Medicine & Rehabilitation
PROC: 5A12012 Performance of Cardiac Output, Single, Manual (ICD-10-PCS; principal; 2021-03-01)
DX: G93.1 Anoxic brain damage, not elsewhere classified (principal); J18.9 Pneumonia, unspecified organism; J96.21 Acute and chronic respiratory failure with hypoxia; J44.0 Chronic obstructive pulmonary disease with (acute) lower respiratory infection; I42.9 Cardiomyopathy, unspecified; L97.829 Non-pressure chronic ulcer of other part of left lower leg with unspecified severity; L97.819 Non-pressure chronic ulcer of other part of right lower leg with unspecified severity; E44.0 Moderate protein-calorie malnutrition; I47.2 Ventricular tachycardia; M31.9 Necrotizing vasculopathy, unspecified; I48.20 Chronic atrial fibrillation, unspecified; J44.1 Chronic obstructive pulmonary disease with (acute) exacerbation; R53.81 Other malaise; I49.5 Sick sinus syndrome; I73.9 Peripheral vascular disease, unspecified; E87.6 Hypokalemia; F32.9 Major depressive disorder, single episode, unspecified; G31.84 Mild cognitive impairment of uncertain or unknown etiology; I95.9 Hypotension, unspecified; Z66 Do not resuscitate; G62.9 Polyneuropathy, unspecified; I48.0 Paroxysmal atrial fibrillation; I10 Essential (primary) hypertension; I87.2 Venous insufficiency (chronic) (peripheral); E83.42 Hypomagnesemia; Z95.0 Presence of cardiac pacemaker; Z95.820 Peripheral vascular angioplasty status with implants and grafts; Z68.20 Body mass index [BMI] 20.0-20.9, adult; Z88.8 Allergy status to other drugs, medicaments and biological substances; Z87.81 Personal history of (healed) traumatic fracture
CPT/HCPCS: 10112

== ENCOUNTER → 2021-03-14 | Outpatient (CLI) | payer OTHER ==
[~2021-03-14] MED LIST changes: +ACETAMINOPHEN325 M1 PO; +CEFDINIR300 MG PO; +DIGOXIN125 MCG PO; +GENTAMICIN SULF15 GM TOP; +HYDROCODONE-CH115 ML PO; +K-DUR 20 MEQ T20 MEQ PO; +LASIX 40 MG TAB40 MG PO; +MELATONIN5 M1 PO; +METOPROLOL SUCC50 MG PO; +MIRALAX17 GM PO; +NEURONTIN 300M300 M2 PO; +TOPROL XL25 MG PO; +VENTOLIN HFA 1818 GM INH
== END ==
LOC: HYPER 08:44
PROVIDERS: ATTEND Emergency Medicine
DX: I70.233 Atherosclerosis of native arteries of right leg with ulceration of ankle (principal); L97.312 Non-pressure chronic ulcer of right ankle with fat layer exposed; R60.0 Localized edema; L84 Corns and callosities; I10 Essential (primary) hypertension; H26.9 Unspecified cataract; F17.200 Nicotine dependence, unspecified, uncomplicated; Z79.01 Long term (current) use of anticoagulants; Z95.828 Presence of other vascular implants and grafts

== ENCOUNTER → 2021-03-21 | Outpatient (CLI) | payer OTHER | LOC: SJCVC 08:48 | PROVIDERS: ATTEND Internal Medicine Cardiovascular Disease | DX: I25.10 Atherosclerotic heart disease of native coronary artery without angina pectoris (principal); R94.31 Abnormal electrocardiogram [ECG] [EKG]; I48.0 Paroxysmal atrial fibrillation; E78.5 Hyperlipidemia, unspecified; I73.9 Peripheral vascular disease, unspecified; K55.1 Chronic vascular disorders of intestine; I77.9 Disorder of arteries and arterioles, unspecified; D68.59 Other primary thrombophilia; I10 Essential (primary) hypertension; F17.200 Nicotine dependence, unspecified, uncomplicated; Z79.899 Other long term (current) drug therapy; Z82.49 Family history of ischemic heart disease and other diseases of the circulatory system ==

== ENCOUNTER → 2021-03-26 | Outpatient (CLI) | payer OTHER | LOC: HYPER 08:11 | PROVIDERS: ATTEND Emergency Medicine | DX: I70.233 Atherosclerosis of native arteries of right leg with ulceration of ankle (principal); L97.312 Non-pressure chronic ulcer of right ankle with fat layer exposed; R60.0 Localized edema; L84 Corns and callosities; I10 Essential (primary) hypertension; H26.9 Unspecified cataract; F17.200 Nicotine dependence, unspecified, uncomplicated; Z79.01 Long term (current) use of anticoagulants; Z95.828 Presence of other vascular implants and grafts ==

== ENCOUNTER 2021-04-09 03:45 | Inpatient (IN) | payer OTHER ==
[~2021-04-09] VITALS: Ht 162.6 cm; Wt 50.0 kg
[2021-04-09 03:49] VITALS: BP 153/116
[2021-04-09] MEDS ORDERED: TOPROL XL100 MG PO (04:01)
[2021-04-09 04:42] LABS: ANION GAP 9 mmol/L (7-16); BUN 30 mg/dL (7-18); CALCIUM 8.6 mg/dL (8.5-10.1); CHLORIDE 101 mmol/L (98-107); CO2 23 mmol/L (21-32); CREATININE 0.9 mg/dL (0.6-1.0); GLUCOSE 115 mg/dL (74-106); POTASSIUM 5.5 mmol/L (3.5-5.1); SODIUM 133 mmol/L (136-145)
[2021-04-09 04:45] LABS: ABSOLUTE NEUTROPHILS 6.7 thou/uL (1.4-8.2); BASOPHILS 0.5 % (0.0-2.0); LYMPHOCYTES 6.7 % (24.0-44.0); MCH 25.7 pg (26.0-34.0); MCHC 32.3 g/dL (28.0-37.0); MCV 79.6 fL (80.0-100.0); MONOCYTES 12.4 % (1.0-8.0); PLATELET COUNT 271 thou/uL (150-400); POLYS 79.4 % (36.0-66.0); RBC 4.27 mil/uL (4.20-5.00); RDW 17.3 % (10.5-14.5); WBC 8.4 thou/uL (4.0-11.0)
[2021-04-09 04:53] LABS: ALBUMIN 3.2 g/dL (3.4-5.0); APTT 24.3 Seconds (24.5-32.8); D-DIMER 0.71 ug/mLFEU (0.19-0.50); INR 1.03; LIPASE 232 U/L (73-393); MAGNESIUM 2.1 mg/dL (1.8-2.4); PROTIME 11.2 Seconds (10.5-12.1); SGOT 82 U/L (15-37); SGPT 60 U/L (14-59); TOTAL BILIRUBIN 0.4 mg/dL (0.2-1.0); TOTAL PROTEIN 7.3 g/dL (6.4-8.2); TROPONIN-I <0.06 ng/mL (<0.06)
[2021-04-09 06:31] LABS: BE(vivo) -4.3 mmol/L (-2 to +3); HCO3 19.9 mmol/L (22.0-26.0); PCO2 33.7 mmHg (35.0-45.0); PO2 58.1 mmHg (80.0-100.0); pH 7.388 (7.360-7.450); sO2 90.2 % (92.0-98.0)
[2021-04-09 06:55] LABS: URINE BILIRUBIN NEGATIVE (Negative); URINE BLOOD NEGATIVE (Negative); URINE CLARITY CLEAR; URINE COLOR YELLOW; URINE GLUCOSE-RANDOM* NEGATIVE (Negative); URINE KETONES NEGATIVE (Negative); URINE LEUKOCYTES-REFLEX NEGATIVE (Negative); URINE NITRITE-REFLEX NEGATIVE (Negative); URINE PROTEIN (DIPSTICK) TRACE (Negative); URINE UROBILINOGEN 0.2 E.U./dl (0.2-1.0)
--- NOTE | 2021-04-09 07:19 | EKG ---
[place] [address] [place] [address] ELECTROCARDIOGRAM REPORT Name: NEIDA TYSON Room #: [facility]#: [id number] Admission: 04/09/21 Attend Phys: Discharge: Date of : 34 Report #: [id number] [facility] ED Test Date: 2021-04-09 Test Time: 03:56:08 Pat Name: NEIDA TYSON Department: Room: Gender: F Manager Stone: DARNELL : 1935 Requested By: John Somers Order Number: [id number] MD: Agustín Jacobs Measurements Intervals [place] Rate: 128 P: NM: QRS: 26 QRSD: 84 T: QT: 345 QTc: 504 Interpretive Statements Atrial fibrillation Borderline low voltage, extremity leads Nonspecific T abnormalities, lateral leads Borderline prolonged QT interval Compared to ECG 02/21/2021 09:35:39 T-wave abnormality now present Electronically Signed On 04-09-2021 7:19:01 CDT by Agustín Jacobs [email or web address] <ELECTRONICALLY SIGNED> By: Agustín Jacobs MD, [facility] 04/09/21 0719 0356 035 Agustín Jacobs MD, FACC /EPI
[2021-04-09 07:51] VITALS: BP 135/66
[2021-04-09 08:26] VITALS: BP 139/75
--- NOTE | 2021-04-09 09:15 | NUR ---
PT ARRIVED TO CCU AT 0840. PT USED COMMODE AFTER ARRIVAL. PT DENIES PAIN OR SOB. PTS ADMISSION DETAILS AND ASSESSMENT COMPLETE. VSS. WILL CONTINUE TO MONITOR AND FOLLOW POC.
--- NOTE | 2021-04-09 11:34 | NUR ---
pts daughter in law Inocente notified of patients admission to hospital per patients request. Daughter in law Inocente states she will let son's Soham and Romain know.
[2021-04-09 15:24] VITALS: BP 125/80
[2021-04-09 20:17] VITALS: BP 105/57
[2021-04-09 23:46] VITALS: BP 119/65
--- NOTE | 2021-04-10 03:30 | NUR ---
PT IS PLEASANT AND COOPERATIVE. SHE SLEPT MOST OF THE NIGHT. PT APPEARS TO BE A MOUTH-BREATHER WHEN SLEEPING. SPO2 IN 80S ON 2L NC WHILE ASLEEP. INCREASED TO 5L NC TO MAINTAIN SPO2 >92%. AFIB ON TELE. HR 90S-120S MOST OF THE NIGHT. HEELS FLOATED OFF BED WITH PILLOWS. RIGHT ANKLE DRESSING C/D/I. PROGRESSING SLOWLY TOWARD POC GOALS. WILL CONTINUE TO MONITOR FURTHER.
[2021-04-10 04:21] VITALS: BP 96/60
[2021-04-10 05:25] LABS: ABSOLUTE NEUTROPHILS 4.2 thou/uL (1.4-8.2); BASOPHILS 0.8 % (0.0-2.0); EOSINOPHILS 1.5 % (0.0-3.0); HEMATOCRIT 32.3 % (37.0-47.0); HEMOGLOBIN 10.5 gm/dL (12.0-15.0); LYMPHOCYTES 14.4 % (24.0-44.0); MCH 25.7 pg (26.0-34.0); MCHC 32.5 g/dL (28.0-37.0); MONOCYTES 14.3 % (1.0-8.0); PLATELET COUNT 253 thou/uL (150-400); RBC 4.09 mil/uL (4.20-5.00); WBC 6.2 thou/uL (4.0-11.0)
[2021-04-10 05:37] LABS: CALCIUM 8.4 mg/dL (8.5-10.1); CREATININE 0.9 mg/dL (0.6-1.0)
[2021-04-10 06:06] LABS: POTASSIUM 3.6 mmol/L (3.5-5.1)
--- NOTE | 2021-04-10 06:50 | NUR ---
PT'S SON LIVIA CALLED UNIT FOR UPDATE. ALL QUESTIONS ANSWERED. HE WILL VISIT LATER TODAY.
[2021-04-10 07:30] VITALS: BP 102/53
--- NOTE | 2021-04-10 08:54 | NUR ---
ASSUMED PT CARE AT 0700, 0840 ASSESSMENT PERFORMED CHARTED. VSS. PT EDUCATED ON WHY POTASSIUM WAS ADDED TO HER MEDICATIONS THIS MORNING. PTS QUESTIONS ANSWERED AND SHE COMMUNICATES UNDERSTANDING. PT VOICES NO FUTHER CONCERNS AT THIS TIME. WILL WILL CONTINUE TO MONITOR AND FOLLOW POC.
--- NOTE | 2021-04-10 09:02 | NUR ---
85-year-old female brought in by EMS for complaint of heart palpitations to the ED. Admitted with A-fib RVR, Diastolic heart failure/dyspnea/pleural effusions, Sick sinus syndrome: pacemaker insertion with Dr. Lakhani 6 weeks ago, well healed. Hypertension. PVD/non-healing wounds R ankle/carotid artery disease: follows with Dr. Barr and Dr. Ernandez outpatient, COPD/nicotine use and S/p CPR/VT during last hospitalization. Current plan by cardiology is for medication adjustments. NOTE: COVID ID NOW Negative in ED. Patient discharged from acute rehab on 03-05-21 and discharged home with [facility]. Spoke with son Soham at [phone] and he plans to visit today and re-explained the role of CM and once MD's decided on next level of care CM will be in touch and follow for discharge planning.
[2021-04-10 11:55] VITALS: BP 92/49
[2021-04-10 16:14] VITALS: BP 111/61
[2021-04-10 20:24] VITALS: BP 106/62
--- NOTE | 2021-04-11 03:40 | NUR ---
PT RESTED WELL THOUGHOUT THE NIGHT, CONTINUES ON 3L NC WITHOUT COMPLAINT OF INCREASED SOA. PATIENT REMAINS IN AFIB,PACED. WORKING TOWARDS POC, WILL CONTINUE TO MONITOR PATIENT.
[2021-04-11 04:05] VITALS: BP 116/61
[2021-04-11 06:09] LABS: CALCIUM 8.4 mg/dL (8.5-10.1); CREATININE 0.8 mg/dL (0.6-1.0); POTASSIUM 3.7 mmol/L (3.5-5.1)
[2021-04-11 07:35] VITALS: BP 120/50
[2021-04-11 11:35] VITALS: BP 103/48
[2021-04-11] MEDS ORDERED: PULMICORT0.5 MG/21 INH (11:44)
[2021-04-11] MEDS ORDERED: PEPCID20 MG PO (11:44)
[2021-04-11] MEDS ORDERED: DIGOXIN125 MCG PO (11:44)
[2021-04-11] MEDS ORDERED: DEMADEX20 MG PO (11:44)
[2021-04-11] MEDS ORDERED: K-DUR 20 MEQ T20 MEQ PO (11:44)
--- NOTE | 2021-04-11 13:40 | NUR ---
RT WENT TO WALK PATIENT PT. IN SHOWER SPOKE WITH RN PATIENT DISCHARGING TOMORROW RT WILL WALK PATIENT AFTER BREAKFAST IN THE AM
--- NOTE | 2021-04-11 14:33 | NUR ---
5N evaled and patient not a candidate for acute rehab. Sp with patient and sons and alerted recommendation of skilled care. Patient has skilled list for review. She with sons present report her spouse at [facility] in past and prefers referral to [facility]. Faxed referral for review. Sp with Gavin in admissions. She reviewed eval and accepting of patient. Patient has rec vacination from [facility] in February. Sp with son Soham and alerted of dc in am. Transport at 1330. Left son Romain message on his phone of dc and timeframe.
[2021-04-11 15:40] VITALS: BP 114/51
--- NOTE | 2021-04-11 18:15 | NUR ---
RECEIVED THE PATIENT ON BED, CONSCIOUS AND ORIENTED.ON ROOM AIR BREATHING SPONTANEOUSLY.NOT IN PAIN OR DISTRESS.ALL NEEDS ATTENDED. HAD SHOWER TODAY
[2021-04-11 19:50] VITALS: BP 110/57
[2021-04-12 04:45] VITALS: BP 142/53
[2021-04-12 05:58] LABS: CALCIUM 8.5 mg/dL (8.5-10.1); CREATININE 0.8 mg/dL (0.6-1.0); POTASSIUM 4.1 mmol/L (3.5-5.1)
[2021-04-12 07:40] VITALS: BP 108/59
[2021-04-12] MEDS ORDERED: DIGOXIN125 MCG PO (08:13)
[2021-04-12] MEDS ORDERED: TOPROL XL100 MG PO (08:13)
[2021-04-12] MEDS ORDERED: DEMADEX20 MG PO (08:13)
[2021-04-12] MEDS ORDERED: K-DUR 20 MEQ T20 MEQ PO (08:13)
--- NOTE | 2021-04-12 10:33 | NUR ---
PT AMBULATED UNIT, WHEN RETURNIN TO UNIT HR ELEVATED TO 150 A-FIB. PT DENIES PAIN OR PALPATATIONS. DECREASED TO NORMAL QUICKLY WHEN SITTING
--- NOTE | 2021-04-12 12:39 | NUR ---
PT DISCHARGED TO SNF. ALL BELONGINGS SENT, FAMILY AT BEDSIDE, NURSE ATTEMPTED TO CALL REPORT WITH NO ANSWER. PT IN STABLE CONDITION UPON DISCHARGE,
--- NOTE | 2021-04-12 12:42 | NUR ---
Pt dc'd to [facility] this am at 1130. Son at bedside. Chart copy and order sent with the pt. Nursing attempted to call report. Orders faxed to admissions there yesterday evening. Pt to be skilled for therapy. Pt still needing o2. BPCI pt. The SNF is aware.
--- NOTE | 2021-04-15 08:10 | HC ---
[facility] [place] [address] CONSULTATION Name: NEIDA TYSON Room #: 205-P [facility] IN M.R.#: [id number] Admission: 04/09/21 Attend Phys: Dejon Camarena MD Discharge: 04/12/21 Date of : 34 Report #: [id number] THIS REPORT FOR: cc: Chevy Davis MD, Christopher B. MD Althoff, Jeffrey R. MD ~ DOC #: [id number] Gary Nascimento MD DATE OF SERVICE: 04/09/2021 DATE OF SERVICE: 04/09/2021. CHIEF COMPLAINT: Ankle ulcerations. HISTORY OF PRESENT ILLNESS: This is an 85-year-old female patient admitted to the hospital with increase in shortness of breath. She has had chronic ulcerations to her right ankle. She has been followed in the clinic. I have been asked to see her with regard to ongoing wound care. She denies significant pain at this time. PAST MEDICAL HISTORY: Positive for history of carotid artery disease, hypertension, chronic ulceration to the right leg, mesenteric artery stenosis, peripheral vascular disease, status post revascularization, atrial fibrillation and previous pacemaker placement. SOCIAL HISTORY: Positive for previous alcohol use. She is currently a daily smoker. FAMILY HISTORY: Noncontributory. MEDICATIONS: Include Plavix, Eliquis, mag ox, Ventolin. ALLERGIES: DILTIAZEM AND TRAMADOL. REVIEW OF SYSTEMS: CONSTITUTIONAL: Denies fever, chills or weight loss. NEURO: Denies focal weakness, numbness, or tingling. EYES: The patient denies visual changes, redness or drainage. ENT: The patient denies earache, nasal drainage, or sore throat. CARDIOVASCULAR: Denies chest pain, palpitations, or diaphoresis. PULMONARY: No cough, shortness of breath. GASTROINTESTINAL: No nausea, vomiting, or abdominal pain. ORTHOPEDIC: The patient notes the ulceration to her right ankle. Others systems on a 14-point review of systems are negative. PHYSICAL EXAMINATION: Include, [facility] [address] [place] [address] CONSULTATION Name: NEIDA TYSON Room #: 205-P [facility] IN ..#: [id number] Admission: 04/09/21 Attend Phys: Dejon Camarena MD Discharge: 04/12/21 Date of : 34 Report #: [id number] VITAL SIGNS: Temperature 97.7, pulse 117, respirations 25, blood pressure 113/75. GENERAL: This is a chronically ill-appearing female patient appears in minimal distress. HEENT: Head is normocephalic. Nose and throat clear. NECK: Supple. LUNGS: Diminished. HEART: Irregular without murmur. ABDOMEN: Soft. Bowel sounds present. EXTREMITIES: Lower extremities demonstrate the right ankle has ulcerations, both medially and laterally. The medial side larger than the lateral; however, these areas are healthy, clean, granulating and much improved since I last saw her. There is no evidence of infection at this time. LABORATORY DATA: Include sodium 133, potassium 5.5, chloride 101, CO2 of 23, BUN 30, creatinine 0.9, glucose 115. Albumin is 3.2. White blood cell count 8.4 with a hemoglobin of 11.0. CLINICAL IMPRESSION: 1. Chronic venous type ulceration of the right medial and lateral ankle, much improved since I last saw her. 2. Symptomatic bradycardia. 3. Atrial fibrillation with a rapid ventricular response. 4. History of congestive heart failure. 5. Chronic obstructive pulmonary disease. 6. Extensive tobacco use. 7. Moderate protein-calorie malnutrition. Albumin 3.2. RECOMMENDATIONS: At this point, I recommend Aquacel AG and bordered foam Thursday, Thursday and Thursday. Continue with medical management of her other issues. She will need ongoing nutritional support. I appreciate being asked to see her in consultation. Gary Nascimento MD JRA/DALTON <ELECTRONICALLY SIGNED> By: Gary Nascimento MD 04/15/21 0810 [id number] Gary Nascimento MD /nt
== END 2021-04-12 12:20 | DRG 291 ==
LOC: ER 03:45 → 2N 08:37
PROVIDERS: Emergency Medicine; Nurse Practitioner; ADMIT Hospitalist; ATTEND Hospitalist
PROC: 4B02XSZ Measurement of Cardiac Pacemaker, External Approach (ICD-10-PCS; principal; 2021-04-09)
DX: I11.0 Hypertensive heart disease with heart failure (principal); J96.21 Acute and chronic respiratory failure with hypoxia; J81.0 Acute pulmonary edema; J18.9 Pneumonia, unspecified organism; E44.0 Moderate protein-calorie malnutrition; L97.319 Non-pressure chronic ulcer of right ankle with unspecified severity; I48.20 Chronic atrial fibrillation, unspecified; J98.11 Atelectasis; R65.10 Systemic inflammatory response syndrome (SIRS) of non-infectious origin without acute organ dysfunction; I50.33 Acute on chronic diastolic (congestive) heart failure; Z20.822 Contact with and (suspected) exposure to COVID-19; I73.9 Peripheral vascular disease, unspecified; I49.5 Sick sinus syndrome; J44.9 Chronic obstructive pulmonary disease, unspecified; F17.210 Nicotine dependence, cigarettes, uncomplicated; E87.5 Hyperkalemia; Z66 Do not resuscitate; G62.9 Polyneuropathy, unspecified; R53.81 Other malaise; K59.00 Constipation, unspecified; M62.84 Sarcopenia; D50.9 Iron deficiency anemia, unspecified; I65.21 Occlusion and stenosis of right carotid artery; E87.6 Hypokalemia; Z87.81 Personal history of (healed) traumatic fracture; Z95.0 Presence of cardiac pacemaker; Z88.8 Allergy status to other drugs, medicaments and biological substances; Z82.49 Family history of ischemic heart disease and other diseases of the circulatory system; Z95.820 Peripheral vascular angioplasty status with implants and grafts; Z71.6 Tobacco abuse counseling
CPT/HCPCS: 10081

== ENCOUNTER → 2021-04-30 | Outpatient (CLI) | payer OTHER ==
[~2021-04-30] MED LIST changes: +DEMADEX20 MG PO; +PEPCID20 MG PO; +PULMICORT0.5 MG/21 INH; +TOPROL XL100 MG PO
== END ==
LOC: HYPER 08:30
PROVIDERS: ATTEND Emergency Medicine
DX: I70.233 Atherosclerosis of native arteries of right leg with ulceration of ankle (principal); L97.312 Non-pressure chronic ulcer of right ankle with fat layer exposed; L84 Corns and callosities; R60.0 Localized edema; I10 Essential (primary) hypertension; H26.9 Unspecified cataract; F17.200 Nicotine dependence, unspecified, uncomplicated; Z79.01 Long term (current) use of anticoagulants; Z79.899 Other long term (current) drug therapy; Z95.828 Presence of other vascular implants and grafts

== ENCOUNTER → 2021-05-31 | Outpatient (CLI) | payer OTHER | LOC: HYPER 05-29 14:04 | PROVIDERS: ATTEND Emergency Medicine | DX: I70.233 Atherosclerosis of native arteries of right leg with ulceration of ankle (principal); L97.312 Non-pressure chronic ulcer of right ankle with fat layer exposed; R60.0 Localized edema; L84 Corns and callosities; I10 Essential (primary) hypertension; H26.9 Unspecified cataract; F17.200 Nicotine dependence, unspecified, uncomplicated; Z79.01 Long term (current) use of anticoagulants; Z79.899 Other long term (current) drug therapy; Z95.828 Presence of other vascular implants and grafts ==

== ENCOUNTER → 2021-06-04 | Outpatient (CLI) | payer OTHER | LOC: SJCVCIMAG | PROVIDERS: ATTEND Nuclear Medicine Nuclear Cardiology | DX: I70.203 Unspecified atherosclerosis of native arteries of extremities, bilateral legs (principal); I77.9 Disorder of arteries and arterioles, unspecified; I48.91 Unspecified atrial fibrillation; I25.10 Atherosclerotic heart disease of native coronary artery without angina pectoris; K55.1 Chronic vascular disorders of intestine; J44.9 Chronic obstructive pulmonary disease, unspecified; I11.0 Hypertensive heart disease with heart failure; I50.30 Unspecified diastolic (congestive) heart failure; F17.210 Nicotine dependence, cigarettes, uncomplicated; Z98.890 Other specified postprocedural states; Z95.820 Peripheral vascular angioplasty status with implants and grafts; Z88.8 Allergy status to other drugs, medicaments and biological substances; Z79.899 Other long term (current) drug therapy; Z82.49 Family history of ischemic heart disease and other diseases of the circulatory system ==

== ENCOUNTER → 2021-06-07 | Outpatient (CLI) | payer OTHER | LOC: HYPER 08:06 | PROVIDERS: ATTEND Emergency Medicine | DX: I70.233 Atherosclerosis of native arteries of right leg with ulceration of ankle (principal); L97.312 Non-pressure chronic ulcer of right ankle with fat layer exposed; R60.0 Localized edema; L84 Corns and callosities; I10 Essential (primary) hypertension; H26.9 Unspecified cataract; F17.200 Nicotine dependence, unspecified, uncomplicated; Z79.01 Long term (current) use of anticoagulants; Z95.828 Presence of other vascular implants and grafts ==

== ENCOUNTER → 2021-06-11 | Outpatient (CLI) | payer OTHER | LOC: HYPER 08:38 | PROVIDERS: ATTEND Emergency Medicine | DX: I70.233 Atherosclerosis of native arteries of right leg with ulceration of ankle (principal); L97.312 Non-pressure chronic ulcer of right ankle with fat layer exposed; R60.0 Localized edema; L84 Corns and callosities; I10 Essential (primary) hypertension; H26.9 Unspecified cataract; F17.200 Nicotine dependence, unspecified, uncomplicated; Z79.01 Long term (current) use of anticoagulants; Z95.828 Presence of other vascular implants and grafts ==

== ENCOUNTER → 2021-06-19 | Outpatient (CLI) | payer OTHER | LOC: HYPER 08:11 | PROVIDERS: ATTEND Emergency Medicine | DX: I70.233 Atherosclerosis of native arteries of right leg with ulceration of ankle (principal); L97.312 Non-pressure chronic ulcer of right ankle with fat layer exposed; L84 Corns and callosities; R60.0 Localized edema; I10 Essential (primary) hypertension; H26.9 Unspecified cataract; F17.200 Nicotine dependence, unspecified, uncomplicated; Z79.01 Long term (current) use of anticoagulants; Z95.828 Presence of other vascular implants and grafts ==

== ENCOUNTER → 2021-06-26 | Outpatient (CLI) | payer OTHER | LOC: HYPER 08:00 | PROVIDERS: ATTEND Emergency Medicine | DX: I70.233 Atherosclerosis of native arteries of right leg with ulceration of ankle (principal); L97.312 Non-pressure chronic ulcer of right ankle with fat layer exposed; L84 Corns and callosities; R60.0 Localized edema; I10 Essential (primary) hypertension; H26.9 Unspecified cataract; F17.200 Nicotine dependence, unspecified, uncomplicated; Z79.01 Long term (current) use of anticoagulants; Z95.828 Presence of other vascular implants and grafts ==

== ENCOUNTER → 2021-07-03 | Outpatient (CLI) | payer OTHER | LOC: HYPER 08:11 | PROVIDERS: ATTEND Emergency Medicine | DX: I70.233 Atherosclerosis of native arteries of right leg with ulceration of ankle (principal); L97.312 Non-pressure chronic ulcer of right ankle with fat layer exposed; L84 Corns and callosities; R60.0 Localized edema; I10 Essential (primary) hypertension; H26.9 Unspecified cataract; F17.200 Nicotine dependence, unspecified, uncomplicated; Z79.01 Long term (current) use of anticoagulants; Z95.828 Presence of other vascular implants and grafts ==

== ENCOUNTER → 2021-07-11 | Outpatient (CLI) | payer OTHER | LOC: HYPER 08:19 | PROVIDERS: ATTEND Emergency Medicine | DX: I70.233 Atherosclerosis of native arteries of right leg with ulceration of ankle (principal); L97.312 Non-pressure chronic ulcer of right ankle with fat layer exposed; R60.0 Localized edema; L84 Corns and callosities; I10 Essential (primary) hypertension; H26.9 Unspecified cataract; F17.200 Nicotine dependence, unspecified, uncomplicated; Z95.828 Presence of other vascular implants and grafts; Z79.01 Long term (current) use of anticoagulants; Z79.899 Other long term (current) drug therapy ==

== ENCOUNTER → 2021-08-08 | Outpatient (CLI) | payer OTHER | LOC: HYPER 07:24 | PROVIDERS: ATTEND Emergency Medicine | DX: I70.233 Atherosclerosis of native arteries of right leg with ulceration of ankle (principal); L97.312 Non-pressure chronic ulcer of right ankle with fat layer exposed; R60.0 Localized edema; L84 Corns and callosities; I10 Essential (primary) hypertension; H26.9 Unspecified cataract; F17.200 Nicotine dependence, unspecified, uncomplicated; Z95.828 Presence of other vascular implants and grafts; Z79.01 Long term (current) use of anticoagulants; Z79.899 Other long term (current) drug therapy ==

== ENCOUNTER → 2021-08-22 | Outpatient (CLI) | payer OTHER | LOC: HYPER 09:20 | PROVIDERS: ATTEND Emergency Medicine | DX: I70.233 Atherosclerosis of native arteries of right leg with ulceration of ankle (principal); L97.312 Non-pressure chronic ulcer of right ankle with fat layer exposed; R60.0 Localized edema; L84 Corns and callosities; I10 Essential (primary) hypertension; H26.9 Unspecified cataract; F17.200 Nicotine dependence, unspecified, uncomplicated; Z95.828 Presence of other vascular implants and grafts; Z79.01 Long term (current) use of anticoagulants; Z79.899 Other long term (current) drug therapy ==

== ENCOUNTER → 2021-09-05 | Outpatient (CLI) | payer OTHER | LOC: HYPER 10:03 | PROVIDERS: ATTEND Emergency Medicine | DX: I70.233 Atherosclerosis of native arteries of right leg with ulceration of ankle (principal); L97.312 Non-pressure chronic ulcer of right ankle with fat layer exposed; R60.0 Localized edema; L84 Corns and callosities; I10 Essential (primary) hypertension; H26.9 Unspecified cataract; F17.200 Nicotine dependence, unspecified, uncomplicated; Z95.828 Presence of other vascular implants and grafts; Z79.01 Long term (current) use of anticoagulants ==

== ENCOUNTER → 2021-10-01 | Outpatient (CLI) | payer OTHER | LOC: HYPER 12:39 | PROVIDERS: ATTEND Emergency Medicine | DX: I70.233 Atherosclerosis of native arteries of right leg with ulceration of ankle (principal); L97.312 Non-pressure chronic ulcer of right ankle with fat layer exposed; R60.0 Localized edema; L84 Corns and callosities; I10 Essential (primary) hypertension; H26.9 Unspecified cataract; F17.200 Nicotine dependence, unspecified, uncomplicated; Z95.828 Presence of other vascular implants and grafts; Z79.01 Long term (current) use of anticoagulants ==

== ENCOUNTER → 2021-10-30 | Outpatient (CLI) | payer OTHER | LOC: HYPER 10:02 | PROVIDERS: ATTEND Emergency Medicine | DX: I70.233 Atherosclerosis of native arteries of right leg with ulceration of ankle (principal); L97.312 Non-pressure chronic ulcer of right ankle with fat layer exposed; R60.0 Localized edema; L84 Corns and callosities; I10 Essential (primary) hypertension; H26.9 Unspecified cataract; F17.200 Nicotine dependence, unspecified, uncomplicated; Z79.82 Long term (current) use of aspirin; Z79.899 Other long term (current) drug therapy; Z95.828 Presence of other vascular implants and grafts ==

== ENCOUNTER → 2021-11-20 | Outpatient (CLI) | payer OTHER | LOC: HYPER 09:53 | PROVIDERS: ATTEND Emergency Medicine | DX: I70.233 Atherosclerosis of native arteries of right leg with ulceration of ankle (principal); L97.312 Non-pressure chronic ulcer of right ankle with fat layer exposed; R60.0 Localized edema; L84 Corns and callosities; I10 Essential (primary) hypertension; H26.9 Unspecified cataract; F17.200 Nicotine dependence, unspecified, uncomplicated; Z79.82 Long term (current) use of aspirin; Z95.828 Presence of other vascular implants and grafts ==

== ENCOUNTER → 2021-11-20 | Outpatient (CLI) | payer OTHER ==
[~2021-11-20] MED LIST changes: +TYLENOL325 M1 PO
== END ==
LOC: SJCVCIMAG 11:32
PROVIDERS: ATTEND Nuclear Medicine Nuclear Cardiology
DX: I70.201 Unspecified atherosclerosis of native arteries of extremities, right leg (principal); I77.9 Disorder of arteries and arterioles, unspecified; I25.10 Atherosclerotic heart disease of native coronary artery without angina pectoris; I48.91 Unspecified atrial fibrillation; K55.1 Chronic vascular disorders of intestine; I49.9 Cardiac arrhythmia, unspecified; I65.21 Occlusion and stenosis of right carotid artery; J44.9 Chronic obstructive pulmonary disease, unspecified; I11.0 Hypertensive heart disease with heart failure; I50.30 Unspecified diastolic (congestive) heart failure; F17.210 Nicotine dependence, cigarettes, uncomplicated; Z79.899 Other long term (current) drug therapy; Z82.49 Family history of ischemic heart disease and other diseases of the circulatory system; Z88.8 Allergy status to other drugs, medicaments and biological substances

== ENCOUNTER → 2021-11-26 | Outpatient (CLI) | payer OTHER ==
[~2021-11-26] VITALS: Ht 162.6 cm; Wt 49.9 kg
[2021-11-26 09:51] LABS: HEMATOCRIT 38.9 % (37.0-47.0); HEMOGLOBIN 12.8 gm/dL (12.0-15.0); MCH 31.5 pg (26.0-34.0); MCHC 32.9 g/dL (28.0-37.0); MCV 95.7 fL (80.0-100.0); RBC 4.06 mil/uL (4.20-5.00); WBC 5.8 thou/uL (4.0-11.0)
[2021-11-26 10:04] LABS: CALCIUM 9.2 mg/dL (8.5-10.1); CREATININE 1.6 mg/dL (0.6-1.0); POTASSIUM 4.3 mmol/L (3.5-5.1)
--- NOTE | 2021-11-26 14:34 | NUR ---
EXITING MOLD TECHNICIAN PT HAD LOW BP. BLOOD PRESSURES REMAINED LOW IN HOLDING. LEVO GTT STARTED. TITRATED PER PROTOCOL. WILL UPDATE ORDERS PER [place] CV BLASTING HELPER, DR ROSENTHAL AND CHRISTIANNE. PT BP TRENDING UP AT THIS TIME.
--- NOTE | 2021-11-26 17:07 | NUR ---
PT BP STABILIZED AND REMAINED OVER 100 FOR SEVERAL ASSESSMENTS WELL A MANUAL. PT STATED SHE WAS HAPPY SHE COULD FEEL HER FEET. SHE DRESSED HERSELF AND HER GROIN SITE REMAINED INTACT WITH NO HEMATOMA. PT ABLE TO GET INTO WC EASILY AND GO HOME WITH HER SON. CHRISTIANNE STOPPED TO SEE PT BEFORE SHE DC'D
== END | disposition home or self-care (01) ==
LOC: CATH 07:37
PROVIDERS: Nuclear Medicine Nuclear Cardiology; ATTEND Internal Medicine Cardiovascular Disease
DX: I70.238 Atherosclerosis of native arteries of right leg with ulceration of other part of lower leg (principal); L97.919 Non-pressure chronic ulcer of unspecified part of right lower leg with unspecified severity; K55.1 Chronic vascular disorders of intestine; I70.1 Atherosclerosis of renal artery; I77.4 Celiac artery compression syndrome; I70.211 Atherosclerosis of native arteries of extremities with intermittent claudication, right leg; I11.0 Hypertensive heart disease with heart failure; I50.30 Unspecified diastolic (congestive) heart failure; I25.10 Atherosclerotic heart disease of native coronary artery without angina pectoris; I48.91 Unspecified atrial fibrillation; E78.5 Hyperlipidemia, unspecified; K21.9 Gastro-esophageal reflux disease without esophagitis; Z98.890 Other specified postprocedural states; Z79.899 Other long term (current) drug therapy; Z87.891 Personal history of nicotine dependence; Z79.01 Long term (current) use of anticoagulants

== ENCOUNTER → 2021-12-05 | Outpatient (CLI) | payer OTHER | LOC: HYPER 08:59 | PROVIDERS: ATTEND Emergency Medicine | DX: I70.233 Atherosclerosis of native arteries of right leg with ulceration of ankle (principal); L97.312 Non-pressure chronic ulcer of right ankle with fat layer exposed; R60.0 Localized edema; L84 Corns and callosities; I10 Essential (primary) hypertension; H26.9 Unspecified cataract; F17.200 Nicotine dependence, unspecified, uncomplicated; Z79.82 Long term (current) use of aspirin; Z95.828 Presence of other vascular implants and grafts ==